=== PATIENT | male | born 1940 | race Caucasian/White ===

== ENCOUNTER 2016-11-21 15:38 | Inpatient (IN) ==
[2016-11-21 19:36] LABS: Basophils # 0.1 10*3/uL (0.0-0.2); Basophils % 0.7 % (0.0-0.8); Eosinophils # 0.1 10*3/uL (0.0-0.87); Hematocrit 42.9 VOL% (42.0-52.0); Hemoglobin 14.7 GM/DL (14.0-18.0); Immature Granulocytes % 0.1 %; Immature Granulocytes Absolute 0.01 #; Lymphocytes # 3.4 10*3/uL (1.4-4.0); Lymphocytes % 49.8 % (21.2-54.2); Mean Corpuscular HGB Conc 34.3 GM/DL (32-36); Mean Corpuscular Hemoglobin 31 PG (27-34); Mean Corpuscular Volume 89.9 FL (87-102); Monocytes % 14.2 % (1.7-12.7); Neutrophils # 2.3 10*3/uL (1.4-7.4); Neutrophils % 33.2 % (38.7-73.9); Platelet Count 409 T/CUMM (130-400); Red Blood Count 4.77 MC/CUMM (3.8-5.5); White Blood Count 6.8 T/CUMM (4-12)
[2016-11-21 19:57] LABS: Calcium 8.4 MG/DL (8.5-10.1); Osmolality,Calculated 280.3 MOS/KG (273-304); Potassium 4.1 MMOL/L (3.5-5.1)
[2016-11-21 20:57] LABS: Eosinophils 1 % (0-10); Lymphocytes 48 % (20-55); Platelet Estimate Normal; Segmented Neutrophils 37 % (50-85); Total Cells Counted 100
[2016-11-21] MEDS: DESITIN 4OZ/NYSTATIN 15 GRAM MIXTURE PASTE TOP SCH (21:36)
[2016-11-21] MEDS: CHLORHEXIDINE 4% SOLN 118 ML BOTTLE TOP SCH (21:40)
[2016-11-21] MEDS: CHLORHEXIDINE 0.12% ORAL RINSE 60 ML BOTTLE SWISH/SPIT SCH (21:40)
[2016-11-22 06:23] LABS: Basophils # 0.1 10*3/uL (0.0-0.2); Basophils % 0.7 % (0.0-0.8); Eosinophils # 0.2 10*3/uL (0.0-0.87); Eosinophils % 3.2 % (0.00-10.9); Hematocrit 42.5 VOL% (42.0-52.0); Hemoglobin 14.1 GM/DL (14.0-18.0); Immature Granulocytes % 0.1 %; Immature Granulocytes Absolute 0.01 #; Lymphocytes # 2.8 10*3/uL (1.4-4.0); Lymphocytes % 40.3 % (21.2-54.2); Mean Corpuscular HGB Conc 33.2 GM/DL (32-36); Mean Corpuscular Hemoglobin 30 PG (27-34); Mean Platelet Volume 9.1 FL (9.6-12.0); Monocytes % 14.3 % (1.7-12.7); Neutrophils # 2.9 10*3/uL (1.4-7.4); Neutrophils % 41.4 % (38.7-73.9); Platelet Count 410 T/CUMM (130-400); Red Blood Count 4.72 MC/CUMM (3.8-5.5); Red Cell Distribution Width 14.9 % (9.3-17.3)
[2016-11-22] MEDS: SODIUM CHLORIDE 0.9% 1,000 ML IV SCH ×2 (07:30→19:10)
--- NOTE | 2016-11-22 08:20 | XRay Report ---
XR chest 2V Date: 11/22/2016 4:00 AM History: Coronary artery disease Comparison: None Technique: PA and lateral chest Findings: The heart is minimally enlarged with calcification in the aortic knob. Coronary artery calcifications/stents. Calcified granulomata/nodes with diffuse parenchymal findings especially at the lung bases. Bilateral pleural thickening which is slightly more pronounced on the right. Unremarkable mediastinum with degenerative changes. Impression: Minimal cardiomegaly with coronary artery calcification/stents. Old healed granulomatous disease with probable chronic scarring with atelectasis at the lung bases. Bilateral pleural thickening which is more pronounced on the right. PROCEDURE INTERPRETED AT [facility] DEPARTMENT OF RADIOLOGY Final Report Signed by: Dr. Verito Bedolla
--- NOTE | 2016-11-22 09:02 | EKG Report ---
Stationary ECG Study [facility] Test Date: 11/22/2016 7:46:58 AM Pat Name: ADRI TORRE Department: Room: 294 Gender: M Records Analysis Manager: PACO : 1940 Requested by: Anselmo Rice Order Number: [id number] Reading MD: COLIN ROJAS Intervals [place] Rate: 66 P: 54 DE: 159 QRS: 83 QRSD: 107 T: -9 QT: 418 QTc: 431 Interpretive Statements SINUS RHYTHM MODERATE ST DEPRESSION ABNORMAL QRS-T ANGLE Electronically Signed On 11-24-16 15:42:22 CDT by COLIN ROJAS [email or web address]
--- NOTE | 2016-11-22 10:11 | Cardiothoracic History & Phys ---
Assessment and Plan - Time spent with patient Time spent with patient: Greater than 30 minutes Time spent discussing smoking cessation with patient: more than 10 minutes (1) Coronary arteriosclerosis Status: Acute Assessment and plan: Risk Model and Variables - STS Adult Cardiac Surgery Database Version 2.81 RISK SCORES About the STS Risk Calculator Procedure: AV Replacement + CAB Risk of Mortality: 4.356% Morbidity or Mortality: 26.943% Long Length of Stay: 16.517% Short Length of Stay: 17.739% Permanent Stroke: 1.488% Prolonged Ventilation: 19.08% DSW Infection: 0.968% Renal Failure: 10.115% Reoperation: 10.944% 76-year-old gentleman with severe aortic stenosis as well as single-vessel 80% stenosis of his LAD. The patient did have stent placed in 2010 and his LAD. This stenosis is proximal to it. The patient did have chest pain at rest that lasted 5 minutes prior to presentation to his elective cath. I transferred him from [place] over here for observation. The patient will need coronary artery bypass graft combined with aortic valve replacement however the patient has been on Plavix and the last Plavix was administered on November 21. Will need to hold the Plavix for at least 5 days. I tentatively scheduled him for surgery on November 26 for combined CABG/AVR. Risks benefits benefits and alternatives were discussed with the patient and he is willing and eager to proceed with the surgery. We will be observing for any chest pain development due to his unstable angina over the next few days. Current Visit: Yes History of Present Illness Chief complaint: Chest pain History of present illness: Mr. Kam is a 76 year old male who has a known aortic stenosis for the past few months. He has been having progressive shortness of breath. Upon questioning more he noted that he had 5 minutes of chest pain the night before his elective cath that was done at [place]. His cath showed 80% stenosis of his proximal LAD proximal to the stent that was placed back in 2010. Otherwise the patient has been active. He lost 12 pounds intentionally during the past few weeks. Home Medications Medication Instructions Recorded Confirmed Type Aspirin [Aspirin EC] 81 mg PO DAILY 11/21/16 11/21/16 History Azithromycin [Azithromycin] 500 mg PO DAILY 11/21/16 11/21/16 History Carvedilol [Carvedilol] 25 mg PO BID 11/21/16 11/21/16 History Cholecalciferol (Vitamin D3) 1 capsule PO DAILY 11/21/16 11/21/16 History [Vitamin D3] Cinnamon Bark [Cinnamon] 2,000 mg PO DAILY 11/21/16 11/21/16 History Clopidogrel Bisulfate [Clopidogrel] 75 mg PO DAILY 11/21/16 11/21/16 History Krill Oil 2,500 mg PO BEDTIME 11/21/16 11/21/16 History Minocycline [Minocin] 50 mg PO BID 11/21/16 11/21/16 History metFORMIN [Glucophage] 1,000 mg PO BID W/MEALS 11/21/16 11/21/16 History Allergies Allergy/AdvReac Type Severity Reaction Status Date / Time Horse/Equine Containing Allergy Intermediate RASH Verified 11/21/16 18:31 Products Khdpykc-Kqn-Eju Reductase AdvReac Intermediate Cramping Verified 11/21/16 18:31 Inhibitor of the Muscles 12 point system: reviewed and no additional remarkable complaints except as stated (HPI) Medical,Surgical,& Family Hx - Medical History Cardio: History of: Cardiac Dysrhythmia, CAD, Hypertension, Valvular Heart Disease Neurology: History of: Migraine Endocrine: History of: Diabetes Mellitus (NIDDM), Dyslipidemia Respiratory: History of: Asthma Genitourinary: History of: Kidney Stones, Prostate Problems Musculoskeletal: History of: Back/Neck Problems, Degenerative Disk Disease, Herniated Disk, Musculoskeletal Problems No history of: Amputation Hematology: No history of: Blood Transfusion Reaction - Surgical History Cardiac Surgeries: Sugical HX of: Cardiac Catheterization Thoracic Surgeries: Patient denies;: Organ Transplant, Lobectomy Neurologic Surgeries: Patient denies: Neurologic Surgery HEENT Surgeries: Patient denies: Tonsilectomy & Adenoidectomy Abdominal Surgeries: Surgical HX of: Abdominal Surgery (spleen) Reproductive Surgeries: Patient denies;: Genitourinary Surgery - Family History Family History: Reports;: Family Diabetes, Family Heart Disease, Family Hypertension - Social History Smoking Status: Former smoker Frequency of Alcohol Use: None Type of Drug Use: None Cardiology Physical Exam - Constitutional Vitals: Vital Signs Temp Pulse Resp BP Pulse Ox 97.4 F L 65 18 135/62 95 11/22/16 08:15 11/22/16 08:15 11/22/16 08:15 11/22/16 08:15 11/22/16 08:15 Intake and Output 11/21/16 11/22/16 11/22/16 22:59 06:59 14:59 Intake Total 120 / 120 120 / 120 Output Total 250 / 250 200 / 200 Balance -130 / -130 -80 / -80 Intake: Oral 120 / 120 120 / 120 Output: Urine 250 / 250 200 / 200 Other: Weight 122.47 kg 122.47 kg General appearance: morbidly obese - Head Head exam: Present: normal inspection - Eye Eye exam: Present: EOMI Pupils: Present: [place] - ENT ENT exam: Present: normal exam - Neck Neck exam: Present: normal inspection - Respiratory Respiratory exam: Present: prolonged expiratory phase, wheezes - Cardiovascular Cardiovascular exam: Present: regular rate and rhythm - GI/Abdominal GI/Abdominal exam: Present: normal bowel sounds Result/EKG - Labs CBC & BMP: 11/22/16 06:08 11/21/16 19:18 Labs: Laboratory Results - last 24 hr 11/21/16 11/21/16 11/21/16 18:42 19:18 19:18 WBC 6.8 RBC 4.77 Hgb 14.7 Hct 42.9 MCV 89.9 MCH 31 MCHC 34.3 RDW 15.0 Plt Count 409 H MPV 9.0 L Neut % (Auto) 33.2 L Lymph % (Auto) 49.8 [place] % (Auto) 14.2 H Eos % (Auto) 2.0 Baso % (Auto) 0.7 Neut # (Auto) 2.3 Lymph # (Auto) 3.4 [place] # (Auto) 1.0 H Eos # (Auto) 0.1 Baso # (Auto) 0.1 Total Counted 100 Immature Gran % 0.1 Nucleated RBC % 0.0 Immature Gran # 0.01 Segmented Neutrophils 37 L Lymphocytes 48 Monocytes 14 Eosinophils 1 Nucleated RBCs # 0.00 Platelet Estimate Normal Pappenheimer Bodies Medical Coder Sodium 141 Potassium 4.1 Chloride 106 Carbon Dioxide 27 Anion Gap 12.1 BUN 11 Creatinine 0.80 GFR Calculation 119 BUN/Creatinine Ratio 13.00 Glucose 123 H POC Glucose 145 H Calculated Osmolality 280.3 Calcium 8.4 L 11/21/16 11/22/16 23:39 06:08 WBC 7.0 RBC 4.72 Hgb 14.1 Hct 42.5 MCV 90.0 MCH 30 MCHC 33.2 RDW 14.9 Plt Count 410 H MPV 9.1 L Neut % (Auto) 41.4 Lymph % (Auto) 40.3 [place] % (Auto) 14.3 H Eos % (Auto) 3.2 Baso % (Auto) 0.7 Neut # (Auto) 2.9 Lymph # (Auto) 2.8 [place] # (Auto) 1.0 H Eos # (Auto) 0.2 Baso # (Auto) 0.1 Total Counted Immature Gran % 0.1 Nucleated RBC % 0.0 Immature Gran # 0.01 Segmented Neutrophils Lymphocytes Monocytes Eosinophils Nucleated RBCs # 0.00 Platelet Estimate Pappenheimer Bodies Sodium Potassium Chloride Carbon Dioxide Anion Gap BUN Creatinine GFR Calculation BUN/Creatinine Ratio Glucose POC Glucose 147 H Calculated Osmolality Calcium Quality Measures - Stroke Symptom Onset Unknown: No
[2016-11-22] MEDS: CHLORHEXIDINE 4% SOLN 118 ML BOTTLE TOP SCH ×2 (13:12→19:11)
[2016-11-22] MEDS: CHLORHEXIDINE 0.12% ORAL RINSE 60 ML BOTTLE SWISH/SPIT SCH ×2 (13:12→21:10)
[2016-11-22] MEDS: DESITIN 4OZ/NYSTATIN 15 GRAM MIXTURE PASTE TOP SCH ×2 (13:26→21:10)
[2016-11-22] MEDS: ENOXAPARIN 40 MG/0.4 ML SYRINGE SUBCUT SCH (13:26)
--- NOTE | 2016-11-22 14:14 | Cardiology Consult Note ---
Assessment and Plan (1) Aortic stenosis, severe Status: Acute Assessment and plan: 1. 76-year-old BMI 40 WM with controlled hypertension, untreated dyslipidemia ( statins cause cramping after several days), NIDDM, JORDAN (reports he uses CPAP religiously) known CAD status post LAD stenting in 2010, with known severe aortic stenosis with worsening dyspnea on exertion, and some modest exertional angina (worrisome prognostic sign if it is due to aortic stenosis), with recent heart catheterization showing 80% proximal LAD stenosis, admitted for planned AVR/CABG 2. Will resume Coreg and baby aspirin 3. Plavix is being held since yesterday for planned surgery next Friday. 4. We discussed starting statin every other day before his surgery as this may improve his outcome; he can be discontinued if he has side effects, but he has no allergy. 5. He describes what may be paroxysmal atrial fibrillation, but I have no documentation of this. He is in normal sinus rhythm currently. He has no history of TIA stroke, blood clot, or bleeding problems. 6. We will check back on Friday, call cardiology on the if needed. Current Visit: Yes (2) Angina effort Status: Acute Current Visit: Yes History of Present Illness - Consult Narrative History of present illness: Mr. Kam is a 76 year old male followed by Dr. Dugan at [facility] who is had severe aortic stenosis for some time. He had a episode of chest "burning" while lying in bed last week. He reports this concerned Dr. Dugan he brought him in for heart catheterization to better evaluate his aortic stenosis. He had 80% proximal LAD stenosis and his aortic stenosis was felt to be critical. He was transferred here for bypass and AVR. His last dose of Plavix was reported yesterday. He denies any history of blood clots or bleeding problems. He denies any history of TIA or stroke. Denies history of heart attack. He reports that he uses CPAP religiously. CC: Anselmo Rice - Home Medications and Allergies Home Medications: Home Medications Medication Instructions Recorded Confirmed Type Aspirin [Aspirin EC] 81 mg PO DAILY 11/21/16 11/21/16 History Azithromycin [Azithromycin] 500 mg PO DAILY 11/21/16 11/21/16 History Carvedilol [Carvedilol] 25 mg PO BID 11/21/16 11/21/16 History Cholecalciferol (Vitamin D3) 1 capsule PO DAILY 11/21/16 11/21/16 History [Vitamin D3] Cinnamon Bark [Cinnamon] 2,000 mg PO DAILY 11/21/16 11/21/16 History Clopidogrel Bisulfate [Clopidogrel] 75 mg PO DAILY 11/21/16 11/21/16 History Krill Oil 2,500 mg PO BEDTIME 11/21/16 11/21/16 History Minocycline [Minocin] 50 mg PO BID 11/21/16 11/21/16 History metFORMIN [Glucophage] 1,000 mg PO BID W/MEALS 11/21/16 11/21/16 History Allergies/Adverse Reactions: Allergies Allergy/AdvReac Type Severity Reaction Status Date / Time Horse/Equine Containing Allergy Intermediate RASH Verified 11/21/16 18:31 Products Jyzkqwy-Lpo-Zrw Reductase AdvReac Intermediate Cramping Verified 11/21/16 18:31 Inhibitor of the Muscles Medical,Surgical,& Family Hx - Medical History Cardio: History of: Cardiac Dysrhythmia, CAD, Hypertension, Valvular Heart Disease Neurology: History of: Migraine Endocrine: History of: Diabetes Mellitus (NIDDM), Dyslipidemia Respiratory: History of: Asthma Genitourinary: History of: Kidney Stones, Prostate Problems Musculoskeletal: History of: Back/Neck Problems, Degenerative Disk Disease, Herniated Disk, Musculoskeletal Problems No history of: Amputation Hematology: No history of: Blood Transfusion Reaction - Surgical History Cardiac Surgeries: Sugical HX of: Cardiac Catheterization Thoracic Surgeries: Patient denies;: Organ Transplant, Lobectomy Neurologic Surgeries: Patient denies: Neurologic Surgery HEENT Surgeries: Patient denies: Tonsilectomy & Adenoidectomy Abdominal Surgeries: Surgical HX of: Abdominal Surgery (spleen) Reproductive Surgeries: Patient denies;: Genitourinary Surgery - Family History Family History: Reports;: Family Diabetes, Family Heart Disease, Family Hypertension - Social History Smoking Status: Former smoker Frequency of Alcohol Use: None Type of Drug Use: None Physical Examination Vital Signs Temp Pulse Resp BP Pulse Ox 97.4 F L 67 18 143/66 92 L 11/21/16 18:23 11/21/16 18:23 11/21/16 18:23 11/21/16 18:23 11/21/16 18:23 General: Present: Appears Well, No Apparent Distress HEENT: Present: Normocephaly Neck: Present: Supple Neck, No JVD/HJR Cardiac: Present: Reg Rate and Rhythm, Systolic Murmur. Absent: Diastolic Murmur Lungs: Present: Decreased Breath Sounds, No Wheezes, No Rales Abdomen: Present: Soft, Non-Tender Extremities: Present: +1 Edema. Absent: Cyanosis Result/EKG - Labs CBC & BMP: 11/22/16 06:08 11/21/16 19:18 Labs: Laboratory Results - last 24 hr 11/21/16 11/21/16 11/21/16 18:42 19:18 19:18 WBC 6.8 RBC 4.77 Hgb 14.7 Hct 42.9 MCV 89.9 MCH 31 MCHC 34.3 RDW 15.0 Plt Count 409 H MPV 9.0 L Neut % (Auto) 33.2 L Lymph % (Auto) 49.8 [place] % (Auto) 14.2 H Eos % (Auto) 2.0 Baso % (Auto) 0.7 Neut # (Auto) 2.3 Lymph # (Auto) 3.4 [place] # (Auto) 1.0 H Eos # (Auto) 0.1 Baso # (Auto) 0.1 Total Counted 100 Immature Gran % 0.1 Nucleated RBC % 0.0 Immature Gran # 0.01 Segmented Neutrophils 37 L Lymphocytes 48 Monocytes 14 Eosinophils 1 Nucleated RBCs # 0.00 Platelet Estimate Normal Pappenheimer Bodies Oncology Account Specialist Sodium 141 Potassium 4.1 Chloride 106 Carbon Dioxide 27 Anion Gap 12.1 BUN 11 Creatinine 0.80 GFR Calculation 119 BUN/Creatinine Ratio 13.00 Glucose 123 H POC Glucose 145 H Calculated Osmolality 280.3 Calcium 8.4 L 11/21/16 11/22/16 23:39 06:08 WBC 7.0 RBC 4.72 Hgb 14.1 Hct 42.5 MCV 90.0 MCH 30 MCHC 33.2 RDW 14.9 Plt Count 410 H MPV 9.1 L Neut % (Auto) 41.4 Lymph % (Auto) 40.3 [place] % (Auto) 14.3 H Eos % (Auto) 3.2 Baso % (Auto) 0.7 Neut # (Auto) 2.9 Lymph # (Auto) 2.8 [place] # (Auto) 1.0 H Eos # (Auto) 0.2 Baso # (Auto) 0.1 Total Counted Immature Gran % 0.1 Nucleated RBC % 0.0 Immature Gran # 0.01 Segmented Neutrophils Lymphocytes Monocytes Eosinophils Nucleated RBCs # 0.00 Platelet Estimate Pappenheimer Bodies Sodium Potassium Chloride Carbon Dioxide Anion Gap BUN Creatinine GFR Calculation BUN/Creatinine Ratio Glucose POC Glucose 147 H Calculated Osmolality Calcium Quality Measures - Stroke Symptom Onset Unknown: No
[2016-11-22] MEDS: CARVEDILOL 12.5 MG TABLET PO SCH (21:10)
[2016-11-23 05:56] LABS: Basophils # 0.1 10*3/uL (0.0-0.2); Basophils % 0.8 % (0.0-0.8); Eosinophils # 0.3 10*3/uL (0.0-0.87); Eosinophils % 4.2 % (0.00-10.9); Hematocrit 43.7 VOL% (42.0-52.0); Hemoglobin 14.7 GM/DL (14.0-18.0); Immature Granulocytes % 0.3 %; Immature Granulocytes Absolute 0.02 #; Lymphocytes # 2.7 10*3/uL (1.4-4.0); Lymphocytes % 43.9 % (21.2-54.2); Mean Corpuscular HGB Conc 33.6 GM/DL (32-36); Mean Corpuscular Hemoglobin 30 PG (27-34); Mean Corpuscular Volume 90.5 FL (87-102); Monocytes # 0.9 10*3/uL (0.11-0.8); Neutrophils # 2.2 10*3/uL (1.4-7.4); Neutrophils % 35.8 % (38.7-73.9); Platelet Count 396 T/CUMM (130-400); Red Blood Count 4.83 MC/CUMM (3.8-5.5); Red Cell Distribution Width 14.7 % (9.3-17.3); White Blood Count 6.2 T/CUMM (4-12)
[2016-11-23 06:19] LABS: Magnesium 2.2 MG/DL (1.8-2.4); Osmolality,Calculated 281.3 MOS/KG (273-304); Potassium 4.2 MMOL/L (3.5-5.1)
[2016-11-23 06:29] LABS: Eosinophils 2 % (0-10); Hypochromasia 1+; Lymphocytes 52 % (20-55); Segmented Neutrophils 34 % (50-85); Total Cells Counted 100
[2016-11-23 06:30] LABS: Platelet Estimate Normal
[2016-11-23] MEDS: ASPIRIN CHEW 81 MG TABLET PO SCH (09:18)
[2016-11-23] MEDS: CARVEDILOL 12.5 MG TABLET PO SCH ×2 (09:18→21:55)
[2016-11-23] MEDS: DESITIN 4OZ/NYSTATIN 15 GRAM MIXTURE PASTE TOP SCH ×2 (09:19→22:01)
[2016-11-23] MEDS: CHLORHEXIDINE 0.12% ORAL RINSE 60 ML BOTTLE SWISH/SPIT SCH ×2 (09:19→21:56)
[2016-11-23] MEDS ORDERED: DEXTROSE 50% 25 GM/50 ML VIAL IV PRN (13:28)
[2016-11-23] MEDS ORDERED: GLUCAGON 1 MG VIAL IM PRN (13:28)
[2016-11-23] MEDS: ENOXAPARIN 40 MG/0.4 ML SYRINGE SUBCUT SCH (15:06)
[2016-11-23] MEDS: INSULIN REGULAR 100 UNIT/ML SUBCUT SCH ×2 (16:51→21:40)
[2016-11-23] MEDS: metFORMIN 500 MG TABLET PO SCH (17:23)
[2016-11-23] MEDS: SODIUM CHLORIDE 0.9% 1,000 ML IV SCH (17:36)
[2016-11-24 04:13] LABS: Basophils # 0.1 10*3/uL (0.0-0.2); Basophils % 0.9 % (0.0-0.8); Eosinophils # 0.4 10*3/uL (0.0-0.87); Eosinophils % 5.5 % (0.00-10.9); Hematocrit 42.4 VOL% (42.0-52.0); Hemoglobin 14.1 GM/DL (14.0-18.0); Immature Granulocytes % 0.3 %; Immature Granulocytes Absolute 0.02 #; Lymphocytes # 3.5 10*3/uL (1.4-4.0); Lymphocytes % 50.9 % (21.2-54.2); Mean Corpuscular HGB Conc 33.3 GM/DL (32-36); Mean Corpuscular Hemoglobin 30 PG (27-34); Mean Corpuscular Volume 89.5 FL (87-102); Mean Platelet Volume 9.3 FL (9.6-12.0); Monocytes % 14.4 % (1.7-12.7); Neutrophils # 1.9 10*3/uL (1.4-7.4); Platelet Count 431 T/CUMM (130-400); Red Blood Count 4.74 MC/CUMM (3.8-5.5); Red Cell Distribution Width 14.8 % (9.3-17.3); White Blood Count 6.9 T/CUMM (4-12)
[2016-11-24 04:37] LABS: Calcium 8.9 MG/DL (8.5-10.1); Magnesium 2.1 MG/DL (1.8-2.4); Osmolality,Calculated 279.4 MOS/KG (273-304); Potassium 4.4 MMOL/L (3.5-5.1)
[2016-11-24 04:59] LABS: Eosinophils 5 % (0-10); Lymphocytes 50 % (20-55); Segmented Neutrophils 34 % (50-85); Total Cells Counted 100
[2016-11-24 05:00] LABS: Platelet Estimate Normal
[2016-11-24] MEDS: DESITIN 4OZ/NYSTATIN 15 GRAM MIXTURE PASTE TOP SCH ×2 (09:00→22:15)
[2016-11-24] MEDS: CHLORHEXIDINE 0.12% ORAL RINSE 60 ML BOTTLE SWISH/SPIT SCH ×2 (09:00→22:15)
[2016-11-24] MEDS: CARVEDILOL 12.5 MG TABLET PO SCH ×2 (09:18→22:16)
[2016-11-24] MEDS: ASPIRIN CHEW 81 MG TABLET PO SCH (09:18)
[2016-11-24] MEDS: INSULIN REGULAR 100 UNIT/ML SUBCUT SCH ×4 (09:55→22:40)
[2016-11-24] MEDS: metFORMIN 500 MG TABLET PO SCH ×2 (09:57→18:31)
[2016-11-24] MEDS: CIPROFLOXACIN/DEXAMETHASONE OTIC SUSP 7.5 ML BOTTLE BOTH EARS SCH ×2 (10:43→22:13)
--- NOTE | 2016-11-24 11:14 | Cardiothoracic Progress Note ---
Assessment and Plan (1) Coronary arteriosclerosis Status: Acute Assessment and plan: 76-year-old gentleman with severe aortic stenosis and a single-vessel left anterior descending coronary disease. The patient was transferred here for combined CABG aVR. He also was noted to have some unstable angina symptoms prior to admission. He was being placed under observation for that purpose. He is scheduled for surgery on Saturday, November 26, 2016. He currently has no symptoms. Of note the patient was on Plavix until . Current Visit: Yes Exam (Progress Note) - Constitutional Vitals: Period Temp Pulse Resp BP Sys/Brock Pulse Ox Last 24 Hr 97.9 F-98.6 F 72-80 18-20 105-145/52-83 91-96 Result/EKG - Labs CBC & BMP: 11/24/16 03:24 11/24/16 03:24 Labs: Laboratory Results - last 24 hr 11/23/16 11/23/16 11/24/16 16:23 20:49 03:24 WBC 6.9 RBC 4.74 Hgb 14.1 Hct 42.4 MCV 89.5 MCH 30 MCHC 33.3 RDW 14.8 Plt Count 431 H MPV 9.3 L Neut % (Auto) 28.0 L Lymph % (Auto) 50.9 [place] % (Auto) 14.4 H Eos % (Auto) 5.5 Baso % (Auto) 0.9 H Neut # (Auto) 1.9 Lymph # (Auto) 3.5 [place] # (Auto) 1.0 H Eos # (Auto) 0.4 Baso # (Auto) 0.1 Total Counted 100 Immature Gran % 0.3 Nucleated RBC % 0.0 Immature Gran # 0.02 Segmented Neutrophils 34 L Lymphocytes 50 Monocytes 10 Eosinophils 5 Basophils 1.0 H Nucleated RBCs # 0.00 Platelet Estimate Normal Pappenheimer Bodies Accounts Receivable Supervisor Sodium Potassium Chloride Carbon Dioxide Anion Gap BUN Creatinine GFR Calculation BUN/Creatinine Ratio Glucose POC Glucose 112 H 134 H Calculated Osmolality Calcium Magnesium 11/24/16 03:24 WBC RBC Hgb Hct MCV MCH MCHC RDW Plt Count MPV Neut % (Auto) Lymph % (Auto) [place] % (Auto) Eos % (Auto) Baso % (Auto) Neut # (Auto) Lymph # (Auto) [place] # (Auto) Eos # (Auto) Baso # (Auto) Total Counted Immature Gran % Nucleated RBC % Immature Gran # Segmented Neutrophils Lymphocytes Monocytes Eosinophils Basophils Nucleated RBCs # Platelet Estimate Pappenheimer Bodies Sodium 140 Potassium 4.4 Chloride 105 Carbon Dioxide 25 Anion Gap 14.4 BUN 13 Creatinine 0.80 GFR Calculation 119 BUN/Creatinine Ratio 16.00 Glucose 124 H POC Glucose Calculated Osmolality 279.4 Calcium 8.9 Magnesium 2.1 Quality Measures - Stroke Symptom Onset Unknown: No
[2016-11-24] MEDS: ENOXAPARIN 40 MG/0.4 ML SYRINGE SUBCUT SCH (12:13)
[2016-11-25 06:02] LABS: Basophils # 0.1 10*3/uL (0.0-0.2); Eosinophils # 0.3 10*3/uL (0.0-0.87); Eosinophils % 4.8 % (0.00-10.9); Hematocrit 42.3 VOL% (42.0-52.0); Hemoglobin 14.3 GM/DL (14.0-18.0); Immature Granulocytes % 0.1 %; Immature Granulocytes Absolute 0.01 #; Lymphocytes # 3.3 10*3/uL (1.4-4.0); Lymphocytes % 48.2 % (21.2-54.2); Mean Corpuscular HGB Conc 33.8 GM/DL (32-36); Mean Corpuscular Hemoglobin 31 PG (27-34); Mean Corpuscular Volume 90.2 FL (87-102); Monocytes # 1.2 10*3/uL (0.11-0.8); Monocytes % 16.8 % (1.7-12.7); Neutrophils % 29.1 % (38.7-73.9); Platelet Count 401 T/CUMM (130-400); Red Blood Count 4.69 MC/CUMM (3.8-5.5); Red Cell Distribution Width 14.8 % (9.3-17.3); White Blood Count 6.8 T/CUMM (4-12)
[2016-11-25 06:36] LABS: Calcium 8.8 MG/DL (8.5-10.1); Magnesium 2.1 MG/DL (1.8-2.4); Osmolality,Calculated 283.3 MOS/KG (273-304); Potassium 4.5 MMOL/L (3.5-5.1)
[2016-11-25 06:41] LABS: Band Neutrophils 1 % (0-10); Eosinophils 2 % (0-10); Lymphocytes 52 % (20-55); Nucleated Red Blood Cells 1 (0-5); Segmented Neutrophils 38 % (50-85); Total Cells Counted 100
[2016-11-25 06:43] LABS: Hypochromasia 1+; Microcytosis 1+; Platelet Estimate Increased
[2016-11-25] MEDS: INSULIN REGULAR 100 UNIT/ML SUBCUT SCH ×4 (08:36→22:04)
--- NOTE | 2016-11-25 09:34 | Cardiology Progress Note ---
Assessment and Plan (1) Coronary arteriosclerosis Status: Chronic Assessment and plan: See plan of care listed below. Current Visit: Yes (2) Aortic stenosis, severe Status: Acute Assessment and plan: See plan of care listed below. Current Visit: Yes (3) Hypertension Status: Chronic Assessment and plan: See plan of care listed below. Current Visit: Yes (4) JORDAN (obstructive sleep apnea) Status: Chronic Assessment and plan: See plan of care listed below. Current Visit: Yes (5) Diabetes Status: Chronic Assessment and plan: See plan of care listed below. Current Visit: Yes Cardiology - PN: Subj Interval history: Cotton Picker Operator: Dr. Dugan SUMMARY : Mr. Kam is a 76 year old male followed by Dr. Dugan at [facility] who is had severe aortic stenosis for some time. PMH includes JORDAN (wears CPAP nightly) He had a episode of chest "burning" while lying in bed last week. He reports this concerned Dr. Dugan so he brought him in for heart catheterization to better evaluate his aortic stenosis. He had 80% proximal LAD stenosis and his aortic stenosis was felt to be critical. He was transferred here for bypass and AVR. His last dose of Plavix was 11/21/16. Dr. Rice plans for AVR and CABG tomorrow, 11/26/16. November 25, - Patient was seen and examined on the telemetry unit. He is sitting up eating breakfast this morning in no acute distress. [place]by chest pain , heaviness and tightness. Vital signs are stable. Labs review, overall are unremarkable. Currently in normal sinus rhythm with heart rates in the 60s without any overt arrhythmias or ectopy noted. ASSESSMENT/PLAN: 1. SEVERE AORTIC STENOSIS - Clinically stable at present. Plan for AVR tomorrow morning per Dr. Rice. 2. CORONARY ARTERIOSCLEROSIS - Clinically stable at present. Continue beta- blockade. Continue to hold Plavix for planned CABG with combined AVR in the morning per Dr. Rice. 3. HYPERTENSION - This is clinically stable at present. Continue current plan of care. 4. JORDAN - CPAP nightly. 5. DIABETES - Continue current plan of care with sliding scale insulin. Further plan and addendum to follow per Dr. Bee. Exam (Progress Note) - Constitutional Vitals: Period Temp Pulse Resp BP Sys/Brock Pulse Ox Last 24 Hr 97 F-99 F 66-80 18-20 113-135/57-68 92-95 Exam: General: Appears well with no apparent distress. Pleasant and cooperative. Appears comfortable. HEENT: PERRL, normocephalic, atraumatic. Mucous membranes moist. No jaundice noted. Conjunctiva moist and clear, sclerae anicteric Neck: No JVD/HJR, no thyromegaly or lymphadenopathy noted. No carotid bruit appreciated Cardiac: Regular rate and rhythm. Systolic Murmur consistent with Aortic stenosis. Lungs: Decreased breath sounds, without accessory muscle use to assist the respiratory pattern. Not requiring oxygen. Abdomen: Soft, bowel sounds normoactive. Nontender and nondistended. No abdominal bruit or thrill noted. No masses noted. Extremities: No clubbing, cyanosis noted. No edema noted. Upper extremity pulses 2+. Lower extremity pulses 2+. Capillary refill less than 3 seconds. Skin: No unusual lesions or rashes. No skin breakdown appreciated. Neuro: Awake, alert and oriented 3. Moves all extremities well without hemiparesis or paralysis. No essential tremor is appreciated. Result/EKG - Labs CBC & BMP: 11/25/16 05:44 11/25/16 05:44 Lab Results: I have reviewed the past 24 hour labs Labs: Laboratory Results - last 24 hr 11/24/16 11/24/16 11/24/16 07:15 11:38 15:29 WBC RBC Hgb Hct MCV MCH MCHC RDW Plt Count MPV Neut % (Auto) Lymph % (Auto) [place] % (Auto) Eos % (Auto) Baso % (Auto) Neut # (Auto) Lymph # (Auto) [place] # (Auto) Eos # (Auto) Baso # (Auto) Total Counted Immature Gran % Nucleated RBC % Immature Gran # Segmented Neutrophils Band Neutrophils Lymphocytes Monocytes Eosinophils Nucleated RBCs Nucleated RBCs # Platelet Estimate Hypochromasia Microcytosis Sodium Potassium Chloride Carbon Dioxide Anion Gap BUN Creatinine GFR Calculation BUN/Creatinine Ratio Glucose POC Glucose 132 H 128 H 141 H Calculated Osmolality Calcium Magnesium Blood Type Antibody Screen Crossmatch 11/24/16 11/25/16 11/25/16 21:54 05:44 05:44 WBC 6.8 RBC 4.69 Hgb 14.3 Hct 42.3 MCV 90.2 MCH 31 MCHC 33.8 RDW 14.8 Plt Count 401 H MPV 9.0 L Neut % (Auto) 29.1 L Lymph % (Auto) 48.2 [place] % (Auto) 16.8 H Eos % (Auto) 4.8 Baso % (Auto) 1.0 H Neut # (Auto) 2.0 Lymph # (Auto) 3.3 [place] # (Auto) 1.2 H Eos # (Auto) 0.3 Baso # (Auto) 0.1 Total Counted 100 Immature Gran % 0.1 Nucleated RBC % 0.0 Immature Gran # 0.01 Segmented Neutrophils 38 L Band Neutrophils 1 Lymphocytes 52 Monocytes 7 Eosinophils 2 Nucleated RBCs 1 Nucleated RBCs # 0.00 Platelet Estimate Increased Hypochromasia 1+ Microcytosis 1+ Sodium Potassium Chloride Carbon Dioxide Anion Gap BUN Creatinine GFR Calculation BUN/Creatinine Ratio Glucose POC Glucose 137 H Calculated Osmolality Calcium Magnesium Blood Type A POSITIVE Antibody Screen Negative Crossmatch See Detail 11/25/16 11/25/16 11/25/16 05:44 07:37 Unknown WBC RBC Hgb Hct MCV MCH MCHC RDW Plt Count MPV Neut % (Auto) Lymph % (Auto) [place] % (Auto) Eos % (Auto) Baso % (Auto) Neut # (Auto) Lymph # (Auto) [place] # (Auto) Eos # (Auto) Baso # (Auto) Total Counted Immature Gran % Nucleated RBC % Immature Gran # Segmented Neutrophils Band Neutrophils Lymphocytes Monocytes Eosinophils Nucleated RBCs Nucleated RBCs # Platelet Estimate Hypochromasia Microcytosis Sodium 141 Potassium 4.5 Chloride 107 Carbon Dioxide 25 Anion Gap 13.5 BUN 14 Creatinine 0.80 GFR Calculation 119 BUN/Creatinine Ratio 17.00 Glucose 132 H POC Glucose 136 H Calculated Osmolality 283.3 Calcium 8.8 Magnesium 2.1 Blood Type A POSITIVE Antibody Screen Crossmatch Quality Measures - Stroke Symptom Onset Unknown: No
[2016-11-25] MEDS: CARVEDILOL 12.5 MG TABLET PO SCH ×2 (09:52→21:04)
[2016-11-25] MEDS: ASPIRIN CHEW 81 MG TABLET PO SCH (09:52)
[2016-11-25] MEDS: metFORMIN 500 MG TABLET PO SCH ×2 (09:53→16:04)
[2016-11-25] MEDS: CIPROFLOXACIN/DEXAMETHASONE OTIC SUSP 7.5 ML BOTTLE BOTH EARS SCH ×2 (09:53→21:05)
[2016-11-25] MEDS: CHLORHEXIDINE 0.12% ORAL RINSE 60 ML BOTTLE SWISH/SPIT SCH ×2 (09:54→22:04)
[2016-11-25] MEDS: DESITIN 4OZ/NYSTATIN 15 GRAM MIXTURE PASTE TOP SCH ×2 (09:54→22:05)
[2016-11-25] MEDS: ENOXAPARIN 40 MG/0.4 ML SYRINGE SUBCUT SCH (12:36)
[2016-11-25] MEDS ORDERED: ALBUTEROL 2.5 MG/3 ML NEB RESP TX ONE (14:08)
[2016-11-25] MEDS ORDERED: IPRATROPIUM 500 MCG/2.5 ML NEB RESP TX ONE (14:08)
[2016-11-25 14:39] LABS: ABG Base Excess 1.3 MMOL/L (-2.5-2.5); ABG HCO3 25.9 MMOL/L (20-26); ABG Oxygen Saturation 94.1 % (95-100); ABG PCO2 40.8 MM HG (35-48); ABG PO2 70.3 MM HG (80-95); ABG TCO2 27.1 MMOL/L (23-27); Pt O2 Delivery Device Room Air
[2016-11-26] MEDS ORDERED: PAPAVERINE 60 MG/2 ML VIAL ONE (04:45)
[2016-11-26] MEDS ORDERED: TISSUE ADHESIVE 1 EACH APPLICATOR TOP ONE (04:46)
[2016-11-26] MEDS ORDERED: VANCOMYCIN 1,000 MG VIAL ONE ×2 (04:46→12:35)
[2016-11-26] MEDS ORDERED: FAMOTIDINE 20 MG TABLET PO ONE (05:00)
[2016-11-26] MEDS ORDERED: LORazepam 1 MG TABLET PO ONE (05:00)
[2016-11-26] MEDS ORDERED: CEFUROXIME INJ 1,500 MG in SODIUM CHLORIDE 0.9% 100 ML IV ONE (05:00)
[2016-11-26 05:32] LABS: Basophils # 0.1 10*3/uL (0.0-0.2); Basophils % 0.7 % (0.0-0.8); Eosinophils # 0.3 10*3/uL (0.0-0.87); Eosinophils % 3.3 % (0.00-10.9); Hematocrit 46.2 VOL% (42.0-52.0); Hemoglobin 15.9 GM/DL (14.0-18.0); Immature Granulocytes % 0.4 %; Immature Granulocytes Absolute 0.03 #; Lymphocytes # 3.8 10*3/uL (1.4-4.0); Lymphocytes % 47.3 % (21.2-54.2); Mean Corpuscular HGB Conc 34.4 GM/DL (32-36); Mean Corpuscular Hemoglobin 31 PG (27-34); Mean Corpuscular Volume 89.2 FL (87-102); Monocytes # 1.2 10*3/uL (0.11-0.8); Monocytes % 14.4 % (1.7-12.7); Neutrophils # 2.7 10*3/uL (1.4-7.4); Neutrophils % 33.9 % (38.7-73.9); Platelet Count 459 T/CUMM (130-400); Red Blood Count 5.18 MC/CUMM (3.8-5.5); Red Cell Distribution Width 14.7 % (9.3-17.3); White Blood Count 8.1 T/CUMM (4-12)
[2016-11-26 05:57] LABS: Calcium 9.2 MG/DL (8.5-10.1); Magnesium 2.2 MG/DL (1.8-2.4); Osmolality,Calculated 279.5 MOS/KG (273-304); Potassium 4.6 MMOL/L (3.5-5.1)
[2016-11-26 06:11] LABS: Eosinophils 1 % (0-10); Hypochromasia 2+; Lymphocytes 62 % (20-55); Microcytosis 1+; Platelet Estimate Adequate; Segmented Neutrophils 25 % (50-85); Total Cells Counted 100
--- NOTE | 2016-11-26 06:43 | Cardiology Progress Note ---
Assessment and Plan - Time spent with patient Time spent with patient: Less than 30 minutes (1) Obesity Status: Chronic Current Visit: Yes (2) Coronary arteriosclerosis Status: Chronic Current Visit: Yes (3) Aortic stenosis, severe Status: Chronic Current Visit: Yes (4) Hypertension Status: Chronic Current Visit: Yes (5) JORDAN (obstructive sleep apnea) Status: Chronic Current Visit: Yes (6) Diabetes Status: Chronic Current Visit: Yes Qualifiers: Diabetes mellitus type: type 2 Diabetes mellitus complication status: with unspecified complications (7) Dyslipidemia Status: Chronic Current Visit: Yes Cardiology - PN: Subj Interval history: Mr. Kam has no complaints this morning. He states he is ready for surgery. I answered his questions. I told him about the importance of using his incentive spirometry post surgery and talk to him about his postsurgical follow- up what we anticipated. He has no new complaints. Exam (Progress Note) - Constitutional Vitals: Period Temp Pulse Resp BP Sys/Brock Pulse Ox Last 24 Hr 97.7 F-99.6 F 66-87 18-22 115-144/56-76 93-97 General appearance: morbidly obese - Head Head exam: Present: normal inspection - Eye Eye exam: Present: EOMI - Respiratory Respiratory exam: Present: clear to auscultation bilaterally (Fairly good effort I told him about the importance of deep breathing post surgery) - Cardiovascular Cardiovascular exam: Present: regular rate and rhythm (3/6 murmur severe aortic stenosis), other - GI/Abdominal GI/Abdominal exam: Present: normal bowel sounds - Extremities Exam Extremities exam: Present: normal inspection. Absent: edema - Neurological Exam Neurological exam: Present: alert, oriented X3 - Psychiatric Psychiatric exam: Present: normal affect, normal mood - Skin Skin exam: Present: normal color Result/EKG - Labs CBC & BMP: 11/26/16 05:18 11/26/16 05:18 Labs: Laboratory Results - last 24 hr 11/25/16 11/25/16 11/25/16 05:44 05:44 05:44 WBC RBC Hgb Hct MCV MCH MCHC RDW Plt Count MPV Neut % (Auto) Lymph % (Auto) Roberts % (Auto) Eos % (Auto) Baso % (Auto) Neut # (Auto) Lymph # (Auto) Roberts # (Auto) Eos # (Auto) Baso # (Auto) Total Counted 100 Immature Gran % Nucleated RBC % Immature Gran # Segmented Neutrophils 38 L Band Neutrophils 1 Lymphocytes 52 Monocytes 7 Eosinophils 2 Nucleated RBCs 1 Nucleated RBCs # Platelet Estimate Increased Hypochromasia 1+ Microcytosis 1+ ABG pH ABG pCO2 ABG pO2 ABG HCO3 ABG Total CO2 ABG O2 Saturation ABG Base Excess FiO2 Sodium 141 Potassium 4.5 Chloride 107 Carbon Dioxide 25 Anion Gap 13.5 BUN 14 Creatinine 0.80 GFR Calculation 119 BUN/Creatinine Ratio 17.00 Glucose 132 H POC Glucose Calculated Osmolality 283.3 Calcium 8.8 Magnesium 2.1 Blood Type A POSITIVE Antibody Screen Negative Crossmatch See Detail 11/25/16 11/25/16 11/25/16 07:37 11:35 14:25 WBC RBC Hgb Hct MCV MCH MCHC RDW Plt Count MPV Neut % (Auto) Lymph % (Auto) Roberts % (Auto) Eos % (Auto) Baso % (Auto) Neut # (Auto) Lymph # (Auto) Roberts # (Auto) Eos # (Auto) Baso # (Auto) Total Counted Immature Gran % Nucleated RBC % Immature Gran # Segmented Neutrophils Band Neutrophils Lymphocytes Monocytes Eosinophils Nucleated RBCs Nucleated RBCs # Platelet Estimate Hypochromasia Microcytosis ABG pH 7.420 ABG pCO2 40.8 ABG pO2 70.3 L ABG HCO3 25.9 ABG Total CO2 27.1 H ABG O2 Saturation 94.1 L ABG Base Excess 1.3 FiO2 21.00 Sodium Potassium Chloride Carbon Dioxide Anion Gap BUN Creatinine GFR Calculation BUN/Creatinine Ratio Glucose POC Glucose 136 H 137 H Calculated Osmolality Calcium Magnesium Blood Type Antibody Screen Crossmatch 11/25/16 11/25/16 11/25/16 15:50 19:29 Unknown WBC RBC Hgb Hct MCV MCH MCHC RDW Plt Count MPV Neut % (Auto) Lymph % (Auto) Roberts % (Auto) Eos % (Auto) Baso % (Auto) Neut # (Auto) Lymph # (Auto) Roberts # (Auto) Eos # (Auto) Baso # (Auto) Total Counted Immature Gran % Nucleated RBC % Immature Gran # Segmented Neutrophils Band Neutrophils Lymphocytes Monocytes Eosinophils Nucleated RBCs Nucleated RBCs # Platelet Estimate Hypochromasia Microcytosis ABG pH ABG pCO2 ABG pO2 ABG HCO3 ABG Total CO2 ABG O2 Saturation ABG Base Excess FiO2 Sodium Potassium Chloride Carbon Dioxide Anion Gap BUN Creatinine GFR Calculation BUN/Creatinine Ratio Glucose POC Glucose 111 H 157 H Calculated Osmolality Calcium Magnesium Blood Type A POSITIVE Antibody Screen Crossmatch 11/26/16 11/26/16 11/26/16 04:17 05:18 05:18 WBC 8.1 RBC 5.18 Hgb 15.9 Hct 46.2 MCV 89.2 MCH 31 MCHC 34.4 RDW 14.7 Plt Count 459 H MPV 9.0 L Neut % (Auto) 33.9 L Lymph % (Auto) 47.3 Roberts % (Auto) 14.4 H Eos % (Auto) 3.3 Baso % (Auto) 0.7 Neut # (Auto) 2.7 Lymph # (Auto) 3.8 Roberts # (Auto) 1.2 H Eos # (Auto) 0.3 Baso # (Auto) 0.1 Total Counted 100 Immature Gran % 0.4 Nucleated RBC % 0.0 Immature Gran # 0.03 Segmented Neutrophils 25 L Band Neutrophils Lymphocytes 62 H Monocytes 12 Eosinophils 1 Nucleated RBCs Nucleated RBCs # 0.00 Platelet Estimate Adequate Hypochromasia 2+ Microcytosis 1+ ABG pH ABG pCO2 ABG pO2 ABG HCO3 ABG Total CO2 ABG O2 Saturation ABG Base Excess FiO2 Sodium 139 Potassium 4.6 Chloride 105 Carbon Dioxide 24 Anion Gap 14.6 BUN 16 Creatinine 1.00 GFR Calculation 100 BUN/Creatinine Ratio 16.00 Glucose 141 H POC Glucose 129 H Calculated Osmolality 279.5 Calcium 9.2 Magnesium 2.2 Blood Type Antibody Screen Crossmatch Quality Measures - Stroke Symptom Onset Unknown: No
[2016-11-26] MEDS ORDERED: CALCIUM CHLORIDE 1,000 MG/10 ML SYRINGE IV ONE (06:48)
[2016-11-26] MEDS ORDERED: VECURONIUM 10 MG VIAL IV ONE (06:48)
[2016-11-26] MEDS ORDERED: EPINEPHrine 1 MG/ML VIAL ONE ×2 (06:48→12:59)
[2016-11-26] MEDS ORDERED: AMINOCAPROIC ACID 5,000 MG/20 ML VIAL IV ONE (06:48)
[2016-11-26] MEDS ORDERED: CEFUROXIME 1,500 MG VIAL ONE (06:56)
[2016-11-26 08:14] LABS: ABG Base Excess -1.3 MMOL/L (-2.5-2.5); ABG HCO3 23.2 MMOL/L (20-26); ABG Oxygen Saturation 99.2 % (95-100); ABG PCO2 38.5 MM HG (35-48); ABG PH 7.398 (7.35-7.45); ABG PO2 275.8 MM HG (80-95); ABG TCO2 24.4 MMOL/L (23-27); Glucose Heart Surgery 133 MG/DL (74-106); Hemoglobin Heart Surgery 13.9 G/DL (14.0-18.0); Ionized Calcium Arterial 1.12 MMOL/L (1.21-1.46); PCO2 Patient Temp Arterial 38.5 MMHG; PH Patient Temp Arterial 7.398; PO2 Patient Temp Arterial 275.8 MM HG; Patient Temperature 37 CELCIUS; Sodium Heart/CVR 136 MMOL/L (135-145)
[2016-11-26 08:15] LABS: Apearance,Urine Slightly Hazy (Clear); Bilirubin,Urine Negative (Negative); Blood, Urine Small mg/dL (Negative); Glucose,Urine (UA) Negative (Negative); Ketones,Urine 5 mg/dL (Negative); Mucus,Urine Occasional /LPF (Occasional); Nitrite,Urine Negative (Negative); Protein,Urine Negative; RBC,Urine <1 /HPF (0-4); Squamous Epithelial Cell,Urine Occasional /HPF (0-10); Urine Color Yellow (Yellow); Urine Specific Gravity 1.014 (1.001-1.035); Urine Urobilinogen < 2.0 EU/DL (0.2-1.0); WBC,Urine <1 /HPF (0-6)
[2016-11-26 09:44] LABS: Hemoglobin Heart Surgery 10.9 G/DL (14.0-18.0); PCO2 Patient Temp Venous 32.7 MM HG; PH Patient Temp Venous 7.465; PO2 Patient Temp Venous 36.5 MM HG; Potassium Heart/CVR 4.3 MMOL/L (3.5-5.1); VBG Base Excess -0.5 MEQ/L (0-4); VBG HCO3 23.4 MEQ/L (24-28); VBG Oxygen Saturation 79.1 %; VBG PCO2 35.7 MMHG (41-51); VBG PH 7.435
[2016-11-26 10:10] LABS: Hemoglobin Heart Surgery 9.4 G/DL (14.0-18.0); PCO2 Patient Temp Venous 33.1 MM HG; PH Patient Temp Venous 7.479; PO2 Patient Temp Venous 34.1 MM HG; Potassium Heart/CVR 4.9 MMOL/L (3.5-5.1); VBG Base Excess 0.5 MEQ/L (0-4); VBG HCO3 24.7 MEQ/L (24-28); VBG Oxygen Saturation 78.6 %; VBG PCO2 37.7 MMHG (41-51); VBG PH 7.434; VBG PO2 42.1 MMHG (17-40)
[2016-11-26] MEDS ORDERED: ALBUMIN 5% 12.5 GM/250 ML VIAL IV ONE ×2 (10:35→14:20)
[2016-11-26] MEDS ORDERED: POTASSIUM CHLORIDE RIDER 100 ML IV ONE (10:35)
[2016-11-26 10:44] LABS: PCO2 Patient Temp Venous 29.6 MM HG; PH Patient Temp Venous 7.513; PO2 Patient Temp Venous 31.8 MM HG; Potassium Heart/CVR 4.6 MMOL/L (3.5-5.1); VBG Base Excess 0.3 MEQ/L (0-4); VBG HCO3 24.3 MEQ/L (24-28); VBG Oxygen Saturation 82.2 %; VBG PCO2 36.8 MMHG (41-51); VBG PH 7.438; VBG PO2 45.2 MMHG (17-40)
[2016-11-26 11:10] LABS: PCO2 Patient Temp Venous 24.7 MM HG; PH Patient Temp Venous 7.563; Potassium Heart/CVR 4.6 MMOL/L (3.5-5.1); VBG Base Excess -0.2 MEQ/L (0-4); VBG HCO3 22.9 MEQ/L (24-28); VBG PCO2 32.1 MMHG (41-51); VBG PH 7.472; VBG PO2 45.3 MMHG (17-40)
[2016-11-26 11:11] LABS: PO2 Patient Temp Venous 29.7 MM HG
[2016-11-26 12:12] LABS: ABG Base Excess -3.3 MMOL/L (-2.5-2.5); ABG HCO3 21.7 MMOL/L (20-26); ABG Oxygen Saturation 85.9 % (95-100); ABG PCO2 38.7 MM HG (35-48); ABG PH 7.367 (7.35-7.45); ABG PO2 52.9 MM HG (80-95); ABG TCO2 22.9 MMOL/L (23-27); Glucose Heart Surgery 280 MG/DL (74-106); Hemoglobin Heart Surgery 9.1 G/DL (14.0-18.0); Ionized Calcium Arterial 0.93 MMOL/L (1.21-1.46); PCO2 Patient Temp Arterial 38.7 MMHG; PH Patient Temp Arterial 7.367; PO2 Patient Temp Arterial 52.9 MM HG; Patient Temperature 37 CELCIUS; Potassium Heart/CVR 3.9 MMOL/L (3.5-5.1); Sodium Heart/CVR 134 MMOL/L (135-145)
[2016-11-26] MEDS ORDERED: DEXTROSE 5% KCL 20 MEQ 60 MEQ/3,000 ML BAG IV ONE (12:26)
[2016-11-26] MEDS ORDERED: HEPARIN 10,000 UNIT/10 ML VIAL ONE (12:26)
[2016-11-26] MEDS ORDERED: ALBUMIN 25% 25 GM/100 ML VIAL IV ONE (12:26)
[2016-11-26] MEDS ORDERED: PROTAMINE SULFATE 250 MG/25 ML VIAL IV ONE (12:26)
[2016-11-26] MEDS ORDERED: SODIUM BICARBONATE 50 MEQ/50 ML VIAL IV ONE (12:26)
[2016-11-26] MEDS ORDERED: MAGNESIUM SULFATE 1 GM/2 ML VIAL ONE (12:26)
[2016-11-26] MEDS ORDERED: PHENYLEPHRINE DRIP 20 MG/250 ML PREMIX IV ONE (12:26)
[2016-11-26 12:27] LABS: ABG Base Excess -2.9 MMOL/L (-2.5-2.5); ABG HCO3 22.6 MMOL/L (20-26); ABG Oxygen Saturation 98.1 % (95-100); ABG PCO2 42.4 MM HG (35-48); ABG PH 7.345 (7.35-7.45); ABG PO2 142.8 MM HG (80-95); ABG TCO2 23.9 MMOL/L (23-27); Glucose Heart Surgery 302 MG/DL (74-106); Hemoglobin Heart Surgery 10.5 G/DL (14.0-18.0); Ionized Calcium Arterial 1.05 MMOL/L (1.21-1.46); PCO2 Patient Temp Arterial 42.4 MMHG; PH Patient Temp Arterial 7.345; PO2 Patient Temp Arterial 142.8 MM HG; Patient Temperature 37 CELCIUS; Sodium Heart/CVR 132 MMOL/L (135-145)
[2016-11-26] MEDS ORDERED: MANNITOL 12.5 GM/50 ML VIAL IV ONE (12:27)
[2016-11-26] MEDS ORDERED: PROTAMINE SULFATE 50 MG/5 ML VIAL IV ONE (12:27)
[2016-11-26] MEDS ORDERED: methylPREDNISolone SOD SUC 1,000 MG/8 ML VIAL ONE (12:27)
[2016-11-26] MEDS ORDERED: FUROSEMIDE 20 MG/2 ML VIAL ONE (12:27)
[2016-11-26] MEDS ORDERED: PHENYLEPHRINE DRIP 40 MG/250 ML PREMIX IV ONE (13:01)
[2016-11-26] MEDS: SODIUM CHLORIDE 0.9% 1,000 ML IV SCH (13:12)
[2016-11-26] MEDS ORDERED: ACETAMINOPHEN 650 MG SUPP RECTAL PRN (13:31)
[2016-11-26] MEDS ORDERED: ALBUMIN 5% 12.5 GM in PREMIX 1 EACH IV PRN (13:31)
[2016-11-26] MEDS ORDERED: MAGNESIUM SULF RIDER 2 GM in PREMIX 1 EACH IV PRN (13:31)
[2016-11-26] MEDS ORDERED: DEXTROSE 50% 25 GM/50 ML VIAL IV PRN ×2 (13:31)
[2016-11-26] MEDS ORDERED: CHLORHEXIDINE 4% SOLN 118 ML BOTTLE TOP PRN (13:31)
[2016-11-26] MEDS ORDERED: CALCIUM CHLORIDE 1,000 MG/10 ML SYRINGE IV PRN (13:31)
[2016-11-26] MEDS ORDERED: MAGNESIUM SULF RIDER 4 GM in PREMIX 1 EACH IV PRN (13:31)
[2016-11-26] MEDS ORDERED: SODIUM CHLORIDE 0.9% 250 ML IV PRN (13:31)
[2016-11-26] MEDS ORDERED: ONDANSETRON 4 MG/2 ML VIAL IV PRN (13:31)
[2016-11-26] MEDS: SODIUM CHLORIDE 0.45% 1,000 ML IV SCH (13:50)
[2016-11-26] MEDS ORDERED: SODIUM CHLORIDE 0.45% 1,000 ML IV SCH (14:00)
[2016-11-26] MEDS: PHENYLEPHRINE DRIP 40 MG/250 ML PREMIX IV SCH (14:00)
--- NOTE | 2016-11-26 14:03 | ECHO Report ---
Garett Kam Exam Date: 11/26/2016 11:56 Referring Physician: Technologist: Solange Boudreaux LRBOYD Age: 76 Ht (in): 69 Wt (lb): 270 Gender: M Exam Location: Pre-op Dx: Post-op Dx: BP: 119 / 80 HR: 80 Rhythm: Sinus Technical Quality: Specimens Taken Devices Implanted Medications Complications Estimated Blood Loss Proc. Components IMPRESSIONS This is an intraoperative DICK to assess prosthetic aortic valve performance after AVR. Left ventricular ejection fraction is preserved and is estimated at 55- 60%. There is a newly placed bioprosthetic aortic valve which is well seated and appears to be functioning normally. There is trace mitral regurgitation. MEASUREMENTS (Male / Female) Normal Values FINDINGS Left Ventricle Normal left ventricular size, systolic function and wall thickness, with no regional wall motion abnormalities. Normal left ventricular wall thickness. Right Ventricle The right ventricle is normal in size and function. Right Atrium The right atrium is normal in size. Left Atrium The left atrium is normal in size. LA Appendage IA Septum The interatrial septum is normal. Mitral Valve Structurally normal mitral valve without significant stenosis or prolapse. There is trace mitral regurgitation. Aortic Valve Bioprosthetic aortic valve is well seated and appears to be functioning normally. Tricuspid Valve Grossly normal tricuspid valve without significant stenosis or regurgitation. Pulmonic Valve Pericardium Normal pericardium without effusion. Aorta Sam Gardner (Electronically Signed) Final Date: 26 Nov 2016 14:01
[2016-11-26 14:08] LABS: Basophils % 0.1 % (0.0-0.8); Eosinophils # 0.1 10*3/uL (0.0-0.87); Eosinophils % 0.6 % (0.00-10.9); Hematocrit 22.9 VOL% (42.0-52.0); Immature Granulocytes % 0.8 %; Immature Granulocytes Absolute 0.11 #; Lymphocytes # 1.9 10*3/uL (1.4-4.0); Mean Corpuscular HGB Conc 34.5 GM/DL (32-36); Mean Corpuscular Hemoglobin 31 PG (27-34); Mean Corpuscular Volume 90.5 FL (87-102); Mean Platelet Volume 9.4 FL (9.6-12.0); Monocytes # 1.2 10*3/uL (0.11-0.8); Neutrophils # 11.2 10*3/uL (1.4-7.4); Neutrophils % 77.5 % (38.7-73.9); Platelet Count 186 T/CUMM (130-400); Red Blood Count 2.53 MC/CUMM (3.8-5.5); Red Cell Distribution Width 14.7 % (9.3-17.3); White Blood Count 14.4 T/CUMM (4-12)
[2016-11-26 14:09] LABS: ABG Base Excess -4.1 MMOL/L (-2.5-2.5); ABG HCO3 19.9 MMOL/L (20-26); ABG PCO2 32.1 MM HG (35-48); ABG PH 7.411 (7.35-7.45); ABG PO2 99.8 MM HG (80-95); ABG TCO2 20.9 MMOL/L (23-27); Glucose Heart Surgery 316 MG/DL (74-106); Potassium Heart/CVR 3.7 MMOL/L (3.5-5.1)
[2016-11-26 14:12] LABS: Hemoglobin 7.9 GM/DL (14.0-18.0)
--- NOTE | 2016-11-26 14:15 | XRay Report ---
XR chest 1V portable Indication: Endotracheal tube/line placement Comparison: Chest x-ray dated November 22, 2016 Technique: Single frontal view of the chest. Findings: Endotracheal tube tip projects approximately 1 cm above the devon. [place] catheter noted with tip projecting over the right hilum. Mediastinal drains and left-sided chest tube noted. Status post sternotomy. Small bilateral pleural fluid suspected. Linear left suprahilar atelectasis. Mild left basilar atelectasis. Osseous structures appear grossly unchanged. IMPRESSION: Post surgical change with lines and tubes as above. PROCEDURE INTERPRETED AT [facility] DEPARTMENT OF RADIOLOGY Final Report Signed by: Dr Tahir Quinteros
--- NOTE | 2016-11-26 14:17 | Operative Note ---
Date of procedure: 11/26/16 Pre-op diagnosis: Severe aortic stenosis and severe coronary artery disease Post-op diagnosis: same Procedure: 1. [place] of left internal mammary artery 2. Institution of cardiopulmonary bypass 3. Aortic valve replacement with size 23 bioprosthetic valve 4. Coronary artery bypass graft HUERTAS LAD 5. Transesophageal echocardiogram Please add modifier for complexity for severe morbid obesity Details of the procedure: The patient was brought into the OR placed supine on the OR table and general endotracheal anesthesia was induced without any problems. Antibiotics were given. Timeout was performed. The chest and the body were prepped and draped in the usual sterile fashion. An incision in the chest was made and a sternotomy was performed. The sternum was friable. Hemostasis was achieved. I then started dissecting out the left internal mammary artery from the first rib all the way down to the xiphisternum. It was functional. Hemostasis achieved. Heparin was given. I then turned my attention and open the pericardium. Pericardial well was created. Again his cardiac muscle as well as his aortic wall more friable. I then cannulated the proximal arch of the aorta without any problems. I then proceeded with cannulating the right atrium and the IVC with a dual stage cannula. The patient was started on pump. I then proceeded with prepping the mammary. I then created pericardial rent. I inserted the cardioplegia needle. The patient was noted to have some AI. I inserted an LV vent through the right superior pulmonary vein. Cross-clamp was applied on the aorta and cardioplegia was given. The patient required extra amount of cardioplegia due to his AI. Upon cardiac arrest I did my aortotomy. And upon opening it the valve was noted to be severely diseased and calcified. Extensive debridement was done and I dissected all the leaflets with the calcified part of the annulus. This was all cleaned all the way down to a clean annular tissue. At this point I stopped and I gave cardioplegia down the coronary ostia left and right 200 cc each. I then sized the valve and 23 size was noted. I then inserted 2-0 Ethibond horizontal mattress sutures with pledgets circumferentially around the annulus. The sutures then were passed through the valvular cuff. The valve was seated down appropriately without any problems. All the sutures were tightened down using Kor-not. The arthrotomy was then closed with a running 3-0 Prolene stitch pledgeted in 2 layers. I then turned my attention to the LAD. I found the LAD to be on the lateral surface of the ventricle as the heart was completely rotated towards the left. Arteriotomy was performed and the anastomosis was created between the HUERTAS to the LAD with 7-0 Prolene.. It was tested and there was no blood problems. I then de-aired the patient and after the earring I removed the cross clamp. The heart regained sinus rhythm. Then wean the patient off bypass and during the weaning Dr. Gardner performed transesophageal echocardiogram which confirmed the valve will seated with no leak. The patient will wean well from pump. There was no air in the ventricle on echo. Again the valve was in good position with no leak. Protamine was started and hemostasis was achieved. The patient decannulated well without any problems. Ventricular pacing wires were inserted. Chest tubes were inserted. The sternum was then approximated using wires. The subcutaneous tissues closed with PDS and the skin was closed with Monocryl. All counts were correct at the end of the procedure. Patient was transferred to the ICU. Anesthesia: JONE Surgeon / Physician: Anselmo Rice Estimated blood loss: other (cpb) Tourniquet Time (Minutes): 96 Condition: critical Disposition: ICU Results - Labs CBC & BMP: 11/26/16 12:20 11/26/16 05:18 Discharge Plan - Discharge Medications No Action Krill Oil 2,500 mg PO BEDTIME Aspirin [Aspirin EC] 81 mg PO DAILY Cinnamon Bark [Cinnamon] 2,000 mg PO DAILY Minocycline [Minocin] 50 mg PO BID Clopidogrel Bisulfate [Clopidogrel] 75 mg PO DAILY Azithromycin [Azithromycin] 500 mg PO DAILY metFORMIN [Glucophage] 1,000 mg PO BID W/MEALS Cholecalciferol (Vitamin D3) [Vitamin D3] 1 capsule PO DAILY Carvedilol [Carvedilol] 25 mg PO BID - Follow Up or Referral - Forms/Instructions
[2016-11-26] MEDS ORDERED: SEVOFLURANE 1 UNIT/15 MINUTE INH ONE (14:19)
[2016-11-26] MEDS ORDERED: fentaNYL 100 MCG/2 ML VIAL ONE (14:19)
[2016-11-26] MEDS ORDERED: MIDAZOLAM 10 MG/2 ML VIAL ONE (14:20)
[2016-11-26 14:22] LABS: INR 1.4; PT Patient Result 14.8 SECS; Partial Thromboplastin Time 33.1 SECS (0-40)
[2016-11-26 14:22] LABS: Calcium 7.5 MG/DL (8.5-10.1); Magnesium 2.1 MG/DL (1.8-2.4); Osmolality,Calculated 295.1 MOS/KG (273-304); Potassium 3.8 MMOL/L (3.5-5.1)
[2016-11-26 14:27] LABS: Lactic Acid 3.5 MMOL/L (0.4-2.0)
[2016-11-26] MEDS: POTASSIUM CHLORIDE RIDER 20 MEQ in PREMIX 1 EACH IV PRN ×2 (15:00→19:07)
--- NOTE | 2016-11-26 15:02 | EKG Report ---
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
--- NOTE | 2016-11-26 15:19 | Anesthesia Post-Op ---
Anesthesia Post OP - Post Ansesthetic Evaluation Patient seen in post op: Yes Resp: within normal limits (vent) CV: within normal limits Mental: within normal limits Temp: within normal limits [id number]: within normal limits Nausea and Vomiting: within normal limits Pain: within normal limits
[2016-11-26] MEDS: INSULIN REGULAR DRIP 100 ML IV SCH ×2 (15:43→23:17)
--- NOTE | 2016-11-26 15:49 | XRay Report ---
XR chest 1V portable Indication: ET tube adjustment. Chest one view: Since 1350 hours, endotracheal tube has been withdrawn slightly now terminating 2 cm cephalad of the devon. The remainder of the exam is unchanged. Impression: Slightly withdrawn endotracheal tube. PROCEDURE INTERPRETED AT [facility] DEPARTMENT OF RADIOLOGY Final Report Signed by: Adi Cannon M.D.
--- NOTE | 2016-11-26 15:51 | XRay Report ---
XR chest 1V portable Indication: NG tube placement. Chest/abdomen one view: 2 mediastinal drains are in the [id number], but no nasogastric tube is identified along the anticipated course of the esophagus or stomach. Impression: No NG tube identified. PROCEDURE INTERPRETED AT [facility] DEPARTMENT OF RADIOLOGY Final Report Signed by: Adi Cannon M.D.
[2016-11-26] MEDS: POTASSIUM CHLORIDE RIDER 10 MEQ in PREMIX 1 EACH IV PRN ×2 (16:21→21:41)
[2016-11-26 17:50] LABS: ABG Base Excess -2.6 MMOL/L (-2.5-2.5); ABG Oxygen Saturation 97.7 % (95-100); ABG PCO2 37.2 MM HG (35-48); ABG PO2 102.2 MM HG (80-95); ABG TCO2 23.2 MMOL/L (23-27); Glucose Heart Surgery 250 MG/DL (74-106); Potassium Heart/CVR 3.8 MMOL/L (3.5-5.1)
[2016-11-26] MEDS: MORPHINE 2 MG/1 ML SYRINGE IV PRN (19:38)
[2016-11-26] MEDS: INSULIN REGULAR 100 UNIT/ML IV PRN ×2 (20:02→22:01)
[2016-11-26] MEDS: MORPHINE 10 MG/1 ML VIAL IV PRN ×2 (20:04→22:24)
[2016-11-26] MEDS: CHLORHEXIDINE 0.12% ORAL RINSE 60 ML BOTTLE SWISH/SPIT SCH (20:20)
[2016-11-26] MEDS: CEFUROXIME INJ 1,500 MG in SODIUM CHLORIDE 0.9% 100 ML IV SCH (20:40)
[2016-11-26 20:54] LABS: ABG Base Excess -2.7 MMOL/L (-2.5-2.5); ABG HCO3 21.4 MMOL/L (20-26); ABG Oxygen Saturation 96.4 % (95-100); ABG PCO2 34.6 MM HG (35-48); ABG PO2 87.2 MM HG (80-95); ABG TCO2 22.5 MMOL/L (23-27); Glucose Heart Surgery 191 MG/DL (74-106); Hemoglobin Heart Surgery 10.2 G/DL (14.0-18.0)
[2016-11-27] MEDS: MORPHINE 2 MG/1 ML SYRINGE IV PRN ×4 (03:25→20:34)
[2016-11-27 03:50] LABS: ABG Base Excess -1.7 MMOL/L (-2.5-2.5); ABG HCO3 22.2 MMOL/L (20-26); ABG Oxygen Saturation 94.1 % (95-100); ABG PCO2 34.6 MM HG (35-48); ABG PH 7.426 (7.35-7.45); ABG PO2 69.5 MM HG (80-95); ABG TCO2 23.3 MMOL/L (23-27); Glucose Heart Surgery 79 MG/DL (74-106); Potassium Heart/CVR 3.4 MMOL/L (3.5-5.1)
[2016-11-27 03:56] LABS: Basophils % 0.1 % (0.0-0.8); Hematocrit 28.5 VOL% (42.0-52.0); Hemoglobin 9.8 GM/DL (14.0-18.0); Immature Granulocytes % 0.4 %; Immature Granulocytes Absolute 0.05 #; Lymphocytes # 1.1 10*3/uL (1.4-4.0); Lymphocytes % 8.1 % (21.2-54.2); Mean Corpuscular HGB Conc 34.4 GM/DL (32-36); Mean Corpuscular Hemoglobin 30 PG (27-34); Mean Corpuscular Volume 87.7 FL (87-102); Mean Platelet Volume 9.9 FL (9.6-12.0); Monocytes # 0.9 10*3/uL (0.11-0.8); Monocytes % 6.8 % (1.7-12.7); Neutrophils # 11.5 10*3/uL (1.4-7.4); Neutrophils % 84.6 % (38.7-73.9); Platelet Count 256 T/CUMM (130-400); Red Blood Count 3.25 MC/CUMM (3.8-5.5); Red Cell Distribution Width 15.8 % (9.3-17.3); White Blood Count 13.6 T/CUMM (4-12)
[2016-11-27] MEDS: POTASSIUM CHLORIDE RIDER 20 MEQ in PREMIX 1 EACH IV PRN ×3 (04:05→07:43)
[2016-11-27 04:19] LABS: Calcium 7.2 MG/DL (8.5-10.1); Magnesium 1.8 MG/DL (1.8-2.4); Osmolality,Calculated 278.3 MOS/KG (273-304); Potassium 3.8 MMOL/L (3.5-5.1)
[2016-11-27] MEDS: MIDAZOLAM 2 MG/2 ML VIAL IV PRN ×3 (04:25→05:43)
[2016-11-27] MEDS: SODIUM CHLORIDE 0.45% 1,000 ML IV SCH (04:31)
--- NOTE | 2016-11-27 06:05 | XRay Report ---
XR chest 1V portable Indication: Evaluate for pneumothorax. Comparison: Chest x-ray 11/26/2016. Technique: Portable AP chest was performed. Findings: Opacification left cardiophrenic angle and left lung base has worsened suggesting worsening atelectasis. Multiple tubes and medical support devices appear stable. Little change in the chest is otherwise demonstrated. Impression: 1. Worsening atelectasis left lung base is suggested. 11/27/2016 6:01 AM PROCEDURE INTERPRETED AT [facility] DEPARTMENT OF RADIOLOGY Final Report Signed by: Dr. Roberto Carlos Baker
[2016-11-27] MEDS: MORPHINE 10 MG/1 ML VIAL IV PRN (06:30)
[2016-11-27 06:44] LABS: ABG Base Excess -2.2 MMOL/L (-2.5-2.5); ABG Oxygen Saturation 96.5 % (95-100); ABG PCO2 35.3 MM HG (35-48); ABG PH 7.413 (7.35-7.45); ABG PO2 90.2 MM HG (80-95); ABG TCO2 23.1 MMOL/L (23-27); Glucose Heart Surgery 86 MG/DL (74-106); Hemoglobin Heart Surgery 9.6 G/DL (14.0-18.0); Potassium Heart/CVR 3.9 MMOL/L (3.5-5.1)
[2016-11-27] MEDS: DEXMEDETOMIDINE 200 MCG in SODIUM CHLORIDE 0.9% 48 ML IV SCH (07:36)
[2016-11-27] MEDS ORDERED: FUROSEMIDE 40 MG/4 ML VIAL IV ONE (08:17)
[2016-11-27 08:18] LABS: ABG Base Excess -0.5 MMOL/L (-2.5-2.5); ABG HCO3 23.8 MMOL/L (20-26); ABG Oxygen Saturation 90.8 % (95-100); ABG PCO2 37.7 MM HG (35-48); ABG PH 7.418 (7.35-7.45); Glucose Heart Surgery 101 MG/DL (74-106); Hemoglobin Heart Surgery 9.5 G/DL (14.0-18.0)
[2016-11-27] MEDS: POTASSIUM CHLORIDE RIDER 10 MEQ in PREMIX 1 EACH IV PRN (08:32)
[2016-11-27] MEDS ORDERED: HEPARIN/NACL 0.9% 2 UNITS/ML 500 ML IV ONE (09:19)
[2016-11-27] MEDS: ALBUTEROL/IPRATROPIUM 3 ML NEB RESP TX SCH ×4 (09:25→23:51)
[2016-11-27] MEDS ORDERED: ALBUMIN 5% 25 GM in PREMIX 1 EACH IV ONE (09:41)
[2016-11-27] MEDS: CHLORHEXIDINE 0.12% ORAL RINSE 60 ML BOTTLE SWISH/SPIT SCH ×2 (09:56→21:34)
--- NOTE | 2016-11-27 10:07 | Cardiology Progress Note ---
Assessment and Plan (1) Obesity Status: Chronic Current Visit: Yes (2) Coronary arteriosclerosis Status: Chronic Assessment and plan: POD #1 S/P ANT-LAD Current Visit: Yes (3) Aortic stenosis, severe Status: Chronic Assessment and plan: POD #1 s/p 23 mm bioprosthetic AVR Current Visit: Yes (4) Hypertension Status: Chronic Current Visit: Yes (5) JORDAN (obstructive sleep apnea) Status: Chronic Current Visit: Yes (6) Diabetes Status: Chronic Current Visit: Yes Qualifiers: Diabetes mellitus type: type 2 Diabetes mellitus complication status: with unspecified complications (7) Dyslipidemia Status: Chronic Current Visit: Yes Cardiology - PN: Subj Interval history: I saw Mr. Kam with Dr. Rice at the bedside. He just received Precedex. He has had some hypertension but is doing well. The patient is sedated. No cardiac dysrhythmias. He is postop day 1 status post coronary bypass grafting and AVR. Patient had a HUERTAS to the LAD in 23 mm bioprosthesis. Exam (Progress Note) - Constitutional Vitals: Period Temp Pulse Resp BP Sys/Brock Pulse Ox Last 24 Hr 95.0 F-99.9 F 77-99 10-24 93-165/33-84 91-100 General appearance: morbidly obese - Head Head exam: Present: normal inspection - Eye Eye exam: Present: EOMI Pupils: Present: [place] - ENT ENT exam: Present: normal exam - Neck Neck exam: Present: normal inspection - Respiratory Respiratory exam: Present: clear to auscultation bilaterally - Cardiovascular Cardiovascular exam: Present: regular rate and rhythm - GI/Abdominal GI/Abdominal exam: Present: normal bowel sounds - Extremities Exam Extremities exam: Present: normal inspection - Back Exam Back exam: Present: normal inspection - Neurological Exam Neurological exam: Present: alert, oriented X3 - Psychiatric Psychiatric exam: Present: other (sedated) - Skin Skin exam: Present: normal color, warm, dry Result/EKG - Labs CBC & BMP: 11/27/16 03:45 11/27/16 03:45 Labs: Laboratory Results - last 24 hr 11/25/16 11/26/16 11/26/16 05:44 10:09 10:35 WBC RBC Hgb Hct MCV MCH MCHC RDW Plt Count MPV Neut % (Auto) Lymph % (Auto) [place] % (Auto) Eos % (Auto) Baso % (Auto) Neut # (Auto) Lymph # (Auto) [place] # (Auto) Eos # (Auto) Baso # (Auto) Immature Gran % Nucleated RBC % Immature Gran # Nucleated RBCs # INR PT Patient/Control Mix Circ Anticoag PTT Patient Temperature 34 32 ABG pH ABG pH at Pt Temp 7.479 7.513 ABG pCO2 ABG pCO2 at Pt Temp 33.1 29.6 ABG pO2 ABG pO2 at Pt Temp 34.1 31.8 ABG HCO3 ABG Total CO2 ABG O2 Saturation ABG Base Excess ABG Sodium 127 L 129 L VBG pH 7.434 7.438 VBG pCO2 37.7 L 36.8 L VBG pO2 42.1 H 45.2 H VBG HCO3 24.7 24.3 VBG Total CO2 25.8 25.5 VBG O2 Saturation 78.6 82.2 VBG Base Excess 0.5 0.3 Hemoglobin 9.4 L 11.0 L Hematocrit 28.0 L 32.0 L Potassium 4.9 4.6 Glucose 421 H 383 H Ionized Calcium FiO2 80.00 80.00 Sodium Chloride Carbon Dioxide Anion Gap BUN Creatinine GFR Calculation BUN/Creatinine Ratio POC Glucose Calculated Osmolality Lactic Acid Calcium Venous Ioniz Calcium 0.92 0.96 Magnesium Blood Type A POSITIVE Antibody Screen Negative Crossmatch See Detail 11/26/16 11/26/16 11/26/16 11:10 11:53 12:03 WBC RBC Hgb Hct MCV MCH MCHC RDW Plt Count 91 L D MPV Neut % (Auto) Lymph % (Auto) [place] % (Auto) Eos % (Auto) Baso % (Auto) Neut # (Auto) Lymph # (Auto) [place] # (Auto) Eos # (Auto) Baso # (Auto) Immature Gran % Nucleated RBC % Immature Gran # Nucleated RBCs # INR PT Patient/Control Mix Circ Anticoag PTT Patient Temperature 31 37 ABG pH 7.367 ABG pH at Pt Temp 7.563 7.367 ABG pCO2 38.7 ABG pCO2 at Pt Temp 24.7 38.7 ABG pO2 52.9 L ABG pO2 at Pt Temp 29.7 52.9 ABG HCO3 21.7 ABG Total CO2 22.9 L ABG O2 Saturation 85.9 L ABG Base Excess -3.3 L ABG Sodium 130 L 134 L VBG pH 7.472 VBG pCO2 32.1 L VBG pO2 45.3 H VBG HCO3 22.9 L VBG Total CO2 23.9 VBG O2 Saturation 84.0 VBG Base Excess -0.2 L Hemoglobin 10.0 L 9.1 L Hematocrit 29.0 L 27.0 L Potassium 4.6 3.9 Glucose 324 H 280 H Ionized Calcium 0.93 L FiO2 80.00 Sodium Chloride Carbon Dioxide Anion Gap BUN Creatinine GFR Calculation BUN/Creatinine Ratio POC Glucose Calculated Osmolality Lactic Acid Calcium Venous Ioniz Calcium 0.83 Magnesium Blood Type Antibody Screen Crossmatch 11/26/16 11/26/16 11/26/16 12:20 12:20 13:31 WBC RBC Hgb Hct MCV MCH MCHC RDW Plt Count 139 D MPV Neut % (Auto) Lymph % (Auto) [place] % (Auto) Eos % (Auto) Baso % (Auto) Neut # (Auto) Lymph # (Auto) [place] # (Auto) Eos # (Auto) Baso # (Auto) Immature Gran % Nucleated RBC % Immature Gran # Nucleated RBCs # INR PT Patient/Control Mix Circ Anticoag PTT Patient Temperature 37 ABG pH 7.345 L 7.411 ABG pH at Pt Temp 7.345 ABG pCO2 42.4 32.1 L ABG pCO2 at Pt Temp 42.4 ABG pO2 142.8 H 99.8 H ABG pO2 at Pt Temp 142.8 ABG HCO3 22.6 19.9 L ABG Total CO2 23.9 20.9 L ABG O2 Saturation 98.1 97.0 ABG Base Excess -2.9 L -4.1 L ABG Sodium 132 L VBG pH VBG pCO2 VBG pO2 VBG HCO3 VBG Total CO2 VBG O2 Saturation VBG Base Excess Hemoglobin 10.5 L 9.0 L Hematocrit 31.0 L 26.0 L Potassium 4.0 3.7 Glucose 302 H 316 H Ionized Calcium 1.05 L FiO2 Sodium Chloride Carbon Dioxide Anion Gap BUN Creatinine GFR Calculation BUN/Creatinine Ratio POC Glucose Calculated Osmolality Lactic Acid Calcium Venous Ioniz Calcium Magnesium Blood Type Antibody Screen Crossmatch 11/26/16 11/26/16 11/26/16 14:00 14:06 14:06 WBC 14.4 H D RBC 2.53 L D Hgb 7.9 L D Hct 22.9 L MCV 90.5 MCH 31 MCHC 34.5 RDW 14.7 Plt Count 186 D MPV 9.4 L Neut % (Auto) 77.5 H Lymph % (Auto) 13.0 L [place] % (Auto) 8.0 Eos % (Auto) 0.6 Baso % (Auto) 0.1 Neut # (Auto) 11.2 H Lymph # (Auto) 1.9 [place] # (Auto) 1.2 H Eos # (Auto) 0.1 Baso # (Auto) 0.0 Immature Gran % 0.8 Nucleated RBC % 0.0 Immature Gran # 0.11 Nucleated RBCs # 0.00 INR 1.4 PT Patient/Control Mix 14.8 Circ Anticoag PTT 33.1 Patient Temperature ABG pH ABG pH at Pt Temp ABG pCO2 ABG pCO2 at Pt Temp ABG pO2 ABG pO2 at Pt Temp ABG HCO3 ABG Total CO2 ABG O2 Saturation ABG Base Excess ABG Sodium VBG pH VBG pCO2 VBG pO2 VBG HCO3 VBG Total CO2 VBG O2 Saturation VBG Base Excess Hemoglobin Hematocrit Potassium 3.8 Glucose 328 H Ionized Calcium FiO2 Sodium 142 Chloride 106 Carbon Dioxide 21 Anion Gap 18.8 H BUN 12 Creatinine 0.90 GFR Calculation 113 BUN/Creatinine Ratio 13.00 POC Glucose Calculated Osmolality 295.1 Lactic Acid 3.5 H Calcium 7.5 L Venous Ioniz Calcium Magnesium 2.1 Blood Type Antibody Screen Crossmatch 11/26/16 11/26/16 11/26/16 16:19 17:43 17:45 WBC RBC Hgb Hct MCV MCH MCHC RDW Plt Count MPV Neut % (Auto) Lymph % (Auto) [place] % (Auto) Eos % (Auto) Baso % (Auto) Neut # (Auto) Lymph # (Auto) [place] # (Auto) Eos # (Auto) Baso # (Auto) Immature Gran % Nucleated RBC % Immature Gran # Nucleated RBCs # INR PT Patient/Control Mix Circ Anticoag PTT Patient Temperature ABG pH 7.390 ABG pH at Pt Temp ABG pCO2 37.2 ABG pCO2 at Pt Temp ABG pO2 102.2 H ABG pO2 at Pt Temp ABG HCO3 22.0 ABG Total CO2 23.2 ABG O2 Saturation 97.7 ABG Base Excess -2.6 L ABG Sodium VBG pH VBG pCO2 VBG pO2 VBG HCO3 VBG Total CO2 VBG O2 Saturation VBG Base Excess Hemoglobin 8.0 L Hematocrit 24.0 L Potassium 3.8 Glucose 250 H Ionized Calcium FiO2 Sodium Chloride Carbon Dioxide Anion Gap BUN Creatinine GFR Calculation BUN/Creatinine Ratio POC Glucose 329 H 225 H Calculated Osmolality Lactic Acid Calcium Venous Ioniz Calcium Magnesium Blood Type Antibody Screen Crossmatch 11/26/16 11/26/16 11/26/16 18:38 19:14 19:58 WBC RBC Hgb Hct MCV MCH MCHC RDW Plt Count MPV Neut % (Auto) Lymph % (Auto) [place] % (Auto) Eos % (Auto) Baso % (Auto) Neut # (Auto) Lymph # (Auto) [place] # (Auto) Eos # (Auto) Baso # (Auto) Immature Gran % Nucleated RBC % Immature Gran # Nucleated RBCs # INR PT Patient/Control Mix Circ Anticoag PTT Patient Temperature ABG pH ABG pH at Pt Temp ABG pCO2 ABG pCO2 at Pt Temp ABG pO2 ABG pO2 at Pt Temp ABG HCO3 ABG Total CO2 ABG O2 Saturation ABG Base Excess ABG Sodium VBG pH VBG pCO2 VBG pO2 VBG HCO3 VBG Total CO2 VBG O2 Saturation VBG Base Excess Hemoglobin Hematocrit Potassium Glucose Ionized Calcium FiO2 Sodium Chloride Carbon Dioxide Anion Gap BUN Creatinine GFR Calculation BUN/Creatinine Ratio POC Glucose 252 H 276 H 252 H Calculated Osmolality Lactic Acid Calcium Venous Ioniz Calcium Magnesium Blood Type Antibody Screen Crossmatch 11/26/16 11/26/16 11/26/16 20:47 20:58 21:57 WBC RBC Hgb Hct MCV MCH MCHC RDW Plt Count MPV Neut % (Auto) Lymph % (Auto) [place] % (Auto) Eos % (Auto) Baso % (Auto) Neut # (Auto) Lymph # (Auto) [place] # (Auto) Eos # (Auto) Baso # (Auto) Immature Gran % Nucleated RBC % Immature Gran # Nucleated RBCs # INR PT Patient/Control Mix Circ Anticoag PTT Patient Temperature ABG pH 7.410 ABG pH at Pt Temp ABG pCO2 34.6 L ABG pCO2 at Pt Temp ABG pO2 87.2 ABG pO2 at Pt Temp ABG HCO3 21.4 ABG Total CO2 22.5 L ABG O2 Saturation 96.4 ABG Base Excess -2.7 L ABG Sodium VBG pH VBG pCO2 VBG pO2 VBG HCO3 VBG Total CO2 VBG O2 Saturation VBG Base Excess Hemoglobin 10.2 L D Hematocrit 30.0 L Potassium 4.0 Glucose 191 H Ionized Calcium FiO2 Sodium Chloride Carbon Dioxide Anion Gap BUN Creatinine GFR Calculation BUN/Creatinine Ratio POC Glucose 213 H 217 H Calculated Osmolality Lactic Acid Calcium Venous Ioniz Calcium Magnesium Blood Type Antibody Screen Crossmatch 11/26/16 11/26/16 11/27/16 23:05 23:51 00:55 WBC RBC Hgb Hct MCV MCH MCHC RDW Plt Count MPV Neut % (Auto) Lymph % (Auto) [place] % (Auto) Eos % (Auto) Baso % (Auto) Neut # (Auto) Lymph # (Auto) [place] # (Auto) Eos # (Auto) Baso # (Auto) Immature Gran % Nucleated RBC % Immature Gran # Nucleated RBCs # INR PT Patient/Control Mix Circ Anticoag PTT Patient Temperature ABG pH ABG pH at Pt Temp ABG pCO2 ABG pCO2 at Pt Temp ABG pO2 ABG pO2 at Pt Temp ABG HCO3 ABG Total CO2 ABG O2 Saturation ABG Base Excess ABG Sodium VBG pH VBG pCO2 VBG pO2 VBG HCO3 VBG Total CO2 VBG O2 Saturation VBG Base Excess Hemoglobin Hematocrit Potassium Glucose Ionized Calcium FiO2 Sodium Chloride Carbon Dioxide Anion Gap BUN Creatinine GFR Calculation BUN/Creatinine Ratio POC Glucose 184 H 160 H 136 H Calculated Osmolality Lactic Acid Calcium Venous Ioniz Calcium Magnesium Blood Type Antibody Screen Crossmatch 11/27/16 11/27/16 11/27/16 01:49 02:59 03:45 WBC 13.6 H RBC 3.25 L D Hgb 9.8 L D Hct 28.5 L MCV 87.7 MCH 30 MCHC 34.4 RDW 15.8 Plt Count 256 D MPV 9.9 Neut % (Auto) 84.6 H Lymph % (Auto) 8.1 L [place] % (Auto) 6.8 Eos % (Auto) 0.0 Baso % (Auto) 0.1 Neut # (Auto) 11.5 H Lymph # (Auto) 1.1 L [place] # (Auto) 0.9 H Eos # (Auto) 0.0 Baso # (Auto) 0.0 Immature Gran % 0.4 Nucleated RBC % 0.0 Immature Gran # 0.05 Nucleated RBCs # 0.00 INR PT Patient/Control Mix Circ Anticoag PTT Patient Temperature ABG pH ABG pH at Pt Temp ABG pCO2 ABG pCO2 at Pt Temp ABG pO2 ABG pO2 at Pt Temp ABG HCO3 ABG Total CO2 ABG O2 Saturation ABG Base Excess ABG Sodium VBG pH VBG pCO2 VBG pO2 VBG HCO3 VBG Total CO2 VBG O2 Saturation VBG Base Excess Hemoglobin Hematocrit Potassium Glucose Ionized Calcium FiO2 Sodium Chloride Carbon Dioxide Anion Gap BUN Creatinine GFR Calculation BUN/Creatinine Ratio POC Glucose 118 H 96 Calculated Osmolality Lactic Acid Calcium Venous Ioniz Calcium Magnesium Blood Type Antibody Screen Crossmatch 11/27/16 11/27/16 11/27/16 03:45 03:45 03:55 WBC RBC Hgb Hct MCV MCH MCHC RDW Plt Count MPV Neut % (Auto) Lymph % (Auto) [place] % (Auto) Eos % (Auto) Baso % (Auto) Neut # (Auto) Lymph # (Auto) [place] # (Auto) Eos # (Auto) Baso # (Auto) Immature Gran % Nucleated RBC % Immature Gran # Nucleated RBCs # INR PT Patient/Control Mix Circ Anticoag PTT Patient Temperature ABG pH 7.426 ABG pH at Pt Temp ABG pCO2 34.6 L ABG pCO2 at Pt Temp ABG pO2 69.5 L ABG pO2 at Pt Temp ABG HCO3 22.2 ABG Total CO2 23.3 ABG O2 Saturation 94.1 L ABG Base Excess -1.7 ABG Sodium VBG pH VBG pCO2 VBG pO2 VBG HCO3 VBG Total CO2 VBG O2 Saturation VBG Base Excess Hemoglobin 10.0 L Hematocrit 29.0 L Potassium 3.8 3.4 L Glucose 80 79 Ionized Calcium FiO2 Sodium 141 Chloride 110 H Carbon Dioxide 23 Anion Gap 11.8 BUN 11 Creatinine 0.80 GFR Calculation 119 BUN/Creatinine Ratio 13.00 POC Glucose 88 Calculated Osmolality 278.3 Lactic Acid Calcium 7.2 L Venous Ioniz Calcium Magnesium 1.8 Blood Type Antibody Screen Crossmatch 11/27/16 11/27/16 06:40 08:00 WBC RBC Hgb Hct MCV MCH MCHC RDW Plt Count MPV Neut % (Auto) Lymph % (Auto) [place] % (Auto) Eos % (Auto) Baso % (Auto) Neut # (Auto) Lymph # (Auto) [place] # (Auto) Eos # (Auto) Baso # (Auto) Immature Gran % Nucleated RBC % Immature Gran # Nucleated RBCs # INR PT Patient/Control Mix Circ Anticoag PTT Patient Temperature ABG pH 7.413 7.418 ABG pH at Pt Temp ABG pCO2 35.3 37.7 ABG pCO2 at Pt Temp ABG pO2 90.2 61.0 L ABG pO2 at Pt Temp ABG HCO3 22.0 23.8 ABG Total CO2 23.1 25.0 ABG O2 Saturation 96.5 90.8 L ABG Base Excess -2.2 -0.5 ABG Sodium VBG pH VBG pCO2 VBG pO2 VBG HCO3 VBG Total CO2 VBG O2 Saturation VBG Base Excess Hemoglobin 9.6 L 9.5 L Hematocrit 28.0 L 28.0 L Potassium 3.9 4.0 Glucose 86 101 Ionized Calcium FiO2 Sodium Chloride Carbon Dioxide Anion Gap BUN Creatinine GFR Calculation BUN/Creatinine Ratio POC Glucose Calculated Osmolality Lactic Acid Calcium Venous Ioniz Calcium Magnesium Blood Type Antibody Screen Crossmatch Quality Measures - VTE Contraindication to Pharmacological VTE Prophylaxis: Active Bleeding - Stroke Symptom Onset Unknown: No
[2016-11-27] MEDS: CEFUROXIME INJ 1,500 MG in SODIUM CHLORIDE 0.9% 100 ML IV SCH ×2 (10:57→21:34)
[2016-11-27] MEDS ORDERED: METOPROLOL TARTRATE 5 MG/5 ML VIAL IV ONE (12:04)
[2016-11-27] MEDS ORDERED: LABETALOL 20 MG/4 ML SYRINGE IV ONE ×3 (12:07→13:16)
[2016-11-27 12:54] LABS: ABG Base Excess -4.3 MMOL/L (-2.5-2.5); ABG Oxygen Saturation 95.5 % (95-100); ABG PCO2 33.4 MM HG (35-48); ABG PH 7.396 (7.35-7.45); ABG PO2 82.8 MM HG (80-95); ABG TCO2 21.1 MMOL/L (23-27); Glucose Heart Surgery 156 MG/DL (74-106); Hemoglobin Heart Surgery 8.7 G/DL (14.0-18.0); Potassium Heart/CVR 3.8 MMOL/L (3.5-5.1)
[2016-11-27] MEDS ORDERED: HALOPERIDOL 5 MG/ML AMP ONE (13:15)
[2016-11-27] MEDS ORDERED: HALOPERIDOL 5 MG/ML AMP IV ONE (13:15)
[2016-11-27] MEDS: FUROSEMIDE 40 MG TABLET PO SCH (13:34)
[2016-11-27] MEDS: ASPIRIN EC 325 MG TABLET PO SCH (13:34)
[2016-11-27] MEDS: ATORVASTATIN 40 MG TABLET PO SCH ×2 (13:34→21:32)
[2016-11-27 15:47] LABS: ABG Base Excess -2.3 MMOL/L (-2.5-2.5); ABG HCO3 21.9 MMOL/L (20-26); ABG Oxygen Saturation 97.4 % (95-100); ABG PCO2 35.4 MM HG (35-48); ABG PO2 106.6 MM HG (80-95); Glucose Heart Surgery 164 MG/DL (74-106); Hemoglobin Heart Surgery 8.9 G/DL (14.0-18.0); Potassium Heart/CVR 3.6 MMOL/L (3.5-5.1)
--- NOTE | 2016-11-27 16:18 | Cardiothoracic Progress Note ---
Assessment and Plan (1) Coronary arteriosclerosis Status: Chronic Assessment and plan: Postoperative day 1 status post CABG AVR. The patient was extubated and doing well. He is slightly confused likely related to sedation. Chest tube output is minimal. It was taken off suction. He was started on aspirin, Plavix, statin. We will keep him in the ICU for observation today due to his confusion. Current Visit: Yes Exam (Progress Note) - Constitutional Vitals: Period Temp Pulse Resp BP Sys/Brock Pulse Ox Last 24 Hr 97.1 F-99.9 F 66-99 10-24 68-175/43-89 90-100 Result/EKG - Labs CBC & BMP: 11/27/16 03:45 11/27/16 03:45 Labs: Laboratory Results - last 24 hr 11/25/16 11/26/16 11/26/16 05:44 16:19 17:43 WBC RBC Hgb Hct MCV MCH MCHC RDW Plt Count MPV Neut % (Auto) Lymph % (Auto) [place] % (Auto) Eos % (Auto) Baso % (Auto) Neut # (Auto) Lymph # (Auto) [place] # (Auto) Eos # (Auto) Baso # (Auto) Immature Gran % Nucleated RBC % Immature Gran # Nucleated RBCs # ABG pH ABG pCO2 ABG pO2 ABG HCO3 ABG Total CO2 ABG O2 Saturation ABG Base Excess Hemoglobin Hematocrit Potassium Glucose Sodium Chloride Carbon Dioxide Anion Gap BUN Creatinine GFR Calculation BUN/Creatinine Ratio POC Glucose 329 H 225 H Calculated Osmolality Calcium Magnesium Blood Type A POSITIVE Antibody Screen Negative Crossmatch See Detail 11/26/16 11/26/16 11/26/16 17:45 18:38 19:14 WBC RBC Hgb Hct MCV MCH MCHC RDW Plt Count MPV Neut % (Auto) Lymph % (Auto) [place] % (Auto) Eos % (Auto) Baso % (Auto) Neut # (Auto) Lymph # (Auto) [place] # (Auto) Eos # (Auto) Baso # (Auto) Immature Gran % Nucleated RBC % Immature Gran # Nucleated RBCs # ABG pH 7.390 ABG pCO2 37.2 ABG pO2 102.2 H ABG HCO3 22.0 ABG Total CO2 23.2 ABG O2 Saturation 97.7 ABG Base Excess -2.6 L Hemoglobin 8.0 L Hematocrit 24.0 L Potassium 3.8 Glucose 250 H Sodium Chloride Carbon Dioxide Anion Gap BUN Creatinine GFR Calculation BUN/Creatinine Ratio POC Glucose 252 H 276 H Calculated Osmolality Calcium Magnesium Blood Type Antibody Screen Crossmatch 11/26/16 11/26/16 11/26/16 19:58 20:47 20:58 WBC RBC Hgb Hct MCV MCH MCHC RDW Plt Count MPV Neut % (Auto) Lymph % (Auto) [place] % (Auto) Eos % (Auto) Baso % (Auto) Neut # (Auto) Lymph # (Auto) [place] # (Auto) Eos # (Auto) Baso # (Auto) Immature Gran % Nucleated RBC % Immature Gran # Nucleated RBCs # ABG pH 7.410 ABG pCO2 34.6 L ABG pO2 87.2 ABG HCO3 21.4 ABG Total CO2 22.5 L ABG O2 Saturation 96.4 ABG Base Excess -2.7 L Hemoglobin 10.2 L D Hematocrit 30.0 L Potassium 4.0 Glucose 191 H Sodium Chloride Carbon Dioxide Anion Gap BUN Creatinine GFR Calculation BUN/Creatinine Ratio POC Glucose 252 H 213 H Calculated Osmolality Calcium Magnesium Blood Type Antibody Screen Crossmatch 11/26/16 11/26/16 11/26/16 21:57 23:05 23:51 WBC RBC Hgb Hct MCV MCH MCHC RDW Plt Count MPV Neut % (Auto) Lymph % (Auto) [place] % (Auto) Eos % (Auto) Baso % (Auto) Neut # (Auto) Lymph # (Auto) [place] # (Auto) Eos # (Auto) Baso # (Auto) Immature Gran % Nucleated RBC % Immature Gran # Nucleated RBCs # ABG pH ABG pCO2 ABG pO2 ABG HCO3 ABG Total CO2 ABG O2 Saturation ABG Base Excess Hemoglobin Hematocrit Potassium Glucose Sodium Chloride Carbon Dioxide Anion Gap BUN Creatinine GFR Calculation BUN/Creatinine Ratio POC Glucose 217 H 184 H 160 H Calculated Osmolality Calcium Magnesium Blood Type Antibody Screen Crossmatch 11/27/16 11/27/16 11/27/16 00:55 01:49 02:59 WBC RBC Hgb Hct MCV MCH MCHC RDW Plt Count MPV Neut % (Auto) Lymph % (Auto) [place] % (Auto) Eos % (Auto) Baso % (Auto) Neut # (Auto) Lymph # (Auto) [place] # (Auto) Eos # (Auto) Baso # (Auto) Immature Gran % Nucleated RBC % Immature Gran # Nucleated RBCs # ABG pH ABG pCO2 ABG pO2 ABG HCO3 ABG Total CO2 ABG O2 Saturation ABG Base Excess Hemoglobin Hematocrit Potassium Glucose Sodium Chloride Carbon Dioxide Anion Gap BUN Creatinine GFR Calculation BUN/Creatinine Ratio POC Glucose 136 H 118 H 96 Calculated Osmolality Calcium Magnesium Blood Type Antibody Screen Crossmatch 11/27/16 11/27/16 11/27/16 03:45 03:45 03:45 WBC 13.6 H RBC 3.25 L D Hgb 9.8 L D Hct 28.5 L MCV 87.7 MCH 30 MCHC 34.4 RDW 15.8 Plt Count 256 D MPV 9.9 Neut % (Auto) 84.6 H Lymph % (Auto) 8.1 L [place] % (Auto) 6.8 Eos % (Auto) 0.0 Baso % (Auto) 0.1 Neut # (Auto) 11.5 H Lymph # (Auto) 1.1 L [place] # (Auto) 0.9 H Eos # (Auto) 0.0 Baso # (Auto) 0.0 Immature Gran % 0.4 Nucleated RBC % 0.0 Immature Gran # 0.05 Nucleated RBCs # 0.00 ABG pH 7.426 ABG pCO2 34.6 L ABG pO2 69.5 L ABG HCO3 22.2 ABG Total CO2 23.3 ABG O2 Saturation 94.1 L ABG Base Excess -1.7 Hemoglobin 10.0 L Hematocrit 29.0 L Potassium 3.8 3.4 L Glucose 80 79 Sodium 141 Chloride 110 H Carbon Dioxide 23 Anion Gap 11.8 BUN 11 Creatinine 0.80 GFR Calculation 119 BUN/Creatinine Ratio 13.00 POC Glucose Calculated Osmolality 278.3 Calcium 7.2 L Magnesium 1.8 Blood Type Antibody Screen Crossmatch 11/27/16 11/27/16 11/27/16 03:55 06:40 08:00 WBC RBC Hgb Hct MCV MCH MCHC RDW Plt Count MPV Neut % (Auto) Lymph % (Auto) [place] % (Auto) Eos % (Auto) Baso % (Auto) Neut # (Auto) Lymph # (Auto) [place] # (Auto) Eos # (Auto) Baso # (Auto) Immature Gran % Nucleated RBC % Immature Gran # Nucleated RBCs # ABG pH 7.413 7.418 ABG pCO2 35.3 37.7 ABG pO2 90.2 61.0 L ABG HCO3 22.0 23.8 ABG Total CO2 23.1 25.0 ABG O2 Saturation 96.5 90.8 L ABG Base Excess -2.2 -0.5 Hemoglobin 9.6 L 9.5 L Hematocrit 28.0 L 28.0 L Potassium 3.9 4.0 Glucose 86 101 Sodium Chloride Carbon Dioxide Anion Gap BUN Creatinine GFR Calculation BUN/Creatinine Ratio POC Glucose 88 Calculated Osmolality Calcium Magnesium Blood Type Antibody Screen Crossmatch 11/27/16 11/27/16 12:50 13:48 WBC RBC Hgb Hct MCV MCH MCHC RDW Plt Count MPV Neut % (Auto) Lymph % (Auto) [place] % (Auto) Eos % (Auto) Baso % (Auto) Neut # (Auto) Lymph # (Auto) [place] # (Auto) Eos # (Auto) Baso # (Auto) Immature Gran % Nucleated RBC % Immature Gran # Nucleated RBCs # ABG pH 7.396 7.410 ABG pCO2 33.4 L 35.4 ABG pO2 82.8 106.6 H ABG HCO3 20.0 21.9 ABG Total CO2 21.1 L 23.0 ABG O2 Saturation 95.5 97.4 ABG Base Excess -4.3 L -2.3 Hemoglobin 8.7 L 8.9 L Hematocrit 26.0 L 26.0 L Potassium 3.8 3.6 Glucose 156 H 164 H Sodium Chloride Carbon Dioxide Anion Gap BUN Creatinine GFR Calculation BUN/Creatinine Ratio POC Glucose Calculated Osmolality Calcium Magnesium Blood Type Antibody Screen Crossmatch Quality Measures - VTE Contraindication to Pharmacological VTE Prophylaxis: Active Bleeding - Stroke Symptom Onset Unknown: No
[2016-11-27] MEDS: PHENYLEPHRINE DRIP 40 MG/250 ML PREMIX IV SCH (16:22)
[2016-11-27] MEDS: INSULIN REGULAR 100 UNIT/ML SUBCUT SCH ×2 (16:27→20:36)
--- NOTE | 2016-11-27 16:33 | Sleep Medicine Consult ---
Assessment and Plan (1) JORDAN (obstructive sleep apnea) Status: Chronic Assessment and plan: A friend has been contacted regarding bringing his CPAP machine EN. If made available, it can be utilized but will need in-line O2 with it. This was conveyed to the nurses. If his machine is not made available, we will have a auto titration CPAP available for him to utilize. Again, he will need in-line O2. We will follow-up results. Current Visit: Yes (2) Hypertension Status: Chronic Assessment and plan: The prevalence rate for obstructive sleep apnea patients with hypertension is 35 %. That rate can be as high as 80% in patients who require 4 or more medications for blood pressure control. Current Visit: Yes (3) Diabetes Status: Chronic Assessment and plan: The prevalence rate for obstructive sleep apnea in patients with type 2 diabetes can be as high as 86%. Those patients with moderate to severe obstructive sleep apnea are at a greater risk for diabetic nephropathy and neuropathy. Compliance with CPAP therapy for these patients can lead to improvement in glycemic control and improvement in insulin sensitivity. Current Visit: Yes Qualifiers: Diabetes mellitus type: type 2 Diabetes mellitus complication status: with unspecified complications History of Present Illness Chief complaint: Obstructive sleep apnea History of present illness: Mr. Kam is a 76 year old male known to the sleep clinic with a history of obstructive sleep apnea. He had originally been diagnosed at the [facility] sleep center many years ago and had an AHI of over 111. He last underwent titration in July 2012 and was placed on 15 cm of CPAP. He was seen in sleep clinic follow-up by Gita Wren NP, CONVERTING TECHNICIAN and had 100% compliance for over 4 hours with an average AHI of 6.9. He was doing well symptomatically at that time. He recently had issues with burning chest discomfort and underwent heart cath and was found to have an 80% proximal LAD stenosis as well as severe aortic stenosis. He was transferred from [place] to [facility] for aortic valve replacement and bypass of his LAD. This was done yesterday with a HUERTAS graft and a bio prosthetic aortic valve replacement. He has been extubated and is on nonrebreather facemask O2 with good O2 sats. He is confused but does state that he has been using his CPAP up until the time of his admission here. His CPAP machine is not here with him in the hospital. Home Medications Medication Instructions Recorded Confirmed Type Aspirin [Aspirin EC] 81 mg PO DAILY 11/21/16 11/21/16 History Azithromycin [Azithromycin] 500 mg PO DAILY 11/21/16 11/21/16 History Carvedilol [Carvedilol] 25 mg PO BID 11/21/16 11/21/16 History Cholecalciferol (Vitamin D3) 1 capsule PO DAILY 11/21/16 11/21/16 History [Vitamin D3] Cinnamon Bark [Cinnamon] 2,000 mg PO DAILY 11/21/16 11/21/16 History Clopidogrel Bisulfate [Clopidogrel] 75 mg PO DAILY 11/21/16 11/21/16 History Krill Oil 2,500 mg PO BEDTIME 11/21/16 11/21/16 History Minocycline [Minocin] 50 mg PO BID 11/21/16 11/21/16 History metFORMIN [Glucophage] 1,000 mg PO BID W/MEALS 11/21/16 11/21/16 History Allergies Allergy/AdvReac Type Severity Reaction Status Date / Time Horse/Equine Containing Allergy Intermediate RASH Verified 11/21/16 18:31 Products Akkvrue-Lrf-Gvv Reductase AdvReac Intermediate Cramping Verified 11/21/16 18:31 Inhibitor of the Muscles Review of systems: Unable to obtain reliably due to his current condition. Exam (Pulmonay) H&P - Constitutional Vitals: Period Temp Pulse Resp BP Sys/Brock Pulse Ox Last 24 Hr 97.1 F-99.9 F 66-99 10-24 68-175/43-89 90-100 Exam: He is awake but seems confused. He does answer some simple questions reliably. Pupils equal round reactive to light and accommodation. Extraocular movements intact. Oropharynx with a class IV Mallampati exam. Neck supple without adenopathy. Chest with symmetrical breath sounds. No significant wheeze or rhonchi. Cardiac exam reveals a regular rhythm. Abdomen soft nontender extremities without increased edema. Neurologically, he follows simple commands. He is awake and is communicative. Medical,Surgical,& Family Hx - Medical History Cardio: History of: Cardiac Dysrhythmia, CAD, Hypertension, Valvular Heart Disease Neurology: History of: Migraine No history of: Seizures Endocrine: History of: Diabetes Mellitus (NIDDM), Dyslipidemia Respiratory: History of: Asthma Genitourinary: History of: Kidney Stones, Prostate Problems Musculoskeletal: History of: Back/Neck Problems, Degenerative Disk Disease, Herniated Disk, Musculoskeletal Problems No history of: Amputation Hematology: No history of: Blood Transfusion Reaction - Surgical History Cardiac Surgeries: Sugical HX of: Cardiac Catheterization Thoracic Surgeries: Patient denies;: Organ Transplant, Lobectomy Neurologic Surgeries: Patient denies: Neurologic Surgery HEENT Surgeries: Patient denies: Tonsilectomy & Adenoidectomy Abdominal Surgeries: Surgical HX of: Abdominal Surgery (spleen) Reproductive Surgeries: Patient denies;: Genitourinary Surgery - Family History Family History: Reports;: Family Diabetes, Family Heart Disease, Family Hypertension - Social History Smoking Status: Former smoker Frequency of Alcohol Use: None Type of Drug Use: None Results - Labs CBC & BMP: 11/27/16 03:45 11/27/16 03:45 Lab Results: I have reviewed the past 24 hour labs Quality Measures - VTE Contraindication to Pharmacological VTE Prophylaxis: Active Bleeding - Stroke Symptom Onset Unknown: No
[2016-11-27] MEDS: METOPROLOL TARTRATE 5 MG/5 ML VIAL IV SCH (18:00)
[2016-11-27] MEDS: INSULIN REGULAR DRIP 100 ML IV SCH (20:06)
[2016-11-28] MEDS: METOPROLOL TARTRATE 5 MG/5 ML VIAL IV SCH ×4 (01:41→17:45)
[2016-11-28] MEDS: INSULIN REGULAR 100 UNIT/ML SUBCUT SCH ×7 (01:42→23:38)
[2016-11-28] MEDS: MORPHINE 10 MG/1 ML VIAL IV PRN (02:48)
[2016-11-28] MEDS: ALBUTEROL/IPRATROPIUM 3 ML NEB RESP TX SCH ×5 (03:58→20:21)
[2016-11-28 04:38] LABS: Basophils % 0.1 % (0.0-0.8); Hematocrit 24.9 VOL% (42.0-52.0); Hemoglobin 8.3 GM/DL (14.0-18.0); Immature Granulocytes Absolute 0.21 #; Lymphocytes # 1.5 10*3/uL (1.4-4.0); Lymphocytes % 7.2 % (21.2-54.2); Mean Corpuscular HGB Conc 33.3 GM/DL (32-36); Mean Corpuscular Hemoglobin 30 PG (27-34); Mean Corpuscular Volume 89.9 FL (87-102); Mean Platelet Volume 10.2 FL (9.6-12.0); Monocytes # 2.5 10*3/uL (0.11-0.8); Monocytes % 12.1 % (1.7-12.7); NRBC # 0.02 10*3/uL; Neutrophils # 16.7 10*3/uL (1.4-7.4); Neutrophils % 79.6 % (38.7-73.9); Platelet Count 218 T/CUMM (130-400); Red Blood Count 2.77 MC/CUMM (3.8-5.5); Red Cell Distribution Width 16.7 % (9.3-17.3); White Blood Count 20.9 T/CUMM (4-12)
[2016-11-28 05:15] LABS: Calcium 7.7 MG/DL (8.5-10.1); Magnesium 2.6 MG/DL (1.8-2.4); Osmolality,Calculated 284.3 MOS/KG (273-304); Potassium 4.2 MMOL/L (3.5-5.1)
[2016-11-28 05:27] LABS: Band Neutrophils 1 % (0-10); Lymphocytes 12 % (20-55); Segmented Neutrophils 79 % (50-85); Total Cells Counted 100
[2016-11-28 05:28] LABS: Hypochromasia 1+; Ovalocytes Slight; Platelet Estimate Normal
[2016-11-28 05:29] LABS: Microcytosis Slight
--- NOTE | 2016-11-28 06:44 | XRay Report ---
XR chest 1V portable Indication: Evaluation for pneumothorax. Comparison: Chest x-ray 11/27/2016 Technique: Portable AP chest was performed. Findings: Multiple tubes and medical support devices appear stable with exception of interval removal of Tebbetts-Patty catheter. No discrete displacement of pleural surfaces to suggest pneumothorax is demonstrated. Heart size is stable. Proximal opacity left lung base suggesting atelectasis is stable. Impression: 1. Interval removal of Tebbetts-Patty catheter. 2. Atelectatic changes are suggested within the left lung base. 11/28/2016 6:38 AM PROCEDURE INTERPRETED AT [facility] DEPARTMENT OF RADIOLOGY Final Report Signed by: Dr. Roberto Carlos Baker
[2016-11-28] MEDS: DEXMEDETOMIDINE 200 MCG in SODIUM CHLORIDE 0.9% 48 ML IV SCH (07:04)
--- NOTE | 2016-11-28 08:05 | Sleep Medicine Progress Note ---
Assessment and Plan (1) JORDAN (obstructive sleep apnea) Status: Chronic Assessment and plan: We will continue his regular CPAP at night for now with in-line O2 as required. I anticipate that his usage of CPAP will improve as he recovers from his surgery. He had been a very avid user of his CPAP previously. I did encourage him to continue with his postop pulmonary toilet utilizing incentive spirometry. Current Visit: Yes (2) Hypertension Status: Chronic Current Visit: Yes (3) Diabetes Status: Chronic Current Visit: Yes Qualifiers: Diabetes mellitus type: type 2 Diabetes mellitus complication status: with unspecified complications Sleep Medicine Subjective Interval history: Patient appears much better this morning. He appears more comfortable and alert. He recognized me. He is comfortable on nasal cannula O2 with good sats. He did not tolerate CPAP last night. He does have his own machine here now and we will have it downloaded. Exam (Progress Note) - Constitutional Vitals: Period Temp Pulse Resp BP Sys/Brock Pulse Ox Last 24 Hr 97.4 F-99.6 F 66-99 10-23 68-175/43-89 90-100 Exam: He is alert and responsive in no acute distress. Chest with good breath sounds bilaterally without significant wheeze or rhonchi. Cardiac exam reveals a regular rhythm. No murmur or rub is heard. Abdomen soft nontender without palpable hepatosplenomegaly or mass. Extremities are without clubbing or cyanosis. Neurologically, he is more alert and oriented. Results - Labs CBC & BMP: 11/28/16 04:21 11/28/16 04:21 Lab Results: I have reviewed the past 24 hour labs
[2016-11-28] MEDS: POTASSIUM CHLORIDE RIDER 20 MEQ in PREMIX 1 EACH IV PRN (08:15)
[2016-11-28] MEDS: ASPIRIN EC 325 MG TABLET PO SCH (08:25)
[2016-11-28] MEDS: FUROSEMIDE 40 MG TABLET PO SCH (08:25)
[2016-11-28] MEDS: CHLORHEXIDINE 0.12% ORAL RINSE 60 ML BOTTLE SWISH/SPIT SCH ×2 (08:30→21:14)
--- NOTE | 2016-11-28 11:17 | Pathology Report from [facility] ---
[facility] ACCESSION # : [id number] PATIENT NAME : Lyndsay Kam ORDERING DR : Anselmo Rice MD CLINICAL HX: Aortic stenosis - Coronary artery disease POST-OP DX: Same SPECIMEN INFO: Aortic valve tissue GROSS DESCRIPTION: The specimen is received in formalin labeled with the patients name and consists of an aggregate of partially calcified valve tissue measuring 3.0 x 2.2 cm. Nursing Informatics Clinical Analyst sections submitted in one cassette following decalcification. DIAGNOSIS FOR LYNDSAY KAM: AORTIC VALVE TISSUE: Dystrophic calcification. COLLECTED DATE: 11/26/2016 [facility] REPORT DATE: 11/28/2016 ELECTRONICALLY SIGNED BY: Diego Boston III, M.D. 11/28/2016 - 10:13:04 [facility]
--- NOTE | 2016-11-28 14:25 | Cardiology Progress Note ---
<Elif Douglas - Last Filed: 11/28/16 14:29> Assessment and Plan (1) Coronary arteriosclerosis Status: Chronic Assessment and plan: See plan of care listed below. Current Visit: Yes (2) Aortic stenosis, severe Status: Chronic Assessment and plan: See plan of care listed below. Current Visit: Yes (3) Hypertension Status: Chronic Assessment and plan: See plan of care listed below. Current Visit: Yes (4) JORDAN (obstructive sleep apnea) Status: Chronic Assessment and plan: See plan of care listed below. Current Visit: Yes (5) Diabetes Status: Chronic Assessment and plan: See plan of care listed below. Current Visit: Yes Qualifiers: Diabetes mellitus type: type 2 Diabetes mellitus complication status: with unspecified complications Cardiology - PN: Subj Interval history: Glazier Artist: Dr. Dugan SUMMARY : Mr. Kam is a 76 year old male followed by Dr. Dugan at [place] who is had severe aortic stenosis for some time. PMH includes JORDAN (wears CPAP nightly). He had a episode of chest "burning" while lying in bed last week. He reports this concerned Dr. Dugan so he brought him in for heart catheterization to better evaluate his aortic stenosis. He had 80% proximal LAD stenosis and his aortic stenosis was felt to be critical. He was transferred here for bypass and AVR. Patient is now status post AVR and CABG November 26, 2016 with HUERTAS to LAD and aortic valve replacement with size 23 mm bioprosthetic valve. DICK was performed post surgery and revealed left ventricular ejection fraction of 55-60%. Newly placed aortic valve was well seated and functioning appropriately. Trace MR. November 28 - Patient was seen and examined on the telemetry unit. He is doing well postoperatively and has been without complications. Today is postop day #2. Corby chest pain, heaviness and tightness as well as shortness of breath. Chest tubes 2 intact. Midsternal chest incision dressing is dry and intact. Vital signs are stable. Telemetry has been reviewed, he has been without dysrhythmia. Labs were reviewed. Currently in normal sinus rhythm with heart rates in the 90s without any overt arrhythmias or ectopy noted. ASSESSMENT/PLAN: 1. SEVERE AORTIC STENOSIS - Patient is now status post aVR. Doing well postoperatively without complications. Continue current plan of care. 2. CORONARY ARTERIOSCLEROSIS - Clinically stable at present. Continue current plan of care. 3. HYPERTENSION - Patient's blood pressure is suboptimally controlled. Will add low-dose AMARA inhibitor at this time as patient is a diabetic. 4. JORDAN - CPAP nightly. 5. DIABETES - Continue current plan of care with sliding scale insulin. Further plan and addendum to follow per Dr. Bee. Exam (Progress Note) - Constitutional Vitals: Period Temp Pulse Resp BP Sys/Brock Pulse Ox Last 24 Hr 98.8 F-99.6 F 79-102 12-23 118-165/53-83 91-99 Exam: General appearance: morbidly obese - Head Head exam: Present: normal inspection - Eye Eye exam: Present: EOMI Pupils: Present: [place] - ENT ENT exam: Present: normal exam - Neck Neck exam: Present: normal inspection - Respiratory Respiratory exam: Present: clear to auscultation bilaterally without wheeze or rhonchi. - Cardiovascular Cardiovascular exam: Present: regular rate and rhythm - GI/Abdominal GI/Abdominal exam: Present: normal bowel sounds - Extremities Exam Extremities exam: Present: normal inspection - Back Exam Back exam: Present: normal inspection - Neurological Exam Neurological exam: Present: alert, oriented X3 - Psychiatric Psychiatric exam: Present: other (sedated) - Skin Skin exam: Present: normal color, warm, dry Result/EKG - Labs CBC & BMP: 11/28/16 04:21 11/28/16 04:21 Lab Results: I have reviewed the past 24 hour labs Labs: Laboratory Results - last 24 hr 11/27/16 11/27/16 11/27/16 13:48 16:18 20:15 WBC RBC Hgb Hct MCV MCH MCHC RDW Plt Count MPV Neut % (Auto) Lymph % (Auto) [place] % (Auto) Eos % (Auto) Baso % (Auto) Neut # (Auto) Lymph # (Auto) [place] # (Auto) Eos # (Auto) Baso # (Auto) Total Counted Immature Gran % Nucleated RBC % Immature Gran # Segmented Neutrophils Band Neutrophils Lymphocytes Monocytes Nucleated RBCs # Platelet Estimate Hypochromasia Microcytosis Ovalocytes Morphology Comment ABG pH 7.410 ABG pCO2 35.4 ABG pO2 106.6 H ABG HCO3 21.9 ABG Total CO2 23.0 ABG O2 Saturation 97.4 ABG Base Excess -2.3 Hemoglobin 8.9 L Hematocrit 26.0 L Potassium 3.6 Glucose 164 H Sodium Chloride Carbon Dioxide Anion Gap BUN Creatinine GFR Calculation BUN/Creatinine Ratio POC Glucose 183 H 185 H Calculated Osmolality Calcium Magnesium 11/28/16 11/28/16 11/28/16 00:10 04:21 04:21 WBC 20.9 H D RBC 2.77 L Hgb 8.3 L Hct 24.9 L MCV 89.9 MCH 30 MCHC 33.3 RDW 16.7 Plt Count 218 MPV 10.2 Neut % (Auto) 79.6 H Lymph % (Auto) 7.2 L [place] % (Auto) 12.1 Eos % (Auto) 0.0 Baso % (Auto) 0.1 Neut # (Auto) 16.7 H Lymph # (Auto) 1.5 [place] # (Auto) 2.5 H Eos # (Auto) 0.0 Baso # (Auto) 0.0 Total Counted 100 Immature Gran % 1.0 Nucleated RBC % 0.1 Immature Gran # 0.21 Segmented Neutrophils 79 Band Neutrophils 1 Lymphocytes 12 L Monocytes 8 Nucleated RBCs # 0.02 Platelet Estimate Normal Hypochromasia 1+ Microcytosis Slight Ovalocytes Slight Morphology Comment ABG pH ABG pCO2 ABG pO2 ABG HCO3 ABG Total CO2 ABG O2 Saturation ABG Base Excess Hemoglobin Hematocrit Potassium 4.2 Glucose 176 H Sodium 141 Chloride 106 Carbon Dioxide 25 Anion Gap 14.2 BUN 12 Creatinine 0.80 GFR Calculation 119 BUN/Creatinine Ratio 15.00 POC Glucose 207 H Calculated Osmolality 284.3 Calcium 7.7 L Magnesium 2.6 H 11/28/16 11/28/16 11/28/16 07:59 10:45 11:45 WBC RBC Hgb Hct MCV MCH MCHC RDW Plt Count MPV Neut % (Auto) Lymph % (Auto) [place] % (Auto) Eos % (Auto) Baso % (Auto) Neut # (Auto) Lymph # (Auto) [place] # (Auto) Eos # (Auto) Baso # (Auto) Total Counted Immature Gran % Nucleated RBC % Immature Gran # Segmented Neutrophils Band Neutrophils Lymphocytes Monocytes Nucleated RBCs # Platelet Estimate Hypochromasia Microcytosis Ovalocytes Morphology Comment ABG pH ABG pCO2 ABG pO2 ABG HCO3 ABG Total CO2 ABG O2 Saturation ABG Base Excess Hemoglobin Hematocrit Potassium Glucose Sodium Chloride Carbon Dioxide Anion Gap BUN Creatinine GFR Calculation BUN/Creatinine Ratio POC Glucose 199 H 166 H 167 H Calculated Osmolality Calcium Magnesium Quality Measures - VTE Contraindication to Pharmacological VTE Prophylaxis: Active Bleeding - Stroke Symptom Onset Unknown: No <Azalea Bee - Last Filed: 11/28/16 17:19> Assessment and Plan (1) Obesity Status: Chronic Current Visit: Yes (2) Coronary arteriosclerosis Status: Chronic Current Visit: Yes (3) Aortic stenosis, severe Status: Chronic Current Visit: Yes (4) Hypertension Status: Chronic Current Visit: Yes (5) JORDAN (obstructive sleep apnea) Status: Chronic Current Visit: Yes (6) Diabetes Status: Chronic Current Visit: Yes Qualifiers: Diabetes mellitus type: type 2 Diabetes mellitus complication status: with unspecified complications (7) Dyslipidemia Status: Chronic Current Visit: Yes Cardiology - PN: Subj Interval history: I saw and examined this patient in the plastering contractor hours worse in the ICU and put a note in that time. Apparently this note was lost and is not available in the chart. I am redoing this note with the assistance of Ms. Douglas who also saw and examined the patient with me. Patient is postop day #2 status post aortic valve replacement and HUERTAS to the LAD. He had 20 mm aortic prosthesis and is doing well. He has had no dysrhythmias and no chest pain when I initially saw on this morning his chest tubes were still in place there out and he is now on the floor. He has no complaints. Exam (Progress Note) - Constitutional Vitals: Period Temp Pulse Resp BP Sys/Brock Pulse Ox Last 24 Hr 97.9 F-99.6 F 79-102 12-23 118-165/53-81 92-99 Exam: He has a pericardial rub. DAREN hose in place. The abdomen is soft. - Head Head exam: Present: normal inspection - Eye Eye exam: Present: EOMI Pupils: Present: MADISON - Respiratory Respiratory exam: Present: rhonchi - Cardiovascular Cardiovascular exam: Present: regular rate and rhythm (with rub) - GI/Abdominal GI/Abdominal exam: Present: normal bowel sounds - Extremities Exam Extremities exam: Present: normal inspection - Back Exam Back exam: Present: normal inspection - Neurological Exam Neurological exam: Present: alert, oriented X3 - Psychiatric Psychiatric exam: Present: normal affect - Skin Skin exam: Present: normal color, warm, dry Result/EKG - Labs CBC & BMP: 11/28/16 04:21 11/28/16 04:21 Labs: Laboratory Results - last 24 hr 11/27/16 11/27/16 11/28/16 16:18 20:15 00:10 WBC RBC Hgb Hct MCV MCH MCHC RDW Plt Count MPV Neut % (Auto) Lymph % (Auto) [place] % (Auto) Eos % (Auto) Baso % (Auto) Neut # (Auto) Lymph # (Auto) [place] # (Auto) Eos # (Auto) Baso # (Auto) Total Counted Immature Gran % Nucleated RBC % Immature Gran # Segmented Neutrophils Band Neutrophils Lymphocytes Monocytes Nucleated RBCs # Platelet Estimate Hypochromasia Microcytosis Ovalocytes Morphology Comment Sodium Potassium Chloride Carbon Dioxide Anion Gap BUN Creatinine GFR Calculation BUN/Creatinine Ratio Glucose POC Glucose 183 H 185 H 207 H Calculated Osmolality Calcium Magnesium 11/28/16 11/28/16 11/28/16 04:21 04:21 07:59 WBC 20.9 H D RBC 2.77 L Hgb 8.3 L Hct 24.9 L MCV 89.9 MCH 30 MCHC 33.3 RDW 16.7 Plt Count 218 MPV 10.2 Neut % (Auto) 79.6 H Lymph % (Auto) 7.2 L [place] % (Auto) 12.1 Eos % (Auto) 0.0 Baso % (Auto) 0.1 Neut # (Auto) 16.7 H Lymph # (Auto) 1.5 [place] # (Auto) 2.5 H Eos # (Auto) 0.0 Baso # (Auto) 0.0 Total Counted 100 Immature Gran % 1.0 Nucleated RBC % 0.1 Immature Gran # 0.21 Segmented Neutrophils 79 Band Neutrophils 1 Lymphocytes 12 L Monocytes 8 Nucleated RBCs # 0.02 Platelet Estimate Normal Hypochromasia 1+ Microcytosis Slight Ovalocytes Slight Morphology Comment Sodium 141 Potassium 4.2 Chloride 106 Carbon Dioxide 25 Anion Gap 14.2 BUN 12 Creatinine 0.80 GFR Calculation 119 BUN/Creatinine Ratio 15.00 Glucose 176 H POC Glucose 199 H Calculated Osmolality 284.3 Calcium 7.7 L Magnesium 2.6 H 11/28/16 11/28/16 11/28/16 10:45 11:45 16:08 WBC RBC Hgb Hct MCV MCH MCHC RDW Plt Count MPV Neut % (Auto) Lymph % (Auto) [place] % (Auto) Eos % (Auto) Baso % (Auto) Neut # (Auto) Lymph # (Auto) [place] # (Auto) Eos # (Auto) Baso # (Auto) Total Counted Immature Gran % Nucleated RBC % Immature Gran # Segmented Neutrophils Band Neutrophils Lymphocytes Monocytes Nucleated RBCs # Platelet Estimate Hypochromasia Microcytosis Ovalocytes Morphology Comment Sodium Potassium Chloride Carbon Dioxide Anion Gap BUN Creatinine GFR Calculation BUN/Creatinine Ratio Glucose POC Glucose 166 H 167 H 204 H Calculated Osmolality Calcium Magnesium
--- NOTE | 2016-11-28 15:19 | Cardiothoracic Progress Note ---
Assessment and Plan (1) Coronary arteriosclerosis Status: Chronic Assessment and plan: Postoperative day 2 status post CABG AVR. Patient is progressing well without any problems. He is alert oriented 3. We will transfer to telemetry. I removed 1 of the mediastinal chest tubes. We will work with physical therapy and Occupational Therapy.. Current Visit: Yes Exam (Progress Note) - Constitutional Vitals: Period Temp Pulse Resp BP Sys/Brock Pulse Ox Last 24 Hr 98.8 F-99.6 F 79-102 12-23 118-165/53-71 91-99 Result/EKG - Labs CBC & BMP: 11/28/16 04:21 11/28/16 04:21 Labs: Laboratory Results - last 24 hr 11/27/16 11/27/16 11/27/16 13:48 16:18 20:15 WBC RBC Hgb Hct MCV MCH MCHC RDW Plt Count MPV Neut % (Auto) Lymph % (Auto) [place] % (Auto) Eos % (Auto) Baso % (Auto) Neut # (Auto) Lymph # (Auto) [place] # (Auto) Eos # (Auto) Baso # (Auto) Total Counted Immature Gran % Nucleated RBC % Immature Gran # Segmented Neutrophils Band Neutrophils Lymphocytes Monocytes Nucleated RBCs # Platelet Estimate Hypochromasia Microcytosis Ovalocytes Morphology Comment ABG pH 7.410 ABG pCO2 35.4 ABG pO2 106.6 H ABG HCO3 21.9 ABG Total CO2 23.0 ABG O2 Saturation 97.4 ABG Base Excess -2.3 Hemoglobin 8.9 L Hematocrit 26.0 L Potassium 3.6 Glucose 164 H Sodium Chloride Carbon Dioxide Anion Gap BUN Creatinine GFR Calculation BUN/Creatinine Ratio POC Glucose 183 H 185 H Calculated Osmolality Calcium Magnesium 11/28/16 11/28/16 11/28/16 00:10 04:21 04:21 WBC 20.9 H D RBC 2.77 L Hgb 8.3 L Hct 24.9 L MCV 89.9 MCH 30 MCHC 33.3 RDW 16.7 Plt Count 218 MPV 10.2 Neut % (Auto) 79.6 H Lymph % (Auto) 7.2 L [place] % (Auto) 12.1 Eos % (Auto) 0.0 Baso % (Auto) 0.1 Neut # (Auto) 16.7 H Lymph # (Auto) 1.5 [place] # (Auto) 2.5 H Eos # (Auto) 0.0 Baso # (Auto) 0.0 Total Counted 100 Immature Gran % 1.0 Nucleated RBC % 0.1 Immature Gran # 0.21 Segmented Neutrophils 79 Band Neutrophils 1 Lymphocytes 12 L Monocytes 8 Nucleated RBCs # 0.02 Platelet Estimate Normal Hypochromasia 1+ Microcytosis Slight Ovalocytes Slight Morphology Comment ABG pH ABG pCO2 ABG pO2 ABG HCO3 ABG Total CO2 ABG O2 Saturation ABG Base Excess Hemoglobin Hematocrit Potassium 4.2 Glucose 176 H Sodium 141 Chloride 106 Carbon Dioxide 25 Anion Gap 14.2 BUN 12 Creatinine 0.80 GFR Calculation 119 BUN/Creatinine Ratio 15.00 POC Glucose 207 H Calculated Osmolality 284.3 Calcium 7.7 L Magnesium 2.6 H 11/28/16 11/28/16 11/28/16 07:59 10:45 11:45 WBC RBC Hgb Hct MCV MCH MCHC RDW Plt Count MPV Neut % (Auto) Lymph % (Auto) [place] % (Auto) Eos % (Auto) Baso % (Auto) Neut # (Auto) Lymph # (Auto) [place] # (Auto) Eos # (Auto) Baso # (Auto) Total Counted Immature Gran % Nucleated RBC % Immature Gran # Segmented Neutrophils Band Neutrophils Lymphocytes Monocytes Nucleated RBCs # Platelet Estimate Hypochromasia Microcytosis Ovalocytes Morphology Comment ABG pH ABG pCO2 ABG pO2 ABG HCO3 ABG Total CO2 ABG O2 Saturation ABG Base Excess Hemoglobin Hematocrit Potassium Glucose Sodium Chloride Carbon Dioxide Anion Gap BUN Creatinine GFR Calculation BUN/Creatinine Ratio POC Glucose 199 H 166 H 167 H Calculated Osmolality Calcium Magnesium Quality Measures - VTE Contraindication to Pharmacological VTE Prophylaxis: Active Bleeding - Stroke Symptom Onset Unknown: No Specialty Discharge - Follow Up or Referrals
[2016-11-28] MEDS: LISINOPRIL 5 MG TABLET PO SCH (17:45)
[2016-11-28] MEDS ORDERED: KRILL OIL PO SCH (21:00)
[2016-11-28] MEDS: CARVEDILOL 25 MG TABLET PO SCH (21:14)
[2016-11-28] MEDS: ATORVASTATIN 40 MG TABLET PO SCH (21:14)
[2016-11-29] MEDS: METOPROLOL TARTRATE 5 MG/5 ML VIAL IV SCH ×2 (00:25→05:05)
[2016-11-29] MEDS: ALBUTEROL/IPRATROPIUM 3 ML NEB RESP TX SCH ×6 (00:29→19:24)
[2016-11-29] MEDS: INSULIN REGULAR 100 UNIT/ML SUBCUT SCH ×5 (03:57→20:35)
[2016-11-29 04:53] LABS: Basophils % 0.1 % (0.0-0.8); Hematocrit 23.4 VOL% (42.0-52.0); Hemoglobin 7.8 GM/DL (14.0-18.0); Immature Granulocytes % 0.7 %; Immature Granulocytes Absolute 0.13 #; Lymphocytes # 2.3 10*3/uL (1.4-4.0); Mean Corpuscular HGB Conc 33.3 GM/DL (32-36); Mean Corpuscular Hemoglobin 30 PG (27-34); Mean Corpuscular Volume 90.7 FL (87-102); Mean Platelet Volume 10.3 FL (9.6-12.0); Monocytes # 2.7 10*3/uL (0.11-0.8); Monocytes % 14.1 % (1.7-12.7); Neutrophils % 73.1 % (38.7-73.9); Platelet Count 218 T/CUMM (130-400); Red Blood Count 2.58 MC/CUMM (3.8-5.5); Red Cell Distribution Width 16.4 % (9.3-17.3); White Blood Count 19.1 T/CUMM (4-12)
[2016-11-29 05:30] LABS: Calcium 7.4 MG/DL (8.5-10.1); Magnesium 2.6 MG/DL (1.8-2.4); Potassium 4.1 MMOL/L (3.5-5.1)
[2016-11-29] MEDS ORDERED: AMIODARONE INJ 150 MG in DEXTROSE 5% 100 ML IV ONE ×5 (05:37→21:25)
[2016-11-29] MEDS ORDERED: AMIODARONE 150 MG/3 ML VIAL ONE ×2 (05:40→21:29)
[2016-11-29] MEDS ORDERED: AMIODARONE INJ 450 MG in DEXTROSE 5% 241 ML IV SCH (06:00)
--- NOTE | 2016-11-29 06:35 | XRay Report ---
XR chest 1V portable Indication: Evaluation for pneumothorax. Comparison: Chest x-ray 11/28/2016 Technique: Portable AP chest was performed. Findings: Mediastinal drains and left-sided chest tube remain present. Atelectatic changes of the left lung base are suggested. No pneumothorax is definitively demonstrated. Cardiomediastinal silhouette is stable in appearance. Mild prominence of the superior mediastinum is noted which may reflect vascular congestion. Bones and soft tissues appear stable. Impression: 1. No adverse interval change in the chest. 11/29/2016 6:32 AM PROCEDURE INTERPRETED AT [facility] DEPARTMENT OF RADIOLOGY Final Report Signed by: Dr. Roberto Carlos Baker
[2016-11-29] MEDS ORDERED: CINNAMON BARK PO SCH (09:00)
--- NOTE | 2016-11-29 09:36 | Cardiothoracic Progress Note ---
Assessment and Plan (1) Coronary arteriosclerosis Status: Chronic Assessment and plan: Postoperative day 3 status post CABG AVR. Patient is progressing well without any problems. He is alert oriented 3. He started having A. fib this morning requiring amiodarone bolus and drip. He is otherwise hemodynamically stable. We will get him out of bed and ambulate. Physical therapy and Occupational Therapy. We will transfuse 1 unit of packed RBCs and will give him an extra dose of Lasix with it. I removed the mediastinal as well as the pleural chest tubes. Current Visit: Yes Exam (Progress Note) - Constitutional Vitals: Period Temp Pulse Resp BP Sys/Brock Pulse Ox Last 24 Hr 97.1 F-99.0 F 85-134 12-23 91-152/50-81 90-99 Result/EKG - Labs CBC & BMP: 11/29/16 03:22 11/29/16 03:22 Labs: Laboratory Results - last 24 hr 11/27/16 11/27/16 11/27/16 05:01 05:47 06:50 WBC RBC Hgb Hct MCV MCH MCHC RDW Plt Count MPV Neut % (Auto) Lymph % (Auto) [place] % (Auto) Eos % (Auto) Baso % (Auto) Neut # (Auto) Lymph # (Auto) [place] # (Auto) Eos # (Auto) Baso # (Auto) Immature Gran % Nucleated RBC % Immature Gran # Nucleated RBCs # Sodium Potassium Chloride Carbon Dioxide Anion Gap BUN Creatinine GFR Calculation BUN/Creatinine Ratio Glucose POC Glucose 88 89 100 Calculated Osmolality Calcium Magnesium 11/27/16 11/27/16 11/28/16 07:55 12:48 10:45 WBC RBC Hgb Hct MCV MCH MCHC RDW Plt Count MPV Neut % (Auto) Lymph % (Auto) [place] % (Auto) Eos % (Auto) Baso % (Auto) Neut # (Auto) Lymph # (Auto) [place] # (Auto) Eos # (Auto) Baso # (Auto) Immature Gran % Nucleated RBC % Immature Gran # Nucleated RBCs # Sodium Potassium Chloride Carbon Dioxide Anion Gap BUN Creatinine GFR Calculation BUN/Creatinine Ratio Glucose POC Glucose 112 H 114 H 166 H Calculated Osmolality Calcium Magnesium 11/28/16 11/28/16 11/28/16 11:45 16:08 19:24 WBC RBC Hgb Hct MCV MCH MCHC RDW Plt Count MPV Neut % (Auto) Lymph % (Auto) [place] % (Auto) Eos % (Auto) Baso % (Auto) Neut # (Auto) Lymph # (Auto) [place] # (Auto) Eos # (Auto) Baso # (Auto) Immature Gran % Nucleated RBC % Immature Gran # Nucleated RBCs # Sodium Potassium Chloride Carbon Dioxide Anion Gap BUN Creatinine GFR Calculation BUN/Creatinine Ratio Glucose POC Glucose 167 H 204 H 175 H Calculated Osmolality Calcium Magnesium 11/28/16 11/29/16 11/29/16 23:27 03:22 03:22 WBC 19.1 H RBC 2.58 L Hgb 7.8 L Hct 23.4 L MCV 90.7 MCH 30 MCHC 33.3 RDW 16.4 Plt Count 218 MPV 10.3 Neut % (Auto) 73.1 Lymph % (Auto) 12.0 L [place] % (Auto) 14.1 H Eos % (Auto) 0.0 Baso % (Auto) 0.1 Neut # (Auto) 14.0 H Lymph # (Auto) 2.3 [place] # (Auto) 2.7 H Eos # (Auto) 0.0 Baso # (Auto) 0.0 Immature Gran % 0.7 Nucleated RBC % 0.5 Immature Gran # 0.13 Nucleated RBCs # 0.10 Sodium 143 Potassium 4.1 Chloride 107 Carbon Dioxide 28 Anion Gap 12.1 BUN 17 Creatinine 0.80 GFR Calculation 119 BUN/Creatinine Ratio 21.00 H Glucose 146 H POC Glucose 191 H Calculated Osmolality 289.0 Calcium 7.4 L Magnesium 2.6 H 11/29/16 11/29/16 03:50 07:20 WBC RBC Hgb Hct MCV MCH MCHC RDW Plt Count MPV Neut % (Auto) Lymph % (Auto) [place] % (Auto) Eos % (Auto) Baso % (Auto) Neut # (Auto) Lymph # (Auto) [place] # (Auto) Eos # (Auto) Baso # (Auto) Immature Gran % Nucleated RBC % Immature Gran # Nucleated RBCs # Sodium Potassium Chloride Carbon Dioxide Anion Gap BUN Creatinine GFR Calculation BUN/Creatinine Ratio Glucose POC Glucose 170 H 226 H Calculated Osmolality Calcium Magnesium Quality Measures - VTE Contraindication to Pharmacological VTE Prophylaxis: Active Bleeding - Stroke Symptom Onset Unknown: No Specialty Discharge - Follow Up or Referrals
[2016-11-29] MEDS ORDERED: FUROSEMIDE 40 MG/4 ML VIAL IV ONE (09:52)
[2016-11-29] MEDS: FUROSEMIDE 40 MG TABLET PO SCH (10:06)
[2016-11-29] MEDS: CARVEDILOL 25 MG TABLET PO SCH ×2 (10:06→20:07)
[2016-11-29] MEDS: LISINOPRIL 5 MG TABLET PO SCH (10:06)
[2016-11-29] MEDS: CHOLECALCIFEROL 1,000 UNIT TABLET PO SCH (10:06)
[2016-11-29] MEDS: CLOPIDOGREL 75 MG TABLET PO SCH (10:06)
[2016-11-29] MEDS: ASPIRIN EC 325 MG TABLET PO SCH (10:07)
[2016-11-29] MEDS: CHLORHEXIDINE 0.12% ORAL RINSE 60 ML BOTTLE SWISH/SPIT SCH ×2 (10:11→20:08)
--- NOTE | 2016-11-29 10:12 | Cardiology Progress Note ---
Addendum entered and electronically signed by Elif Douglas NP 11/29/16 10:28 : Updated physical exam. General appearance: morbidly obese - Head Head exam: Present: normal inspection - Eye Eye exam: Present: EOMI Pupils: Present: [place] - ENT ENT exam: Present: normal exam - Neck Neck exam: Present: normal inspection - Respiratory Respiratory exam: Present: clear to auscultation bilaterally without wheeze or rhonchi. - Cardiovascular Cardiovascular exam: Present: Irregular rhythm. Tachycardia. - GI/Abdominal GI/Abdominal exam: Present: normal bowel sounds - Extremities Exam Extremities exam: Present: normal inspection - Back Exam Back exam: Present: normal inspection - Neurological Exam Neurological exam: Present: alert, oriented X3 - Psychiatric Psychiatric exam: Present: Normal affect and mood - Skin Skin exam: Present: normal color, warm, dry. Midsternal chest incision healing well without dehiscence or drainage. Original Note: <Elif Douglas - Last Filed: 11/29/16 10:01> Assessment and Plan (1) Coronary arteriosclerosis Status: Chronic Assessment and plan: See plan of care listed below. Current Visit: Yes (2) Aortic stenosis, severe Status: Chronic Assessment and plan: See plan of care listed below. Current Visit: Yes (3) Hypertension Status: Chronic Assessment and plan: See plan of care listed below. Current Visit: Yes (4) JORDAN (obstructive sleep apnea) Status: Chronic Assessment and plan: See plan of care listed below. Current Visit: Yes (5) Diabetes Status: Chronic Assessment and plan: See plan of care listed below. Current Visit: Yes Qualifiers: Diabetes mellitus type: type 2 Diabetes mellitus complication status: with unspecified complications (6) Postoperative atrial fibrillation Status: Acute Assessment and plan: See plan of care listed below. Current Visit: Yes Cardiology - PN: Subj Interval history: Outside Operator: Dr. Dugan SUMMARY : Mr. Kam is a 76 year old male followed by Dr. Dugan at [place] who is had severe aortic stenosis for some time. PMH includes JORDAN (wears CPAP nightly). He had a episode of chest "burning" while lying in bed last week. He reports this concerned Dr. Dugan so he brought him in for heart catheterization to better evaluate his aortic stenosis. He had 80% proximal LAD stenosis and his aortic stenosis was felt to be critical. He was transferred here for bypass and AVR. Patient is now status post AVR and CABG November 26, 2016 with HUERTAS to LAD and aortic valve replacement with size 23 mm bioprosthetic valve. DICK was performed post surgery and revealed left ventricular ejection fraction of 55-60%. Newly placed aortic valve was well seated and functioning appropriately. Trace MR. November 29 - Patient was seen and examined on the telemetry unit. He is doing well postoperatively and has been without complications for the most part. Today is postop day #3. This morning, he developed atrial fibrillation with rapid ventricular response and amiodarone drip was initiated per Dr. Marcus Terry. Amiodarone drip is currently infusing at 1 mg an hour. Heart rates remain elevated, currently 120. Patient Corby chest pain, heaviness and tightness as well as shortness of breath. Chest tubes have now been removed. Midsternal chest incision healing well without dehiscence or drainage. Vital signs are stable. Labs were reviewed. Electrolytes are stable. Currently in atrial fibrillation with rapid ventricular response, heart rates in the 120s. ASSESSMENT/PLAN: 1. SEVERE AORTIC STENOSIS - Patient is now status post aVR. Doing well postoperatively without complications. Continue current plan of care. 2. CORONARY ARTERIOSCLEROSIS - Clinically stable at present. Continue current plan of care. 3. HYPERTENSION - This is well controlled. Continue current plan of care. 4. JORDAN - CPAP nightly. 5. DIABETES - Continue current plan of care with sliding scale insulin. 6. ATRIAL FIBRILLATION WITH RAPID VENTRICULAR RESPONSE - New onset. At this point, will continue amiodarone drip and attempt to transition patient to p.o. tomorrow. Continue beta-demian. At this point, we will continue Plavix and aspirin. Will consider switching patient from Plavix to a NOAC as this will provide patient better stroke prevention. Will discuss this with Dr. Bee. Further recommendations to follow. Further plan and addendum to follow per Dr. Bee. Exam (Progress Note) - Constitutional Vitals: Period Temp Pulse Resp BP Sys/Brock Pulse Ox Last 24 Hr 97.1 F-99.0 F 85-134 12-23 91-152/50-81 90-99 Exam: General appearance: morbidly obese - Head Head exam: Present: normal inspection - Eye Eye exam: Present: EOMI Pupils: Present: [place] - ENT ENT exam: Present: normal exam - Neck Neck exam: Present: normal inspection - Respiratory Respiratory exam: Present: clear to auscultation bilaterally without wheeze or rhonchi. - Cardiovascular Cardiovascular exam: Present: Irregular rhythm. Tachycardia. - GI/Abdominal GI/Abdominal exam: Present: normal bowel sounds - Extremities Exam Extremities exam: Present: normal inspection - Back Exam Back exam: Present: normal inspection - Neurological Exam Neurological exam: Present: alert, oriented X3 - Psychiatric Psychiatric exam: Present: other (sedated) - Skin Skin exam: Present: normal color, warm, dry Result/EKG - Labs CBC & BMP: 11/29/16 03:22 11/29/16 03:22 Lab Results: I have reviewed the past 24 hour labs Labs: Laboratory Results - last 24 hr 11/27/16 11/27/16 11/27/16 05:01 05:47 06:50 WBC RBC Hgb Hct MCV MCH MCHC RDW Plt Count MPV Neut % (Auto) Lymph % (Auto) [place] % (Auto) Eos % (Auto) Baso % (Auto) Neut # (Auto) Lymph # (Auto) [place] # (Auto) Eos # (Auto) Baso # (Auto) Immature Gran % Nucleated RBC % Immature Gran # Nucleated RBCs # Sodium Potassium Chloride Carbon Dioxide Anion Gap BUN Creatinine GFR Calculation BUN/Creatinine Ratio Glucose POC Glucose 88 89 100 Calculated Osmolality Calcium Magnesium 11/27/16 11/27/16 11/28/16 07:55 12:48 10:45 WBC RBC Hgb Hct MCV MCH MCHC RDW Plt Count MPV Neut % (Auto) Lymph % (Auto) [place] % (Auto) Eos % (Auto) Baso % (Auto) Neut # (Auto) Lymph # (Auto) [place] # (Auto) Eos # (Auto) Baso # (Auto) Immature Gran % Nucleated RBC % Immature Gran # Nucleated RBCs # Sodium Potassium Chloride Carbon Dioxide Anion Gap BUN Creatinine GFR Calculation BUN/Creatinine Ratio Glucose POC Glucose 112 H 114 H 166 H Calculated Osmolality Calcium Magnesium 11/28/16 11/28/16 11/28/16 11:45 16:08 19:24 WBC RBC Hgb Hct MCV MCH MCHC RDW Plt Count MPV Neut % (Auto) Lymph % (Auto) [place] % (Auto) Eos % (Auto) Baso % (Auto) Neut # (Auto) Lymph # (Auto) [place] # (Auto) Eos # (Auto) Baso # (Auto) Immature Gran % Nucleated RBC % Immature Gran # Nucleated RBCs # Sodium Potassium Chloride Carbon Dioxide Anion Gap BUN Creatinine GFR Calculation BUN/Creatinine Ratio Glucose POC Glucose 167 H 204 H 175 H Calculated Osmolality Calcium Magnesium 11/28/16 11/29/16 11/29/16 23:27 03:22 03:22 WBC 19.1 H RBC 2.58 L Hgb 7.8 L Hct 23.4 L MCV 90.7 MCH 30 MCHC 33.3 RDW 16.4 Plt Count 218 MPV 10.3 Neut % (Auto) 73.1 Lymph % (Auto) 12.0 L [place] % (Auto) 14.1 H Eos % (Auto) 0.0 Baso % (Auto) 0.1 Neut # (Auto) 14.0 H Lymph # (Auto) 2.3 [place] # (Auto) 2.7 H Eos # (Auto) 0.0 Baso # (Auto) 0.0 Immature Gran % 0.7 Nucleated RBC % 0.5 Immature Gran # 0.13 Nucleated RBCs # 0.10 Sodium 143 Potassium 4.1 Chloride 107 Carbon Dioxide 28 Anion Gap 12.1 BUN 17 Creatinine 0.80 GFR Calculation 119 BUN/Creatinine Ratio 21.00 H Glucose 146 H POC Glucose 191 H Calculated Osmolality 289.0 Calcium 7.4 L Magnesium 2.6 H 11/29/16 11/29/16 03:50 07:20 WBC RBC Hgb Hct MCV MCH MCHC RDW Plt Count MPV Neut % (Auto) Lymph % (Auto) [place] % (Auto) Eos % (Auto) Baso % (Auto) Neut # (Auto) Lymph # (Auto) [place] # (Auto) Eos # (Auto) Baso # (Auto) Immature Gran % Nucleated RBC % Immature Gran # Nucleated RBCs # Sodium Potassium Chloride Carbon Dioxide Anion Gap BUN Creatinine GFR Calculation BUN/Creatinine Ratio Glucose POC Glucose 170 H 226 H Calculated Osmolality Calcium Magnesium Quality Measures - VTE Contraindication to Pharmacological VTE Prophylaxis: Active Bleeding - Stroke Symptom Onset Unknown: No Specialty Discharge - Follow Up or Referrals <Azalea Bee - Last Filed: 11/29/16 10:45> Assessment and Plan (1) Obesity Status: Chronic Current Visit: Yes (2) Coronary arteriosclerosis Status: Chronic Current Visit: Yes (3) Aortic stenosis, severe Status: Chronic Current Visit: Yes (4) Hypertension Status: Chronic Current Visit: Yes (5) JORDAN (obstructive sleep apnea) Status: Chronic Current Visit: Yes (6) Diabetes Status: Chronic Current Visit: Yes Qualifiers: Diabetes mellitus type: type 2 Diabetes mellitus complication status: with unspecified complications (7) Dyslipidemia Status: Chronic Current Visit: Yes (8) Postoperative atrial fibrillation Status: Acute Assessment and plan: As above. Will address full dose anticoagulation if persist. Continue short- term anticoagulation and amiodarone at this time. Current Visit: Yes Cardiology - PN: Subj Interval history: Mr. Kam has no complaints today. He developed A. fib with RVR last night. He is postop day 3 status post aVR and HUERTAS to the LAD as described above. He is currently on amiodarone infusion and his heart rate remains elevated. We will transition to oral amiodarone. Hopefully this will resolve shortly. We will add other AV harvinder blocking agents as needed once he loaded. He states he had some heartburn but it appears to have resolved. I encouraged him to sit up more today and be active. Also discussed with Andrew Misael Exam (Progress Note) - Constitutional Vitals: Period Temp Pulse Resp BP Sys/Brock Pulse Ox Last 24 Hr 97.1 F-99.0 F 85-134 12-23 91-152/50-81 90-99 Exam: He is nontachypneic he has a fairly good respiratory effort. He continues to have a small slight pericardial rub is irregular rhythm at about 120 bpm. PMI is within normal limits. Sternotomy looks good. Abdominal exam is soft. No cords in his lower extremity. Result/EKG - Labs CBC & BMP: 11/29/16 03:22 11/29/16 03:22 Labs: Laboratory Results - last 24 hr 11/27/16 11/27/16 11/27/16 05:01 05:47 06:50 WBC RBC Hgb Hct MCV MCH MCHC RDW Plt Count MPV Neut % (Auto) Lymph % (Auto) [place] % (Auto) Eos % (Auto) Baso % (Auto) Neut # (Auto) Lymph # (Auto) [place] # (Auto) Eos # (Auto) Baso # (Auto) Immature Gran % Nucleated RBC % Immature Gran # Nucleated RBCs # Sodium Potassium Chloride Carbon Dioxide Anion Gap BUN Creatinine GFR Calculation BUN/Creatinine Ratio Glucose POC Glucose 88 89 100 Calculated Osmolality Calcium Magnesium 11/27/16 11/27/16 11/28/16 07:55 12:48 10:45 WBC RBC Hgb Hct MCV MCH MCHC RDW Plt Count MPV Neut % (Auto) Lymph % (Auto) [place] % (Auto) Eos % (Auto) Baso % (Auto) Neut # (Auto) Lymph # (Auto) [place] # (Auto) Eos # (Auto) Baso # (Auto) Immature Gran % Nucleated RBC % Immature Gran # Nucleated RBCs # Sodium Potassium Chloride Carbon Dioxide Anion Gap BUN Creatinine GFR Calculation BUN/Creatinine Ratio Glucose POC Glucose 112 H 114 H 166 H Calculated Osmolality Calcium Magnesium 11/28/16 11/28/16 11/28/16 11:45 16:08 19:24 WBC RBC Hgb Hct MCV MCH MCHC RDW Plt Count MPV Neut % (Auto) Lymph % (Auto) [place] % (Auto) Eos % (Auto) Baso % (Auto) Neut # (Auto) Lymph # (Auto) [place] # (Auto) Eos # (Auto) Baso # (Auto) Immature Gran % Nucleated RBC % Immature Gran # Nucleated RBCs # Sodium Potassium Chloride Carbon Dioxide Anion Gap BUN Creatinine GFR Calculation BUN/Creatinine Ratio Glucose POC Glucose 167 H 204 H 175 H Calculated Osmolality Calcium Magnesium 11/28/16 11/29/16 11/29/16 23:27 03:22 03:22 WBC 19.1 H RBC 2.58 L Hgb 7.8 L Hct 23.4 L MCV 90.7 MCH 30 MCHC 33.3 RDW 16.4 Plt Count 218 MPV 10.3 Neut % (Auto) 73.1 Lymph % (Auto) 12.0 L [place] % (Auto) 14.1 H Eos % (Auto) 0.0 Baso % (Auto) 0.1 Neut # (Auto) 14.0 H Lymph # (Auto) 2.3 [place] # (Auto) 2.7 H Eos # (Auto) 0.0 Baso # (Auto) 0.0 Immature Gran % 0.7 Nucleated RBC % 0.5 Immature Gran # 0.13 Nucleated RBCs # 0.10 Sodium 143 Potassium 4.1 Chloride 107 Carbon Dioxide 28 Anion Gap 12.1 BUN 17 Creatinine 0.80 GFR Calculation 119 BUN/Creatinine Ratio 21.00 H Glucose 146 H POC Glucose 191 H Calculated Osmolality 289.0 Calcium 7.4 L Magnesium 2.6 H 11/29/16 11/29/16 03:50 07:20 WBC RBC Hgb Hct MCV MCH MCHC RDW Plt Count MPV Neut % (Auto) Lymph % (Auto) [place] % (Auto) Eos % (Auto) Baso % (Auto) Neut # (Auto) Lymph # (Auto) [place] # (Auto) Eos # (Auto) Baso # (Auto) Immature Gran % Nucleated RBC % Immature Gran # Nucleated RBCs # Sodium Potassium Chloride Carbon Dioxide Anion Gap BUN Creatinine GFR Calculation BUN/Creatinine Ratio Glucose POC Glucose 170 H 226 H Calculated Osmolality Calcium Magnesium
--- NOTE | 2016-11-29 10:33 | XRay Report ---
XR chest 1V portable Indication: Status post chest tube removal. Comparison: Chest x-ray 11/29/2016; 0612 hours Technique: Portable AP chest was performed. Findings: Mediastinal drain and chest tubes have been removed. No pneumothorax is demonstrated. Chest is stable in appearance. Impression: 1. Stable appearance of the chest status post removal of mediastinal drains and chest tubes. 11/29/2016 10:30 AM PROCEDURE INTERPRETED AT [facility] DEPARTMENT OF RADIOLOGY Final Report Signed by: Dr. Roberto Carlos Baker
[2016-11-29] MEDS: AMIODARONE 200 MG TABLET PO SCH ×2 (11:33→20:07)
--- NOTE | 2016-11-29 13:48 | Anesthesia Procedures ---
Anesthesia Procedures - Arterial Line Time out performed arterial line: Yes Size (Gauge): 20 Technique used arterial line: guide wire technique Post-Procedure: line sutured into place, dry sterile dressing placed Patient tolerated procedure arterial line: well Complications art line: none Site: right
--- NOTE | 2016-11-29 13:51 | Anesthesia Procedures ---
Anesthesia Procedures - Central Venous Insert Monitors Applied: pulse oximetry, EKG, BP cuff, oxygen via MSBT: pulse oximetry, EKG, BP cuff, oxygen via Procedure: after sterile technique was performed as outlined above, , ultrasound guidance was used to identify vessel, 18G introducer needle was passed into vessel under direct visualizatio, 16G introducer needle was passed into vessel under direct visualizatio ([place] catether advanced ra.rv,pa to wedge position<cath advanced to 50cm)
[2016-11-29] MEDS: DILTIAZEM 30 MG TABLET PO SCH ×2 (14:15→20:07)
--- NOTE | 2016-11-29 14:49 | Anesthesia Procedures ---
Anesthesia Procedures - Central Venous Insert Monitors Applied: pulse oximetry, EKG, BP cuff, oxygen via MSBT: pulse oximetry, EKG, BP cuff, oxygen via Procedure: after sterile technique was performed as outlined above, , ultrasound guidance was used to identify vessel, 18G introducer needle was passed into vessel under direct visualizatio (SELDINGER TEGNIQUE was used to place introducer and advance swan ranjit catheter through ra. rv, pa to wedge position to a distance of 50cm at the skin,), catheter sutured into place and the ports flushed with NS/hepflush, sterlie dressing applied including the antibiotic disc, vital signs were stable throughout procedure, no apparent complications were noted, CXR to be obtained and read Ultrasound used: identify patency vessel, visualize needle entry to vessel Vein Cannulated: right internal juglar
[2016-11-29 18:37] LABS: Hematocrit 27.8 VOL% (42.0-52.0); Hemoglobin 9.3 GM/DL (14.0-18.0)
[2016-11-29] MEDS: AMIODARONE INJ 450 MG in DEXTROSE 5% 241 ML IV SCH (19:01)
[2016-11-29] MEDS: ATORVASTATIN 40 MG TABLET PO SCH (20:07)
[2016-11-29] MEDS ORDERED: DIGOXIN 0.5 MG/2 ML AMP IV ONE (22:01)
[2016-11-29] MEDS: DILTIAZEM INJ 100 MG in SODIUM CHLORIDE 0.9% 100 ML IV SCH (23:14)
[2016-11-30] MEDS: ALBUTEROL/IPRATROPIUM 3 ML NEB RESP TX SCH ×6 (02:24→19:36)
[2016-11-30] MEDS: INSULIN REGULAR 100 UNIT/ML SUBCUT SCH ×6 (02:42→20:46)
[2016-11-30 06:37] LABS: Basophils % 0.1 % (0.0-0.8); Eosinophils % 0.2 % (0.00-10.9); Hematocrit 26.1 VOL% (42.0-52.0); Hemoglobin 8.8 GM/DL (14.0-18.0); Immature Granulocytes % 0.7 %; Immature Granulocytes Absolute 0.11 #; Lymphocytes # 4.8 10*3/uL (1.4-4.0); Lymphocytes % 29.5 % (21.2-54.2); Mean Corpuscular HGB Conc 33.7 GM/DL (32-36); Mean Corpuscular Hemoglobin 31 PG (27-34); Mean Corpuscular Volume 91.3 FL (87-102); Mean Platelet Volume 10.2 FL (9.6-12.0); Neutrophils # 9.4 10*3/uL (1.4-7.4); Neutrophils % 57.5 % (38.7-73.9); Platelet Count 255 T/CUMM (130-400); Red Blood Count 2.86 MC/CUMM (3.8-5.5); Red Cell Distribution Width 15.6 % (9.3-17.3); White Blood Count 16.3 T/CUMM (4-12)
[2016-11-30 07:11] LABS: Calcium 7.2 MG/DL (8.5-10.1); Magnesium 2.2 MG/DL (1.8-2.4); Osmolality,Calculated 283.4 MOS/KG (273-304)
[2016-11-30] MEDS: AMIODARONE INJ 450 MG in DEXTROSE 5% 241 ML IV SCH (08:30)
[2016-11-30] MEDS ORDERED: FUROSEMIDE 40 MG/4 ML VIAL IV ONE (09:08)
--- NOTE | 2016-11-30 09:33 | Cardiothoracic Progress Note ---
Assessment and Plan (1) Coronary arteriosclerosis Status: Chronic Assessment and plan: Postoperative day 4 status post CABG AVR. Patient is progressing well without any problems. He is alert oriented 3. He continues to have A. fib this morning requiring Cardizem drip with amiodarone p.o. pills and beta-blockers, his rate is controlled. He is otherwise hemodynamically stable. We will get him out of bed and ambulate. I ordered an extra dose of Lasix today. Physical therapy and Occupational Therapy. We will plan to transfer to rehab/swing bed within the next 2-3 days after repeat the patient's A. fib is controlled and his physical activity is improved. Current Visit: Yes Exam (Progress Note) - Constitutional Vitals: Period Temp Pulse Resp BP Sys/Brock Pulse Ox Last 24 Hr 96.6 F-99.2 F 61-137 18-20 103-131/57-81 90-99 Result/EKG - Labs CBC & BMP: 11/30/16 05:48 11/30/16 05:48 Labs: Laboratory Results - last 24 hr 11/25/16 11/29/16 11/29/16 05:44 03:20 11:27 WBC RBC Hgb Hct MCV MCH MCHC RDW Plt Count MPV Neut % (Auto) Lymph % (Auto) [place] % (Auto) Eos % (Auto) Baso % (Auto) Neut # (Auto) Lymph # (Auto) [place] # (Auto) Eos # (Auto) Baso # (Auto) Immature Gran % Nucleated RBC % Immature Gran # Nucleated RBCs # Sodium Potassium Chloride Carbon Dioxide Anion Gap BUN Creatinine GFR Calculation BUN/Creatinine Ratio Glucose POC Glucose 279 H Calculated Osmolality Calcium Magnesium Blood Type A POSITIVE Antibody Screen Negative Crossmatch See Detail See Detail 11/29/16 11/29/16 11/29/16 16:35 18:33 20:06 WBC RBC Hgb 9.3 L Hct 27.8 L MCV MCH MCHC RDW Plt Count MPV Neut % (Auto) Lymph % (Auto) [place] % (Auto) Eos % (Auto) Baso % (Auto) Neut # (Auto) Lymph # (Auto) [place] # (Auto) Eos # (Auto) Baso # (Auto) Immature Gran % Nucleated RBC % Immature Gran # Nucleated RBCs # Sodium Potassium Chloride Carbon Dioxide Anion Gap BUN Creatinine GFR Calculation BUN/Creatinine Ratio Glucose POC Glucose 181 H 163 H Calculated Osmolality Calcium Magnesium Blood Type Antibody Screen Crossmatch 11/30/16 11/30/16 11/30/16 02:42 05:46 05:48 WBC 16.3 H RBC 2.86 L Hgb 8.8 L Hct 26.1 L MCV 91.3 MCH 31 MCHC 33.7 RDW 15.6 Plt Count 255 MPV 10.2 Neut % (Auto) 57.5 Lymph % (Auto) 29.5 [place] % (Auto) 12.0 Eos % (Auto) 0.2 Baso % (Auto) 0.1 Neut # (Auto) 9.4 H Lymph # (Auto) 4.8 H [place] # (Auto) 2.0 H Eos # (Auto) 0.0 Baso # (Auto) 0.0 Immature Gran % 0.7 Nucleated RBC % 2.4 Immature Gran # 0.11 Nucleated RBCs # 0.40 Sodium Potassium Chloride Carbon Dioxide Anion Gap BUN Creatinine GFR Calculation BUN/Creatinine Ratio Glucose POC Glucose 145 H 134 H Calculated Osmolality Calcium Magnesium Blood Type Antibody Screen Crossmatch 11/30/16 11/30/16 05:48 07:31 WBC RBC Hgb Hct MCV MCH MCHC RDW Plt Count MPV Neut % (Auto) Lymph % (Auto) [place] % (Auto) Eos % (Auto) Baso % (Auto) Neut # (Auto) Lymph # (Auto) [place] # (Auto) Eos # (Auto) Baso # (Auto) Immature Gran % Nucleated RBC % Immature Gran # Nucleated RBCs # Sodium 140 Potassium 4.0 Chloride 105 Carbon Dioxide 26 Anion Gap 13.0 BUN 22 H Creatinine 0.80 GFR Calculation 120 BUN/Creatinine Ratio 27.00 H Glucose 126 H POC Glucose 146 H Calculated Osmolality 283.4 Calcium 7.2 L Magnesium 2.2 Blood Type Antibody Screen Crossmatch Quality Measures - VTE Contraindication to Pharmacological VTE Prophylaxis: Active Bleeding - Stroke Symptom Onset Unknown: No Specialty Discharge - Follow Up or Referrals
[2016-11-30] MEDS: CHOLECALCIFEROL 1,000 UNIT TABLET PO SCH (09:56)
[2016-11-30] MEDS: CLOPIDOGREL 75 MG TABLET PO SCH (09:57)
[2016-11-30] MEDS: DILTIAZEM 30 MG TABLET PO SCH ×3 (09:57→20:49)
[2016-11-30] MEDS: ASPIRIN EC 325 MG TABLET PO SCH (09:57)
[2016-11-30] MEDS: FUROSEMIDE 40 MG TABLET PO SCH (09:57)
[2016-11-30] MEDS: AMIODARONE 200 MG TABLET PO SCH ×2 (09:57→20:49)
[2016-11-30] MEDS: LISINOPRIL 5 MG TABLET PO SCH (09:57)
[2016-11-30] MEDS: CARVEDILOL 25 MG TABLET PO SCH ×2 (09:58→20:47)
[2016-11-30] MEDS: CHLORHEXIDINE 0.12% ORAL RINSE 60 ML BOTTLE SWISH/SPIT SCH ×2 (09:59→20:54)
--- NOTE | 2016-11-30 11:17 | Cardiology Progress Note ---
Assessment and Plan (1) Obesity Status: Chronic Current Visit: Yes (2) Coronary arteriosclerosis Status: Chronic Assessment and plan: POD #4 S/P ANT-LAD Current Visit: Yes (3) Aortic stenosis, severe Status: Chronic Assessment and plan: POD #4 s/p 23 mm bioprosthetic AVR Current Visit: Yes (4) Hypertension Status: Chronic Current Visit: Yes (5) JORDAN (obstructive sleep apnea) Status: Chronic Current Visit: Yes (6) Diabetes Status: Chronic Current Visit: Yes Qualifiers: Diabetes mellitus type: type 2 Diabetes mellitus complication status: with unspecified complications (7) Dyslipidemia Status: Chronic Current Visit: Yes (8) Postoperative atrial fibrillation Status: Acute Assessment and plan: As above in HPI Current Visit: Yes Cardiology - PN: Subj Interval history: The patient's heart rate now has come under control with IV Cardizem and amiodarone. He is converting to oral agents today. Hopefully can get up and get around better. He seems a little bit more spontaneous today and seems to be feeling pretty good except for age fibrillation all is well Exam (Progress Note) - Constitutional Vitals: Period Temp Pulse Resp BP Sys/Brock Pulse Ox Last 24 Hr 96.6 F-99.2 F 61-137 18-20 103-131/57-81 90-99 General appearance: morbidly obese - Eye Eye exam: Present: EOMI Pupils: Present: [place] - Neck Neck exam: Present: normal inspection - Respiratory Respiratory exam: Present: clear to auscultation bilaterally (Fairly good effort ) - Cardiovascular Cardiovascular exam: Present: irregular rhythm - GI/Abdominal GI/Abdominal exam: Present: normal bowel sounds, ascites - Extremities Exam Extremities exam: Present: normal inspection - Back Exam Back exam: Present: normal inspection - Neurological Exam Neurological exam: Present: alert, oriented X3 Result/EKG - Labs CBC & BMP: 11/30/16 05:48 11/30/16 05:48 Labs: Laboratory Results - last 24 hr 11/25/16 11/29/16 11/29/16 05:44 03:20 11:27 WBC RBC Hgb Hct MCV MCH MCHC RDW Plt Count MPV Neut % (Auto) Lymph % (Auto) [place] % (Auto) Eos % (Auto) Baso % (Auto) Neut # (Auto) Lymph # (Auto) [place] # (Auto) Eos # (Auto) Baso # (Auto) Immature Gran % Nucleated RBC % Immature Gran # Nucleated RBCs # Sodium Potassium Chloride Carbon Dioxide Anion Gap BUN Creatinine GFR Calculation BUN/Creatinine Ratio Glucose POC Glucose 279 H Calculated Osmolality Calcium Magnesium Blood Type A POSITIVE Antibody Screen Negative Crossmatch See Detail See Detail 11/29/16 11/29/16 11/29/16 16:35 18:33 20:06 WBC RBC Hgb 9.3 L Hct 27.8 L MCV MCH MCHC RDW Plt Count MPV Neut % (Auto) Lymph % (Auto) [place] % (Auto) Eos % (Auto) Baso % (Auto) Neut # (Auto) Lymph # (Auto) [place] # (Auto) Eos # (Auto) Baso # (Auto) Immature Gran % Nucleated RBC % Immature Gran # Nucleated RBCs # Sodium Potassium Chloride Carbon Dioxide Anion Gap BUN Creatinine GFR Calculation BUN/Creatinine Ratio Glucose POC Glucose 181 H 163 H Calculated Osmolality Calcium Magnesium Blood Type Antibody Screen Crossmatch 11/30/16 11/30/16 11/30/16 02:42 05:46 05:48 WBC 16.3 H RBC 2.86 L Hgb 8.8 L Hct 26.1 L MCV 91.3 MCH 31 MCHC 33.7 RDW 15.6 Plt Count 255 MPV 10.2 Neut % (Auto) 57.5 Lymph % (Auto) 29.5 [place] % (Auto) 12.0 Eos % (Auto) 0.2 Baso % (Auto) 0.1 Neut # (Auto) 9.4 H Lymph # (Auto) 4.8 H [place] # (Auto) 2.0 H Eos # (Auto) 0.0 Baso # (Auto) 0.0 Immature Gran % 0.7 Nucleated RBC % 2.4 Immature Gran # 0.11 Nucleated RBCs # 0.40 Sodium Potassium Chloride Carbon Dioxide Anion Gap BUN Creatinine GFR Calculation BUN/Creatinine Ratio Glucose POC Glucose 145 H 134 H Calculated Osmolality Calcium Magnesium Blood Type Antibody Screen Crossmatch 11/30/16 11/30/16 05:48 07:31 WBC RBC Hgb Hct MCV MCH MCHC RDW Plt Count MPV Neut % (Auto) Lymph % (Auto) [place] % (Auto) Eos % (Auto) Baso % (Auto) Neut # (Auto) Lymph # (Auto) [place] # (Auto) Eos # (Auto) Baso # (Auto) Immature Gran % Nucleated RBC % Immature Gran # Nucleated RBCs # Sodium 140 Potassium 4.0 Chloride 105 Carbon Dioxide 26 Anion Gap 13.0 BUN 22 H Creatinine 0.80 GFR Calculation 120 BUN/Creatinine Ratio 27.00 H Glucose 126 H POC Glucose 146 H Calculated Osmolality 283.4 Calcium 7.2 L Magnesium 2.2 Blood Type Antibody Screen Crossmatch Quality Measures - VTE Contraindication to Pharmacological VTE Prophylaxis: Active Bleeding - Stroke Symptom Onset Unknown: No Specialty Discharge - Follow Up or Referrals
[2016-11-30] MEDS: ATORVASTATIN 40 MG TABLET PO SCH (20:47)
[2016-12-01] MEDS: ALBUTEROL/IPRATROPIUM 3 ML NEB RESP TX SCH ×6 (00:14→20:07)
[2016-12-01] MEDS: INSULIN REGULAR 100 UNIT/ML SUBCUT SCH ×6 (02:24→21:19)
[2016-12-01 04:45] LABS: Basophils % 0.1 % (0.0-0.8); Eosinophils # 0.3 10*3/uL (0.0-0.87); Eosinophils % 2.1 % (0.00-10.9); Hematocrit 26.7 VOL% (42.0-52.0); Hemoglobin 8.9 GM/DL (14.0-18.0); Immature Granulocytes % 0.7 %; Lymphocytes % 26.6 % (21.2-54.2); Mean Corpuscular HGB Conc 33.3 GM/DL (32-36); Mean Corpuscular Hemoglobin 30 PG (27-34); Mean Corpuscular Volume 90.8 FL (87-102); Mean Platelet Volume 9.8 FL (9.6-12.0); Monocytes % 13.2 % (1.7-12.7); NRBC # 0.34 10*3/uL; Neutrophils # 8.6 10*3/uL (1.4-7.4); Neutrophils % 57.3 % (38.7-73.9); Platelet Count 286 T/CUMM (130-400); Red Blood Count 2.94 MC/CUMM (3.8-5.5); Red Cell Distribution Width 15.4 % (9.3-17.3)
[2016-12-01 05:15] LABS: Calcium 7.8 MG/DL (8.5-10.1); Osmolality,Calculated 282.4 MOS/KG (273-304); Potassium 3.9 MMOL/L (3.5-5.1)
[2016-12-01] MEDS: CLOPIDOGREL 75 MG TABLET PO SCH (09:53)
[2016-12-01] MEDS: CHOLECALCIFEROL 1,000 UNIT TABLET PO SCH (09:54)
[2016-12-01] MEDS: LISINOPRIL 5 MG TABLET PO SCH (09:54)
[2016-12-01] MEDS: DILTIAZEM 30 MG TABLET PO SCH (09:55)
[2016-12-01] MEDS: AMIODARONE 200 MG TABLET PO SCH ×2 (09:55→21:17)
[2016-12-01] MEDS: CARVEDILOL 25 MG TABLET PO SCH ×2 (09:56→21:18)
[2016-12-01] MEDS: FUROSEMIDE 40 MG TABLET PO SCH (09:56)
[2016-12-01] MEDS: ASPIRIN EC 325 MG TABLET PO SCH (09:56)
[2016-12-01] MEDS: DILTIAZEM INJ 100 MG in SODIUM CHLORIDE 0.9% 100 ML IV SCH (10:36)
[2016-12-01] MEDS: AMIODARONE INJ 450 MG in DEXTROSE 5% 241 ML IV SCH ×2 (10:39→14:28)
[2016-12-01] MEDS: CHLORHEXIDINE 0.12% ORAL RINSE 60 ML BOTTLE SWISH/SPIT SCH ×2 (10:39→21:25)
[2016-12-01] MEDS ORDERED: DILTIAZEM CD 120 MG CAPSULE PO ONE (10:59)
--- NOTE | 2016-12-01 11:01 | Cardiology Progress Note ---
Assessment and Plan (1) Obesity Status: Chronic Current Visit: Yes Qualifiers: Obesity severity: morbid (2) Coronary arteriosclerosis Status: Chronic Assessment and plan: POD #6 S/P ANT-LAD Current Visit: Yes (3) Aortic stenosis, severe Status: Chronic Assessment and plan: POD #6 s/p 23 mm bioprosthetic AVR Current Visit: Yes (4) Hypertension Status: Chronic Current Visit: Yes (5) JORDAN (obstructive sleep apnea) Status: Chronic Current Visit: Yes (6) Diabetes Status: Chronic Current Visit: Yes Qualifiers: Diabetes mellitus type: type 2 Diabetes mellitus complication status: with unspecified complications (7) Dyslipidemia Status: Chronic Current Visit: Yes (8) Postoperative atrial fibrillation Status: Acute Assessment and plan: As above in HPI Current Visit: Yes Cardiology - PN: Subj Interval history: Mr. Kam is not to bright today. He states he feels poorly. He has been having some chest discomfort with A. fib and RVR. The patient has had rapid ventricular response with age fibrillation just less than 48 hours. He has not been anticoagulated due to his risk of bleeding perioperatively. I discussed with Dr. TEVIN Crain. We will initiate anticoagulation and try to slow his heart rate down. He has been on amiodarone due to difficulty controlling rate. Hopefully he will spontaneously convert on his own. I will hold him n.p.o. after midnight. If he does not spontaneously convert and continues to have RVR consider urgent DC cardioversion in the interim however now he is having symptoms that have been improved with better rate control. If we can control his right and/or he can remain asymptomatic it would be best to have transesophageal echo. Although he has had atrial fibrillation a relatively short period time he is perioperative and at high risk for increase clotting. I discussed with the patient he voiced understanding. We have increased his Cardizem to the highest rate that can be run on the floor by hospital policy at 15 mg/h. I will increase his oral dosing regimen. Hopefully we can wean his Cardizem rather rapidly Exam (Progress Note) - Constitutional Vitals: Period Temp Pulse Resp BP Sys/Brock Pulse Ox Last 24 Hr 97.5 F-98.3 F 63-129 16-21 110-132/50-83 91-99 General appearance: morbidly obese - Head Head exam: Present: normal inspection - Respiratory Respiratory exam: Present: clear to auscultation bilaterally (Poor effort) - Cardiovascular Cardiovascular exam: Present: irregular rhythm (Rates about 120 when I examined him) - GI/Abdominal GI/Abdominal exam: Present: normal bowel sounds - Neurological Exam Neurological exam: Present: alert, oriented X3 - Psychiatric Psychiatric exam: Present: depressed, flat affect - Skin Skin exam: Present: normal color, warm, dry Result/EKG - Labs CBC & BMP: 12/01/16 04:15 12/01/16 04:15 Labs: Laboratory Results - last 24 hr 11/30/16 11/30/16 11/30/16 11:50 16:35 20:07 WBC RBC Hgb Hct MCV MCH MCHC RDW Plt Count MPV Neut % (Auto) Lymph % (Auto) [place] % (Auto) Eos % (Auto) Baso % (Auto) Neut # (Auto) Lymph # (Auto) [place] # (Auto) Eos # (Auto) Baso # (Auto) Immature Gran % Nucleated RBC % Immature Gran # Nucleated RBCs # Sodium Potassium Chloride Carbon Dioxide Anion Gap BUN Creatinine GFR Calculation BUN/Creatinine Ratio Glucose POC Glucose 145 H 136 H 179 H Calculated Osmolality Calcium Magnesium 12/01/16 12/01/16 12/01/16 00:00 03:50 04:15 WBC 15.0 H RBC 2.94 L Hgb 8.9 L Hct 26.7 L MCV 90.8 MCH 30 MCHC 33.3 RDW 15.4 Plt Count 286 MPV 9.8 Neut % (Auto) 57.3 Lymph % (Auto) 26.6 [place] % (Auto) 13.2 H Eos % (Auto) 2.1 Baso % (Auto) 0.1 Neut # (Auto) 8.6 H Lymph # (Auto) 4.0 [place] # (Auto) 2.0 H Eos # (Auto) 0.3 Baso # (Auto) 0.0 Immature Gran % 0.7 Nucleated RBC % 2.3 Immature Gran # 0.10 Nucleated RBCs # 0.34 Sodium Potassium Chloride Carbon Dioxide Anion Gap BUN Creatinine GFR Calculation BUN/Creatinine Ratio Glucose POC Glucose 134 H 142 H Calculated Osmolality Calcium Magnesium 12/01/16 12/01/16 04:15 07:32 WBC RBC Hgb Hct MCV MCH MCHC RDW Plt Count MPV Neut % (Auto) Lymph % (Auto) [place] % (Auto) Eos % (Auto) Baso % (Auto) Neut # (Auto) Lymph # (Auto) [place] # (Auto) Eos # (Auto) Baso # (Auto) Immature Gran % Nucleated RBC % Immature Gran # Nucleated RBCs # Sodium 140 Potassium 3.9 Chloride 105 Carbon Dioxide 26 Anion Gap 12.9 BUN 22 H Creatinine 0.90 GFR Calculation 114 BUN/Creatinine Ratio 24.00 H Glucose 121 H POC Glucose 118 H Calculated Osmolality 282.4 Calcium 7.8 L Magnesium 2.0 Quality Measures - VTE Contraindication to Pharmacological VTE Prophylaxis: Active Bleeding - Stroke Symptom Onset Unknown: No Specialty Discharge - Follow Up or Referrals
--- NOTE | 2016-12-01 11:10 | XRay Report ---
Exam: XR chest 1V portable Indication: Pleural effusion Comparison study: 11/29/2016 Findings: Cardiac silhouette is mildly enlarged, similar to prior. Median sternotomy wiring is similar to prior. There is minimal perihilar interstitial and airspace opacities noted bilaterally and minimal blunting of the left costophrenic angle which appears similar to prior. There is no pneumothorax. Impression: Cardiomegaly with similar right hilar and left basilar opacities may represent residual atelectasis/infiltrate and small left pleural effusion. PROCEDURE INTERPRETED AT [facility] DEPARTMENT OF RADIOLOGY Final Report Signed by: Braxton Jacob
[2016-12-01] MEDS: APIXABAN 5 MG TABLET PO SCH ×2 (11:23→21:18)
[2016-12-01] MEDS: DILTIAZEM CD 240 MG CAPSULE PO SCH (21:17)
[2016-12-01] MEDS: ATORVASTATIN 40 MG TABLET PO SCH (21:18)
[2016-12-02] MEDS: ALBUTEROL/IPRATROPIUM 3 ML NEB RESP TX SCH ×7 (01:04→23:31)
[2016-12-02] MEDS: INSULIN REGULAR 100 UNIT/ML SUBCUT SCH ×5 (04:49→20:58)
[2016-12-02 05:08] LABS: Basophils % 0.2 % (0.0-0.8); Eosinophils # 0.4 10*3/uL (0.0-0.87); Eosinophils % 3.3 % (0.00-10.9); Hematocrit 26.2 VOL% (42.0-52.0); Hemoglobin 8.7 GM/DL (14.0-18.0); Immature Granulocytes % 0.8 %; Lymphocytes # 3.6 10*3/uL (1.4-4.0); Lymphocytes % 27.3 % (21.2-54.2); Mean Corpuscular HGB Conc 33.2 GM/DL (32-36); Mean Corpuscular Hemoglobin 30 PG (27-34); Mean Corpuscular Volume 91.6 FL (87-102); Mean Platelet Volume 9.4 FL (9.6-12.0); Monocytes # 1.5 10*3/uL (0.11-0.8); Monocytes % 11.3 % (1.7-12.7); NRBC # 0.18 10*3/uL; Neutrophils # 7.5 10*3/uL (1.4-7.4); Neutrophils % 57.1 % (38.7-73.9); Platelet Count 319 T/CUMM (130-400); Red Blood Count 2.86 MC/CUMM (3.8-5.5); Red Cell Distribution Width 15.2 % (9.3-17.3); White Blood Count 13.1 T/CUMM (4-12)
[2016-12-02 05:48] LABS: Calcium 7.6 MG/DL (8.5-10.1); Osmolality,Calculated 278.7 MOS/KG (273-304); Potassium 4.1 MMOL/L (3.5-5.1)
[2016-12-02] MEDS: CHLORHEXIDINE 0.12% ORAL RINSE 60 ML BOTTLE SWISH/SPIT SCH ×2 (10:00→21:01)
--- NOTE | 2016-12-02 12:38 | Physician Query Form ---
CLICK EDIT DOCUMENT TO SELECT QUERY ANSWER --> OK --> SIGN Jenni Baker RN, CCDS Certified Clinical Gyroscopic Instrument Mechanic W) [phone] (f) [phone] [email or web address]: Make your selection(s) from the choices in EACH section by typing an "x" and enter comments in the comment section. Please use your independent medical judgment in providing your response. This request does not imply that any particular answer is desired or expected. CLINICAL INDICATORS: (Providers should not edit this section) The medical record indicates that the patient was admitted for CAD, had surgery , later developed " Postoperative atrial fibrillation" and was placed on IV Cardizem. Based on the above, could you clarify the appropriate diagnosis, if significant , that supports the above abnormalities and additional evaluation, monitoring, and/or treatment rendered: ( ) Postoperative AF is not a complication ( ) Postoperative AF is a complication (x ) Other, please specify: ( ) Clinically unable to determine COMMENTS: Patient had paroxysmal AF PLEASE ALSO DOCUMENT RESPONSE IN PROGRESS NOTES AND/OR DISCHARGE SUMMARY Use of terms such as suspected, likely, or probable (associated with a specific diagnosis that is being evaluated, monitored, or treated as if it exists) are acceptable and can be restated in the discharge summary if not ruled out. MTDD
[2016-12-02] MEDS: FUROSEMIDE 40 MG TABLET PO SCH (14:35)
[2016-12-02] MEDS: ASPIRIN EC 325 MG TABLET PO SCH (14:35)
[2016-12-02] MEDS: LISINOPRIL 5 MG TABLET PO SCH (14:35)
[2016-12-02] MEDS: CARVEDILOL 25 MG TABLET PO SCH ×2 (14:36→20:58)
[2016-12-02] MEDS: CLOPIDOGREL 75 MG TABLET PO SCH (14:36)
[2016-12-02] MEDS: AMIODARONE 200 MG TABLET PO SCH ×2 (14:36→20:58)
[2016-12-02] MEDS: APIXABAN 5 MG TABLET PO SCH ×2 (14:36→20:58)
[2016-12-02] MEDS: CHOLECALCIFEROL 1,000 UNIT TABLET PO SCH (14:38)
--- NOTE | 2016-12-02 14:43 | Cardiology Progress Note ---
Assessment and Plan (1) Coronary arteriosclerosis Status: Chronic Assessment and plan: See plan of care listed below. Current Visit: Yes (2) Aortic stenosis, severe Status: Chronic Assessment and plan: See plan of care listed below. Current Visit: Yes (3) Hypertension Status: Chronic Assessment and plan: See plan of care listed below. Current Visit: Yes (4) JORDAN (obstructive sleep apnea) Status: Chronic Assessment and plan: See plan of care listed below. Current Visit: Yes (5) Diabetes Status: Chronic Assessment and plan: See plan of care listed below. Current Visit: Yes Qualifiers: Diabetes mellitus type: type 2 Diabetes mellitus complication status: with unspecified complications (6) Postoperative atrial fibrillation Status: Acute Assessment and plan: See plan of care listed below. Current Visit: Yes Cardiology - PN: Subj Interval history: Zoning Engineer: Dr. Dugan SUMMARY : Mr. Kam is a 76 year old male followed by Dr. Dugan at [facility] who is had severe aortic stenosis for some time. PMH includes JORDAN (wears CPAP nightly). He had a episode of chest "burning" while lying in bed last week. He reports this concerned Dr. Dugan so he brought him in for heart catheterization to better evaluate his aortic stenosis. He had 80% proximal LAD stenosis and his aortic stenosis was felt to be critical. He was transferred here for bypass and AVR. Patient is now status post AVR and CABG November 26, 2016 with HUERTAS to LAD and aortic valve replacement with size 23 mm bioprosthetic valve. DICK was performed post surgery and revealed left ventricular ejection fraction of 55-60%. Newly placed aortic valve was well seated and functioning appropriately. Trace MR. November - Patient was seen and examined on the telemetry unit. He is doing well postoperatively and has been without complications for the most part. Today is postop day #6. He developed atrial fibrillation with rapid ventricular response November 29, 2016. Patient remains in atrial fibrillation. Rate is generally well controlled, only having rapid ventricular response with activity. At this point, we will continue patient's current plan of care. Will discontinue Plavix and continue Eliquis and aspirin in order to provide adequate stroke prevention. Patient Corby chest pain, heaviness and tightness as well as shortness of breath. Midsternal chest incision healing well without dehiscence or drainage. Vital signs are stable. Labs were reviewed. Electrolytes are stable. Will anticipate discharge to swing bed tomorrow. Further plan and addendum to follow per Dr. Connor. ASSESSMENT/PLAN: 1. SEVERE AORTIC STENOSIS - Patient is now status post AVR with bioprosthetic valve. Doing well postoperatively without complications. Continue current plan of care. 2. CORONARY ARTERIOSCLEROSIS - Clinically stable at present. Status post CABG with HUERTAS to LAD. Continue current plan of care. 3. HYPERTENSION - This is well controlled. Continue current plan of care. 4. JORDAN - CPAP nightly. 5. DIABETES - Continue current plan of care with sliding scale insulin. 6. ATRIAL FIBRILLATION WITH RAPID VENTRICULAR RESPONSE - New onset. At this point, we will continue to rate control with p.o. amiodarone, beta-demian and p.o. Cardizem. Case was discussed this with Dr. Connor and Dr. Rice. We will discontinue Plavix and continue aspirin and Eliquis. Further plan and addendum to follow per Dr. Connor. Exam (Progress Note) - Constitutional Vitals: Period Temp Pulse Resp BP Sys/Brock Pulse Ox Last 24 Hr 97.4 F-98.7 F 63-116 18-20 98-143/47-75 90-99 Exam: General: Appears well with no apparent distress. Pleasant and cooperative. Appears comfortable. HEENT: PERRL, normocephalic, atraumatic. Mucous membranes moist. No jaundice noted. Conjunctiva moist and clear, sclerae anicteric Neck: No JVD/HJR, no thyromegaly or lymphadenopathy noted. No carotid bruit appreciated Cardiac: Irregular rhythm. Tachycardia. Lungs: Clear to auscultation without accessory muscle use to assist the respiratory pattern. Abdomen: Soft, bowel sounds normoactive. Nontender and nondistended. No abdominal bruit or thrill noted. No masses noted. Extremities: No clubbing, cyanosis noted. No edema noted. Upper extremity pulses 2+. Lower extremity pulses 2+. Capillary refill less than 3 seconds. Skin: No unusual lesions or rashes. No skin breakdown appreciated. Midsternal chest incision healing well without any suture drainage. Neuro: Awake, alert and oriented 3. Moves all extremities well without hemiparesis or paralysis. No essential tremor is appreciated. Result/EKG - Labs CBC & BMP: 12/02/16 04:14 06/05/17 04:14 Lab Results: I have reviewed the past 24 hour labs Labs: Laboratory Results - last 24 hr 12/01/16 12/01/16 12/01/16 16:18 19:53 23:55 WBC RBC Hgb Hct MCV MCH MCHC RDW Plt Count MPV Neut % (Auto) Lymph % (Auto) [place] % (Auto) Eos % (Auto) Baso % (Auto) Neut # (Auto) Lymph # (Auto) [place] # (Auto) Eos # (Auto) Baso # (Auto) Immature Gran % Nucleated RBC % Immature Gran # Nucleated RBCs # Sodium Potassium Chloride Carbon Dioxide Anion Gap BUN Creatinine GFR Calculation BUN/Creatinine Ratio Glucose POC Glucose 128 H 119 H 134 H Calculated Osmolality Calcium Magnesium 12/02/16 12/02/16 12/02/16 04:02 04:14 04:14 WBC 13.1 H RBC 2.86 L Hgb 8.7 L Hct 26.2 L MCV 91.6 MCH 30 MCHC 33.2 RDW 15.2 Plt Count 319 MPV 9.4 L Neut % (Auto) 57.1 Lymph % (Auto) 27.3 [place] % (Auto) 11.3 Eos % (Auto) 3.3 Baso % (Auto) 0.2 Neut # (Auto) 7.5 H Lymph # (Auto) 3.6 [place] # (Auto) 1.5 H Eos # (Auto) 0.4 Baso # (Auto) 0.0 Immature Gran % 0.8 Nucleated RBC % 1.4 Immature Gran # 0.10 Nucleated RBCs # 0.18 Sodium 138 Potassium 4.1 Chloride 103 Carbon Dioxide 24 Anion Gap 15.1 H BUN 20 H Creatinine 0.80 GFR Calculation 120 BUN/Creatinine Ratio 25.00 H Glucose 109 H POC Glucose 117 H Calculated Osmolality 278.7 Calcium 7.6 L Magnesium 2.0 12/02/16 12/02/16 07:50 11:49 WBC RBC Hgb Hct MCV MCH MCHC RDW Plt Count MPV Neut % (Auto) Lymph % (Auto) [place] % (Auto) Eos % (Auto) Baso % (Auto) Neut # (Auto) Lymph # (Auto) [place] # (Auto) Eos # (Auto) Baso # (Auto) Immature Gran % Nucleated RBC % Immature Gran # Nucleated RBCs # Sodium Potassium Chloride Carbon Dioxide Anion Gap BUN Creatinine GFR Calculation BUN/Creatinine Ratio Glucose POC Glucose 112 H 120 H Calculated Osmolality Calcium Magnesium Quality Measures - VTE Contraindication to Pharmacological VTE Prophylaxis: Active Bleeding - Stroke Symptom Onset Unknown: No Specialty Discharge - Follow Up or Referrals
[2016-12-02] MEDS: DILTIAZEM INJ 100 MG in SODIUM CHLORIDE 0.9% 100 ML IV SCH ×2 (15:44→23:14)
[2016-12-02] MEDS: AMIODARONE INJ 450 MG in DEXTROSE 5% 241 ML IV SCH ×2 (15:45→21:11)
[2016-12-02] MEDS: ATORVASTATIN 40 MG TABLET PO SCH (20:57)
[2016-12-02] MEDS: DILTIAZEM CD 240 MG CAPSULE PO SCH (20:57)
[2016-12-02] MEDS: BISOPROLOL 5 MG TABLET PO SCH (23:22)
[2016-12-03] MEDS: ALBUTEROL/IPRATROPIUM 3 ML NEB RESP TX SCH ×3 (02:54→10:27)
[2016-12-03] MEDS: INSULIN REGULAR 100 UNIT/ML SUBCUT SCH ×4 (04:45→12:32)
[2016-12-03 05:37] LABS: Basophils % 0.1 % (0.0-0.8); Eosinophils # 0.4 10*3/uL (0.0-0.87); Eosinophils % 2.7 % (0.00-10.9); Hematocrit 26.2 VOL% (42.0-52.0); Hemoglobin 8.8 GM/DL (14.0-18.0); Immature Granulocytes % 0.8 %; Immature Granulocytes Absolute 0.11 #; Lymphocytes % 22.5 % (21.2-54.2); Mean Corpuscular HGB Conc 33.6 GM/DL (32-36); Mean Corpuscular Hemoglobin 31 PG (27-34); Mean Platelet Volume 8.9 FL (9.6-12.0); Monocytes # 1.6 10*3/uL (0.11-0.8); Monocytes % 11.8 % (1.7-12.7); NRBC # 0.14 10*3/uL; Neutrophils # 8.3 10*3/uL (1.4-7.4); Neutrophils % 62.1 % (38.7-73.9); Platelet Count 348 T/CUMM (130-400); Red Blood Count 2.88 MC/CUMM (3.8-5.5); Red Cell Distribution Width 15.5 % (9.3-17.3); White Blood Count 13.4 T/CUMM (4-12)
[2016-12-03 06:14] LABS: Calcium 8.2 MG/DL (8.5-10.1); Osmolality,Calculated 280.5 MOS/KG (273-304)
--- NOTE | 2016-12-03 08:02 | Discharge Summary ---
Hospital Course - Hospital Course Hospital Course: The patient was transferred from [place] after he had a cardiac cath showing severe proximal stenosis of the LAD as well as severe aortic stenosis. The patient was kept under observation here as he had a history of unstable angina and he was on Plavix. I decided to keep him under observation for 5 days for the Plavix effect to wean. On hospital day 5 I took him to surgery and CABG AVR was performed without any problems. The patient was then admitted to the ICU and he was kept intubated until the following day at which point he was extubated. Initially he had some confusion however he eventually on that day became alert oriented 3. Postoperative day 2 he was transferred to telemetry and he started taking diet. His pain was well-controlled. Chest tubes were removed. He started working with physical therapy and occupational therapy. It was initially difficult for him due to his body habitus. Postoperative day 4 and 5 he was noted to be in a fib with RVR initially. He was placed on amiodarone drip and he was given amiodarone boluses. Still did not respond so we started him on Cardizem drip. Eventually his rate was well controlled on postoperative day 5. Postoperative day 6 he was rate controlled and he converted back to sinus rhythm. Postoperative day 7 he was ready for discharge. Diagnosis - Discharge Diagnosis (1) Coronary arteriosclerosis Status: Chronic Specialty Discharge - Follow Up or Referrals Follow up with: Anselmo Ruiz [Physician] - Discharge Plan - Discharge Data Disposition: Disch/Xfer to Snf Condition at Discharge: Stable Discharge Diet: advance to your usual diet, diabetic diet, heart healthy, low fat, low cholesterol Activity: resume usual activities as tolerated Weight Bearing at Discharge: full weight bearing Driving: no restrictions Contact your physician if you experience:: fever over 101, Difficulty voiding, Nausea/Vomiting, Shortness of breath, Bleeding - Discharge Medications New Albuterol/Ipratropium Neb [Duoneb] 3 ml RESP TX RT Q4H Lisinopril [Prinivil] 5 mg PO DAILY tablet Amiodarone Tab [Cordarone Tab] 200 mg PO BID #90 tablet Amiodarone Tab [Cordarone Tab] 200 mg PO BID tablet Apixaban [Eliquis] 5 mg PO BID tablet Aspirin EC Tab 325 mg PO DAILY tablet Atorvastatin [Lipitor] 40 mg PO BEDTIME tablet Colchicine 0.6 mg PO DAILY #60 tablet Diltiazem Cd Cap [Cardizem CD] 240 mg PO BEDTIME capsule Furosemide Tab [Lasix Tab] 40 mg PO DAILY tablet HYDROcodone/ACETAMIN 5-325 [[place] 5-325] 1 tablet PO Q4H PRN tablet PRN Reason: Pain Moderate (4-7) Continue Krill Oil 2,500 mg PO BEDTIME Aspirin [Aspirin EC] 81 mg PO DAILY Cinnamon Bark [Cinnamon] 2,000 mg PO DAILY metFORMIN [Glucophage] 1,000 mg PO BID W/MEALS Cholecalciferol (Vitamin D3) [Vitamin D3] 1 capsule PO DAILY Carvedilol 25 mg PO BID Discontinued Minocycline [Minocin] 50 mg PO BID Clopidogrel Bisulfate [Clopidogrel] 75 mg PO DAILY Azithromycin [Azithromycin] 500 mg PO DAILY - Follow Up or Referral - Forms/Instructions Instructions: Aortic Valve Replacement (DC), How to Stop Smoking (GEN), Heart Healthy Diet (GEN), Cigarette Smoking and Your Health, Clinical Geneticist (GEN), Coronary Artery Bypass Graft, Clinical Geneticist (GEN), Sternal Precautions (GEN) Exam - Constitutional Vitals: Period Temp Pulse Resp BP Sys/Brock Pulse Ox Last 24 Hr 97.4 F-98.9 F 63-119 18-20 113-137/56-70 94-99 Discharge Results Procedures and tests throughout hospitalization: Pending Orders 12/04/16 04:00 BMP w/ Mg [Basic Metabolic Panel w/Mg] IN AM CBC [Comp Blood Count Auto Diff] IN AM 12/05/16 04:00 BMP w/ Mg [Basic Metabolic Panel w/Mg] IN AM CBC [Comp Blood Count Auto Diff] IN AM 12/06/16 04:00 BMP w/ Mg [Basic Metabolic Panel w/Mg] IN AM CBC [Comp Blood Count Auto Diff] IN AM Labs on day of discharge: Labs from last 24 hours 12/03/16 12/03/16 12/03/16 05:33 05:33 04:23 WBC 13.4 H RBC 2.88 L Hgb 8.8 L Hct 26.2 L MCV 91.0 MCH 31 MCHC 33.6 RDW 15.5 Plt Count 348 MPV 8.9 L Neut % (Auto) 62.1 Lymph % (Auto) 22.5 [place] % (Auto) 11.8 Eos % (Auto) 2.7 Baso % (Auto) 0.1 Neut # (Auto) 8.3 H Lymph # (Auto) 3.0 [place] # (Auto) 1.6 H Eos # (Auto) 0.4 Baso # (Auto) 0.0 Immature Gran % 0.8 Nucleated RBC % 1.0 Immature Gran # 0.11 Nucleated RBCs # 0.14 Sodium 139 Potassium 4.0 Chloride 104 Carbon Dioxide 24 Anion Gap 15.0 BUN 18 Creatinine 0.80 GFR Calculation 119 BUN/Creatinine Ratio 22.00 H Glucose 126 H POC Glucose 139 H Calculated Osmolality 280.5 Calcium 8.2 L Magnesium 2.0 12/02/16 12/02/16 12/02/16 23:40 19:38 15:07 WBC RBC Hgb Hct MCV MCH MCHC RDW Plt Count MPV Neut % (Auto) Lymph % (Auto) [place] % (Auto) Eos % (Auto) Baso % (Auto) Neut # (Auto) Lymph # (Auto) [place] # (Auto) Eos # (Auto) Baso # (Auto) Immature Gran % Nucleated RBC % Immature Gran # Nucleated RBCs # Sodium Potassium Chloride Carbon Dioxide Anion Gap BUN Creatinine GFR Calculation BUN/Creatinine Ratio Glucose POC Glucose 134 H 200 H 109 H Calculated Osmolality Calcium Magnesium 12/02/16 12/02/16 11:49 07:50 WBC RBC Hgb Hct MCV MCH MCHC RDW Plt Count MPV Neut % (Auto) Lymph % (Auto) [place] % (Auto) Eos % (Auto) Baso % (Auto) Neut # (Auto) Lymph # (Auto) [place] # (Auto) Eos # (Auto) Baso # (Auto) Immature Gran % Nucleated RBC % Immature Gran # Nucleated RBCs # Sodium Potassium Chloride Carbon Dioxide Anion Gap BUN Creatinine GFR Calculation BUN/Creatinine Ratio Glucose POC Glucose 120 H 112 H Calculated Osmolality Calcium Magnesium DS: Provider Date of admission: 11/21/16 17:57 Primary care physician: Ayesha Mckeon Attending physician on admission: Anselmo Ruiz Consults: 11/21/16 18:22 Consult to Dietitian [CONS] Routine Reason for Dietitian: Other Consult Comment: low salt, low cholesterol, diet 11/26/16 13:31 Consult to Occupational Therapy [CONS] Routine Reason for Occupational Therapy: Evaluate and Treat Start Therapy: Tomorrow Consult to Physical Therapy [CONS] Routine Reason for Physical Therapy: Evaluate and Treat Start Therapy: Tomorrow 11/26/16 21:09 Consult to Sleep Center [CONS] Routine Reason for Sleep Center: Other Consult Comment: sleep apnea score 7 11/27/16 15:18 Consult to Sleep Center [CONS] Routine Reason for Sleep Center: Sleep Center Physician Consult Comment: pt has CPAP machine 11/29/16 09:54 Consult to Case Mgmt/Social Srvs [CONS] Routine Reason for Case Mgmt/Social Srvs: Swingbed/SNF/Longterm 12/01/16 10:23 Consult to Physical Therapy [CONS] Routine Reason for Physical Therapy: Ambulation Consult Comment: DR RUIZ WANTS PATIENT TO BE WALKED TODAY AND UP TO CHAIR. Discharging clinician: Anselmo Ruiz Expected date of discharge: 12/03/16
[2016-12-03 08:16] VITALS: BP 158/69
--- NOTE | 2016-12-03 08:31 | Cardiology Progress Note ---
Assessment and Plan (1) Postoperative atrial fibrillation Status: Acute Assessment and plan: His post operative atrial fibrillation converted to sinus rhythm with rate controlling medications and amiodarone Will reduce his amiodarone to 200 mg p.o. twice daily for 30 days and consider stopping it--per Dr. Ranjeet Dugan He is tolerating the medications for rate control in atrial fib fairly well He will be going to swing bed/rehab for further increase in activity to be able to transition to home I conferred care with his physician, Dr. Anselmo Crain He will follow-up with his primary or nurse manager, Dr. Ranjeet Dugan Current Visit: Yes (2) Aortic stenosis, severe Status: Chronic Current Visit: Yes (3) Coronary arteriosclerosis Status: Chronic Current Visit: Yes (4) Diabetes Status: Chronic Current Visit: Yes Qualifiers: Diabetes mellitus type: type 2 Diabetes mellitus complication status: with unspecified complications (5) Dyslipidemia Status: Chronic Current Visit: Yes (6) Hypertension Status: Chronic Current Visit: Yes (7) JORDAN (obstructive sleep apnea) Status: Chronic Current Visit: Yes (8) Obesity Status: Chronic Current Visit: Yes Qualifiers: Obesity severity: morbid Cardiology - PN: Subj Interval history: No chest pain or shortness of breath. He does not feel much different now that he is in sinus rhythm. He continues to complain of some pain in his chest when he takes a deep breath. Exam (Progress Note) - Constitutional Vitals: Period Temp Pulse Resp BP Sys/Brock Pulse Ox Last 24 Hr 97.4 F-98.9 F 63-119 18-20 113-158/56-70 91-99 Exam: HEENT: Pupils equal, reactive to light and accommodation Neck: NoJVD or bruit Lungs clear to auscultation Heart: Regular rhythm rate with normal S1 and S2. Apical S4 Abdomen: No hepatosplenomegaly Spine/extremities: No clubbing, cyanosis, or edema Neuro: Nonfocal Psych: No depression or anxiety He does have tenderness to his mid chest where his surgical site is noted Result/EKG - Labs CBC & BMP: 12/03/16 05:33 12/03/16 05:33 Labs: Laboratory Results - last 24 hr 12/02/16 12/02/16 12/02/16 11:49 15:07 19:38 WBC RBC Hgb Hct MCV MCH MCHC RDW Plt Count MPV Neut % (Auto) Lymph % (Auto) [place] % (Auto) Eos % (Auto) Baso % (Auto) Neut # (Auto) Lymph # (Auto) [place] # (Auto) Eos # (Auto) Baso # (Auto) Immature Gran % Nucleated RBC % Immature Gran # Nucleated RBCs # Sodium Potassium Chloride Carbon Dioxide Anion Gap BUN Creatinine GFR Calculation BUN/Creatinine Ratio Glucose POC Glucose 120 H 109 H 200 H Calculated Osmolality Calcium Magnesium 12/02/16 12/03/16 12/03/16 23:40 04:23 05:33 WBC 13.4 H RBC 2.88 L Hgb 8.8 L Hct 26.2 L MCV 91.0 MCH 31 MCHC 33.6 RDW 15.5 Plt Count 348 MPV 8.9 L Neut % (Auto) 62.1 Lymph % (Auto) 22.5 [place] % (Auto) 11.8 Eos % (Auto) 2.7 Baso % (Auto) 0.1 Neut # (Auto) 8.3 H Lymph # (Auto) 3.0 [place] # (Auto) 1.6 H Eos # (Auto) 0.4 Baso # (Auto) 0.0 Immature Gran % 0.8 Nucleated RBC % 1.0 Immature Gran # 0.11 Nucleated RBCs # 0.14 Sodium Potassium Chloride Carbon Dioxide Anion Gap BUN Creatinine GFR Calculation BUN/Creatinine Ratio Glucose POC Glucose 134 H 139 H Calculated Osmolality Calcium Magnesium 12/03/16 12/03/16 05:33 07:35 WBC RBC Hgb Hct MCV MCH MCHC RDW Plt Count MPV Neut % (Auto) Lymph % (Auto) [place] % (Auto) Eos % (Auto) Baso % (Auto) Neut # (Auto) Lymph # (Auto) [place] # (Auto) Eos # (Auto) Baso # (Auto) Immature Gran % Nucleated RBC % Immature Gran # Nucleated RBCs # Sodium 139 Potassium 4.0 Chloride 104 Carbon Dioxide 24 Anion Gap 15.0 BUN 18 Creatinine 0.80 GFR Calculation 119 BUN/Creatinine Ratio 22.00 H Glucose 126 H POC Glucose 117 H Calculated Osmolality 280.5 Calcium 8.2 L Magnesium 2.0 Quality Measures - VTE Contraindication to Pharmacological VTE Prophylaxis: Active Bleeding - Stroke Symptom Onset Unknown: No Specialty Discharge - Follow Up or Referrals Follow up with: Anselmo Rice [Physician] - Ranjeet Dugan Jr. [Physician] - (A few weeks after getting out of swing bed/rehab. You can probably set it up for about 4 weeks from now.)
[2016-12-03] MEDS: LISINOPRIL 5 MG TABLET PO SCH (09:29)
[2016-12-03] MEDS: APIXABAN 5 MG TABLET PO SCH (09:29)
[2016-12-03] MEDS: FUROSEMIDE 40 MG TABLET PO SCH (09:29)
[2016-12-03] MEDS: AMIODARONE 200 MG TABLET PO SCH (09:30)
[2016-12-03] MEDS: ASPIRIN EC 325 MG TABLET PO SCH (09:30)
[2016-12-03] MEDS: CHOLECALCIFEROL 1,000 UNIT TABLET PO SCH (09:31)
[2016-12-03] MEDS: BISOPROLOL 5 MG TABLET PO SCH (09:31)
[2016-12-03] MEDS: CHLORHEXIDINE 0.12% ORAL RINSE 60 ML BOTTLE SWISH/SPIT SCH (09:33)
[2016-12-03] MEDS ORDERED: LACTULOSE 20 GM/30 ML UDCUP PO ONE (10:47)
[2016-12-03] MEDS ORDERED: SODIUM PHOSPHATE ENEMA 133 ML BOTTLE RECTAL ONE (10:48)
[2016-12-03] MEDS: AMIODARONE INJ 450 MG in DEXTROSE 5% 241 ML IV SCH (11:13)
[2016-12-03] MEDS ORDERED: AMIODARONE 200 MG TABLET PO SCH (21:00)
== END 2016-12-03 14:00 | DRG 220 ==
LOC: N.TELEN 17:57 → N.CVR 11-26 13:19 → N.ICU 11-27 14:33 → N.TELES 11-28 13:09
PROVIDERS: ADMIT Thoracic Surgery (Cardiothoracic Vascular Surgery); ATTEND Thoracic Surgery (Cardiothoracic Vascular Surgery)
PROC: CABGAVR (ICD-10-PCS; 2016-11-26 06:48)

== ENCOUNTER 2016-12-19 04:41 | Inpatient (IN) ==
[2016-12-19] MEDS ORDERED: cefTRIAXone 1,000 MG in SODIUM CHLORIDE 0.9% 100 ML IV STA (05:04)
--- NOTE | 2016-12-19 05:04 | Emergency Department Note ---
Arrival - Arrival ED Nursing Triage Note: EMS reports that patient stated that he began coughing very forcefully and became short of breath. Patient is 3 weeks status post CABG by Dr. Malcolm. Temp 102.4 upon triage. Respirations 24 with accessory muscle use noted. Patient recieved two albuterol neb treatments and one atrovent. Patient report improved ease of breathing upon unit receptionist. Patient has a history of HTN, DM, CAD. Patient takes eloquis blood thinner. 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 Mode of Arrival: Stretcher <Catrachito Baker - Last Filed: 12/19/16 05:02> <Satya Nagel - Last Filed: 12/19/16 08:29> - Arrival Chief Complaint: Shortness of Breath Stated Complaint: sob Time Seen by Provider: 12/19/16 04:51 - History of Present Illness HPI Narrative: Patient is 3 weeks status post valve replacement by Dr. Darwin marinelli and was discharged home yesterday. He was home tonight going to the bathroom when he stood up he began to cough and immediately became short of breath. He denies any new chest pain but states that the chest pain does occur when he coughs. He has nonproductive sputum. He does have associated fever. The patient has no swelling of the legs with pain in his legs. When the patient lay down flat his cough and worsened and they called the EMS to transport him to the hospital for further evaluation. (Catrachito Baker) Allergies/Adverse Reactions: Allergies Allergy/AdvReac Type Severity Reaction Status Date / Time Horse/Equine Containing Allergy Intermediate RASH Verified 11/21/16 18:31 Products Tyigyev-Tmn-Kuj Reductase AdvReac Intermediate Cramping Verified 11/21/16 18:31 Inhibitor of the Muscles Home Medications: Home Medications Medication Instructions Recorded Confirmed Type Carvedilol 25 mg PO BID 11/21/16 12/19/16 History Cholecalciferol (Vitamin D3) 1 capsule PO DAILY 11/21/16 12/19/16 History [Vitamin D3] Cinnamon Bark [Cinnamon] 2,000 mg PO DAILY 11/21/16 12/19/16 History Krill Oil 2,500 mg PO BEDTIME 11/21/16 12/19/16 History Amiodarone Tab [Cordarone Tab] 200 mg PO BID #90 tablet 12/03/16 12/19/16 Rx Apixaban [Eliquis] 5 mg PO BID tablet 12/03/16 12/19/16 Rx Aspirin EC Tab 325 mg PO DAILY tablet 12/03/16 12/19/16 Rx Atorvastatin [Lipitor] 40 mg PO BEDTIME tablet 12/03/16 12/19/16 Rx Colchicine 0.6 mg PO DAILY #60 tablet 12/03/16 12/19/16 Rx Diltiazem Cd Cap [Cardizem CD] 240 mg PO BEDTIME capsule 12/03/16 12/19/16 Rx HYDROcodone/ACETAMIN 5-325 [[place] 1 tablet PO Q4H PRN tablet 12/03/16 12/19/16 Rx 5-325] Lisinopril [Prinivil] 5 mg PO DAILY tablet 12/03/16 12/19/16 Rx Ciprofloxacin/Dexameth Otic 4 drop BOTH EARS BID bottle 12/18/16 12/19/16 Rx [Ciprodex Otic Susp] metFORMIN [Glucophage] 1,000 mg PO BID W/MEALS tablet 12/18/16 12/19/16 Rx Review of System - Review of System 12 point system: reviewed and no additional remarkable complaints except as stated <Catrachito Baker - Last Filed: 12/19/16 05:02> Medical,Surgical,& Family Hx - Medical History Cardio: History of: Cardiac Dysrhythmia, CAD, Hypertension, Valvular Heart Disease (Aortic valve stenosis) Neurology: History of: Migraine No history of: Seizures Endocrine: History of: Diabetes Mellitus (NIDDM), Dyslipidemia Respiratory: History of: Asthma, Obstructive Sleep Apnea Genitourinary: History of: Kidney Stones, Prostate Problems Musculoskeletal: History of: Back/Neck Problems, Degenerative Disk Disease, Herniated Disk, Musculoskeletal Problems No history of: Amputation Hematology: No history of: Blood Transfusion Reaction - Surgical History Cardiac Surgeries: Sugical HX of: Cardiac Catheterization, Cardiac Surgery ( CABG 1 and aortic valve replacement) Thoracic Surgeries: Patient denies;: Organ Transplant, Lobectomy Neurologic Surgeries: Patient denies: Neurologic Surgery HEENT Surgeries: Patient denies: Tonsilectomy & Adenoidectomy Abdominal Surgeries: Surgical HX of: Abdominal Surgery (spleen) Reproductive Surgeries: Patient denies;: Genitourinary Surgery - Family History Family History: Reports;: Family Diabetes, Family Heart Disease (Father had CABG ), Family Hypertension - Social History Smoking Status: Former smoker Frequency of Alcohol Use: None Type of Drug Use: None <Catrachito Baker - Last Filed: 12/19/16 05:02> Exam <Catrachito Baker - Last Filed: 12/19/16 05:02> <Satya Nagel - Last Filed: 12/19/16 08:29> Physical Examination: General: Patient is well-developed and well-nourished with no acute distress noted. HEENT: The extraocular muscles are intact. Oropharynx is moist. There is no erythema or exudate. The tympanic membranes are shiny bilaterally. Neck: There is no adenopathy. Full range of motion is noted without pain. The trachea is midline. No JVD is present. Lungs: There is normal excursion of the chest with the lungs demonstrate wheezing bilaterally. No subcostal retractions are present. There is no point tenderness present. Midline incision appears well-healing Heart: The heart has a regular rate and rhythm with no gallops or murmurs. It is difficult to hear the click of the valves due to the patient's breathing Abdomen: The abdomen is nontender and nondistended with no rebound, guarding, or masses. Bowel sounds are normal. Back: The back demonstrates a normal appearance with no evidence of trauma. Genitourinary: Not examined. Extremities: The extremities demonstrate no clubbing, cyanosis, or edema. The visualized range of motion is normal. They appear atraumatic. Neuro: Cranial nerves II through XII are checked and intact. There is no focal motor or sensory deficit seen in the extremities. Skin: Skin is warm and dry with no evidence of rash. (Catrachito Baker) Vital Signs: Vital Signs Temperature 99.8 F H 12/19/16 07:31 Pulse Rate 82 12/19/16 07:31 Respiratory Rate 18 12/19/16 07:31 Blood Pressure 93/58 12/19/16 07:31 O2 Sat by Pulse Oximetry 99 12/19/16 07:29 Course <Catrachito Baker - Last Filed: 12/19/16 05:02> <Satya Nagel - Last Filed: 12/19/16 08:29> - Reevaluation(s) Reevaluation #1: Advised patient he would require admission for heart failure, pneumonia, cystitis, and hyponatremia. (Satya Nagel) - Consultations Consultation #1: Dr. Malcolm was contacted and was in surgery and will return our call after surgery (Satya Nagel) Consultation #2: Discussed with Dr. Malcolm who we agreed this was not a surgical patient at this time and the hospitalist service will be consulted. (Satya Nagel) Consultation #3: The hospitalist service was consulted and they will admit the patient for further evaluation treatment. (Satya Nagel) Results <Catrachito Bkaer - Last Filed: 12/19/16 05:02> - Labs CBC & BMP: 12/19/16 05:12 12/19/16 05:12 - Diagnostic Findings Procedure: Chest x-ray: image reviewed by me, report reviewed by me ( Cardiomegaly with recent median sternotomy noted as well as bilateral infiltrates/edema with left pleural effusion) <Satya Nagel - Last Filed: 12/19/16 08:29> - Labs Labs: I have reviewed the laboratory noted the significantly depressed sodium as well as a negative cardiac's. I have also noted the increased BNP and infected urine. (Satya Nagel) Disposition <Catrachito Baker - Last Filed: 12/19/16 05:02> Case discussed with: patient, patient's family Time of Disposition: 08:29 <Satya Nagel - Last Filed: 12/19/16 08:29> Clinical Impression: Pneumonia, Congestive failure, Cystitis, Recent aortic valve replacement, Recent CABG, Hyponatremia Disposition: Still a Patient Condition: Guarded
[2016-12-19] MEDS: ALBUTEROL 2.5 MG/3 ML NEB RESP TX SCH (05:21)
[2016-12-19] MEDS ORDERED: cefTRIAXone 1,000 MG VIAL ONE (05:22)
[2016-12-19 05:37] LABS: Allen Test Positive
[2016-12-19 05:37] LABS: Basophils % 0.4 % (0.0-0.8); Eosinophils # 0.1 10*3/uL (0.0-0.87); Eosinophils % 0.5 % (0.00-10.9); Hematocrit 31.7 VOL% (42.0-52.0); Immature Granulocytes % 0.3 %; Immature Granulocytes Absolute 0.03 #; Lymphocytes # 0.7 10*3/uL (1.4-4.0); Lymphocytes % 6.7 % (21.2-54.2); Mean Corpuscular HGB Conc 34.7 GM/DL (32-36); Mean Corpuscular Hemoglobin 29 PG (27-34); Mean Corpuscular Volume 83.6 FL (87-102); Mean Platelet Volume 8.9 FL (9.6-12.0); Monocytes # 0.7 10*3/uL (0.11-0.8); Monocytes % 6.4 % (1.7-12.7); Neutrophils # 9.2 10*3/uL (1.4-7.4); Neutrophils % 85.7 % (38.7-73.9); Platelet Count 668 T/CUMM (130-400); Red Blood Count 3.79 MC/CUMM (3.8-5.5); Red Cell Distribution Width 14.5 % (9.3-17.3); White Blood Count 10.8 T/CUMM (4-12)
[2016-12-19 05:38] LABS: ABG Base Excess 4.4 MMOL/L (-2.5-2.5); ABG Oxygen Saturation 94.5 % (95-100); ABG PCO2 33.1 MM HG (35-48); ABG PH 7.529 (7.35-7.45)
[2016-12-19] MEDS ORDERED: ACETAMINOPHEN 500 MG TABLET PO STA (05:51)
[2016-12-19] MEDS ORDERED: ACETAMINOPHEN 500 MG TABLET ONE (05:53)
[2016-12-19] MEDS ORDERED: FUROSEMIDE 40 MG/4 ML VIAL IV STA (06:37)
[2016-12-19] MEDS ORDERED: ALBUTEROL/IPRATROPIUM 3 ML NEB RESP TX STA (06:37)
[2016-12-19] MEDS ORDERED: KETOROLAC 30 MG/1 ML VIAL IV STA (06:37)
[2016-12-19] MEDS ORDERED: KETOROLAC 30 MG/1 ML VIAL ONE (06:58)
[2016-12-19] MEDS ORDERED: FUROSEMIDE 40 MG/4 ML VIAL ONE (06:58)
[2016-12-19 07:14] LABS: Albumin 3.1 G/DL (3.4-5.0); Bilirubin,Total 1.1 MG/DL (0.2-1.0); Calcium 7.6 MG/DL (8.5-10.1); Magnesium 1.1 MG/DL (1.8-2.4); Osmolality,Calculated 245.9 MOS/KG (273-304); Potassium 4.1 MMOL/L (3.5-5.1); Total Protein 6.8 G/DL (6.4-8.3)
[2016-12-19 07:39] LABS: Troponin I Only 0.022 NG/ML (0.00-0.045)
--- NOTE | 2016-12-19 07:54 | XRay Report ---
Portable chest Date: 12/19/2016 Clinical history: Shortness of breath Comparison: 12/01/2016 Technique: Portable AP sitting chest Findings: Stable cardiomegaly with prior median sternotomy. Persistent diffuse parenchymal findings at the lung bases with small left pleural effusion. Stable mediastinum and osseous structures. Impression: Status post median sternotomy with stable atelectasis/infiltration/edema at the lung bases with small left pleural effusion. PROCEDURE INTERPRETED AT [facility] DEPARTMENT OF RADIOLOGY Final Report Signed by: Dr. Veriot Bedolla
[2016-12-19 07:58] LABS: Apearance,Urine CLOUDY (Clear); Bacteria,Urine Moderate /HPF (Few); Bilirubin,Urine Negative (Negative); Blood, Urine Large mg/dL (Negative); Glucose,Urine (UA) Negative (Negative); Hyaline Casts,Urine 2 /LPF (0-3); Ketones,Urine 20 mg/dL (Negative); Mucus,Urine Occasional /LPF (Occasional); Nitrite,Urine Negative (Negative); Protein,Urine 30 MG/DL; RBC,Urine 184 /HPF (0-4); Urine Color Yellow (Yellow); Urine Specific Gravity 1.012 (1.001-1.035); Urine Urobilinogen < 2.0 EU/DL (0.2-1.0); WBC,Urine 4 /HPF (0-6)
[2016-12-19] MEDS ORDERED: AZITHROMYCIN INJ 500 MG in SODIUM CHLORIDE 0.9% 250 ML IV STA (08:07)
[2016-12-19] MEDS ORDERED: AZITHROMYCIN 500 MG VIAL IV ONE (08:22)
--- NOTE | 2016-12-19 08:26 | EKG Report ---
Stationary ECG Study [facility] ER Test Date: 12/19/2016 8:16:45 AM Pat Name: ADRI TORRE Department: 2 Room: ER Gender: Male [employer] Manager: : 1940 Requested by: Order Number: [id number] Reading MD: MERCY FRANCO Intervals [place] Rate: 77 P: 55 [place]: 181 QRS: 38 QRSD: 133 T: 89 QT: 434 QTc: 466 Interpretive Statements SINUS RHYTHM INTRAVENTRICULAR CONDUCTION DELAY POOR R-WAVE PROGRESSION Electronically Signed On 12-19-16 15:41:21 CDT by MERCY FRANCO [email or web address]
--- NOTE | 2016-12-19 09:21 | Hospitalist History & Physical ---
<Anurag Coto - Last Filed: 12/19/16 09:18> Assessment and Plan (1) Dyspnea Status: Acute Assessment and plan: Supplemental O2 as needed. Chest XR showed 'stable atelectasis/infiltration/ edema in the lung bases with small left pleural effusion'. Diurese patient. Consult cardiology/cardiothoracic surgery Current Visit: Yes (2) Status post aortic valve replacement Status: Acute Assessment and plan: Status post aortic valve replacement on 11/26. Current Visit: No (3) Status post coronary artery bypass graft Status: Acute Assessment and plan: s/p coronary artery bypass graft on 11/26. Current Visit: No (4) Diabetes Status: Chronic Assessment and plan: Accu-Cheks before meals at bedtime. Sliding scale insulin initiated. Hemoglobin A1c ordered. Will monitor. Current Visit: No (5) Dyslipidemia Status: Chronic Assessment and plan: Lipid panel in the am. Current Visit: No (6) Hypertension Status: Chronic Assessment and plan: Resume medications. Current Visit: No (7) JORDAN (obstructive sleep apnea) Status: Chronic Current Visit: No (8) Obesity Status: Chronic Current Visit: No (9) Hypomagnesemia Status: Acute Assessment and plan: Replace magnesium. Current Visit: Yes History of Present Illness Chief complaint: Shortness of breath History of present illness: Mr. Kam is a 76 year old obese white male status post aortic valve replacement and coronary artery bypass graft on 11/26 with a history of hypertension, diabetes, dyslipidemia, atrial fibrillation, coronary artery disease, and aortic stenosis. He presents to the ED today with complaints of shortness of breath. The patient is accompanied by his son who is present at the bedside. Mr. Kam was just discharged on 12/18 from the [facility]. Patient's son states that last night around 9, the patient became very nauseous and began to vomit. This issue resolved later around 3 AM the patient woke up and began to cough and became short of breath. This episode lasted 30-45 minutes before they alerted EMS. When the EMT arrived at their home, the patient's saturations were noted a 86-88% on room air. Patient was placed on supplemental O2 and sats increased to 96%. The patient was brought in for further evaluation. In the ED patient was noted to have a temperature of 102.4. Chest x-ray revealed small pleural effusion. Other labs revealed to note were BNP of 189, NA 122, K 4.1, chloride 80, BUN 13 , creatinine 1.6, calcium 7.6, magnesium 1.1. Patient will be admitted to the hospitalist service for further evaluation and treatment. Home Medications Medication Instructions Recorded Confirmed Type Carvedilol 25 mg PO BID 11/21/16 12/19/16 History Cholecalciferol (Vitamin D3) 1 capsule PO DAILY 11/21/16 12/19/16 History [Vitamin D3] Cinnamon Bark [Cinnamon] 2,000 mg PO DAILY 11/21/16 12/19/16 History Krill Oil 1,250 mg PO BEDTIME 11/21/16 12/19/16 History Amiodarone Tab [Cordarone Tab] 200 mg PO BID #90 tablet 12/03/16 12/19/16 Rx Apixaban [Eliquis] 5 mg PO BID tablet 12/03/16 12/19/16 Rx Atorvastatin [Lipitor] 40 mg PO BEDTIME tablet 12/03/16 12/19/16 Rx Colchicine 0.6 mg PO DAILY #60 tablet 12/03/16 12/19/16 Rx HYDROcodone/ACETAMIN 5-325 [[facility] 1 tablet PO Q4H PRN tablet 12/03/16 12/19/16 Rx 5-325] Lisinopril [Prinivil] 5 mg PO DAILY tablet 12/03/16 12/19/16 Rx Ciprofloxacin/Dexameth Otic 4 drop BOTH EARS BID bottle 12/18/16 12/19/16 Rx [Ciprodex Otic Susp] metFORMIN [Glucophage] 1,000 mg PO BID W/MEALS tablet 12/18/16 12/19/16 Rx Aspirin [Ecotrin] 81 mg PO DAILY 12/19/16 12/19/16 History Clopidogrel [Plavix] 75 mg PO DAILY 12/19/16 12/19/16 History Minocycline [Minocin] 50 mg PO DAILY 12/19/16 12/19/16 History dilTIAZem HCl [Cartia XT] 240 mg PO BEDTIME 12/19/16 12/19/16 History Allergies Allergy/AdvReac Type Severity Reaction Status Date / Time Horse/Equine Containing Allergy Intermediate RASH Verified 11/21/16 18:31 Products Laaodwk-Bin-Pxd Reductase AdvReac Intermediate Cramping Verified 11/21/16 18:31 Inhibitor of the Muscles Medical,Surgical,& Family Hx - Medical History Cardio: History of: Cardiac Dysrhythmia, CAD, Hypertension, Valvular Heart Disease (Aortic valve stenosis) Neurology: History of: Migraine No history of: Seizures Endocrine: History of: Diabetes Mellitus (NIDDM), Dyslipidemia Respiratory: History of: Asthma, Obstructive Sleep Apnea Genitourinary: History of: Kidney Stones, Prostate Problems Musculoskeletal: History of: Back/Neck Problems, Degenerative Disk Disease, Herniated Disk, Musculoskeletal Problems No history of: Amputation Hematology: No history of: Blood Transfusion Reaction - Surgical History Cardiac Surgeries: Sugical HX of: Cardiac Catheterization, Cardiac Surgery ( CABG 1 and aortic valve replacement) Thoracic Surgeries: Patient denies;: Organ Transplant, Lobectomy Neurologic Surgeries: Patient denies: Neurologic Surgery HEENT Surgeries: Patient denies: Tonsilectomy & Adenoidectomy Abdominal Surgeries: Surgical HX of: Abdominal Surgery (spleen) Reproductive Surgeries: Patient denies;: Genitourinary Surgery - Family History Family History: Reports;: Family Diabetes, Family Heart Disease (Father had CABG ), Family Hypertension - Social History Smoking Status: Former smoker Frequency of Alcohol Use: None Type of Drug Use: None Marital Status: Single Lives With:: Alone Functional capacity: uses cane/walker - Constitutional Constitutional: Present: fever(s), weakness - EENT Eyes: Present: loss of vision, requires corrective lense. Absent: blurry vision Ears: Present: decreased hearing (deaf in left ear). Absent: ear discharge Nose, mouth and throat: Absent: epistaxis, headache(s) - Cardiovascular Cardiovascular: Present: dyspnea, dyspnea on exertion, edema. Absent: chest pain at rest - Gastrointestinal Gastrointestinal: Present: nausea, vomiting. Absent: abdominal pain - Genitourinary Genitourinary: Present: other (decrease in urine output overnight). Absent: difficulty urinating - Musculoskeletal Musculoskeletal: Absent: back pain - Neurological Neurological: Absent: confusion, dizziness - Psychiatric Psychiatric: Absent: anxiety, depression - Endocrine Endocrine: Present: fatigue, heat intolerance - Hematologic/Lymphatic Hematologic/Lymphatic: Absent: easy bleeding Exam - Constitutional Vitals: Period Temp Pulse Resp BP Sys/Brock Pulse Ox Last 24 Hr 99.8 F-102.4 F 79-91 18-26 93-154/49-66 94-100 General appearance: no acute distress, over weight - Head Head exam: Present: normal inspection, normocephalic - Eye Eye exam: Present: EOMI. Absent: scleral icterus Pupils: Present: [place]. Absent: fixed - ENT ENT exam: Present: normal exam - Neck Neck exam: Present: normal inspection. Absent: thyromegaly - Respiratory Respiratory exam: Present: wheezes (audible) - Cardiovascular Cardiovascular exam: Present: regular rate and rhythm - GI/Abdominal GI/Abdominal exam: Present: normal bowel sounds, soft. Absent: tenderness - Extremities Exam Extremities exam: Present: normal capillary refill, full ROM, edema (trace edema noted to ankles.) - Neurological Exam Neurological exam: Present: alert, oriented X3 - Psychiatric Psychiatric exam: Present: normal affect, normal mood - Skin Skin exam: Present: normal color, warm Results - Labs CBC & BMP: 12/19/16 05:12 12/19/16 05:12 Lab Results: I have reviewed the past 24 hour labs - Diagnostic Findings Procedure: Chest x-ray: report reviewed by me (Stable atelectasis/infiltration/ edema in lung bases with mild left pleural effusion) <Loulou Kessler - Last Filed: 12/19/16 11:19> Assessment and Plan (1) Hypotension Status: Acute Assessment and plan: Patient on admission was 84 systolic while I was at bedside. We will continue him a return but hold all other blood pressure medicine Current Visit: Yes (2) COPD exacerbation Status: Acute Assessment and plan: duonebs, low dose steroids Current Visit: Yes (3) JORDAN (obstructive sleep apnea) Status: Chronic Assessment and plan: cpap at night Current Visit: No (4) Diabetes Status: Chronic Assessment and plan: isc Current Visit: No (5) Obesity Status: Chronic Current Visit: No (6) Postoperative atrial fibrillation Status: Acute Assessment and plan: Continue amiodarone and Eliquis Current Visit: No (7) Status post coronary artery bypass graft Status: Acute Assessment and plan: Will get echocardiogram looking for pericardial effusion. Dr. Rice will follow Current Visit: No (8) Hypomagnesemia Status: Acute Assessment and plan: will need 4 gram IV mag Current Visit: Yes (9) Hyponatremia Status: Acute Assessment and plan: due to severe dehydration, NS bolus and ns at 110 Current Visit: Yes (10) Acute renal failure Status: Acute Assessment and plan: due to dehydration. Current Visit: Yes History of Present Illness History of present illness: Mr. Kam is a 76 year old male seen and examined. Patient history and physical reviewed and edited. Patient looks very dehydrated. Hold blood pressure meds except amiodarone. Plavix was discontinued after surgery. Will get echo looking for pericardial effusion. Patient has not been wearing his CPAP during his admission or during rehab. I asked the son to bring it in so he can wear it while he is here. cardiology does not need to see this patient. - Musculoskeletal Musculoskeletal: Absent: joint swelling - Hematologic/Lymphatic Hematologic/Lymphatic: Absent: easy bruising Exam - Constitutional Vitals: Period Temp Pulse Resp BP Sys/Brock Pulse Ox Last 24 Hr 98.1 F-102.4 F 76-91 18-26 86-154/43-66 94-100 - Respiratory Respiratory exam: Present: decreased breath sounds - Neurological Exam Neurological exam: Present: CN II-XII intact, reflexes normal. Absent: motor sensory deficit Results - Labs CBC & BMP: 12/19/16 05:12 12/19/16 05:12
--- NOTE | 2016-12-19 09:28 | EKG Report ---
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
[2016-12-19] MEDS ORDERED: MAGNESIUM SULF RIDER 4 GM in PREMIX 1 EACH IV PRN (10:02)
[2016-12-19] MEDS ORDERED: GLUCAGON 1 MG VIAL IM PRN (10:02)
[2016-12-19] MEDS ORDERED: MAGNESIUM SULF RIDER 2 GM in PREMIX 1 EACH IV PRN (10:02)
[2016-12-19] MEDS ORDERED: ACETAMINOPHEN 325 MG TABLET PO PRN (10:02)
[2016-12-19] MEDS ORDERED: DEXTROSE 50% 25 GM/50 ML VIAL IV PRN (10:02)
[2016-12-19] MEDS ORDERED: ONDANSETRON 4 MG/2 ML VIAL IV PRN (10:02)
[2016-12-19] MEDS ORDERED: COLCHICINE 0.6 MG TABLET PO SCH (10:02)
[2016-12-19] MEDS ORDERED: SODIUM CHLORIDE 0.9% 500 ML IV ONE (10:43)
[2016-12-19] MEDS ORDERED: CLOPIDOGREL 75 MG TABLET PO SCH (11:00)
[2016-12-19] MEDS: APIXABAN 5 MG TABLET PO SCH ×2 (11:01→21:15)
[2016-12-19] MEDS: ASPIRIN EC 81 MG TABLET PO SCH (11:01)
[2016-12-19] MEDS: SODIUM CHLORIDE 0.9% 1,000 ML IV SCH ×2 (11:02→21:14)
--- NOTE | 2016-12-19 11:03 | Cardiology Consult Note ---
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 Kam is a 76 year old male followed by Dr. Dugan at [facility] who is had severe aortic stenosis for some time. PMH includes JORDAN (wears CPAP nightly). He had a episode of chest "burning" while lying in bed last week. He reports this concerned Dr. Dugan so he brought him in for heart catheterization to better evaluate his aortic stenosis. He had 80% proximal LAD stenosis and his aortic stenosis was felt to be critical. He was transferred here for bypass and AVR. Patient is now status post AVR and CABG November 26, 2016 with HUERTAS to LAD and aortic valve replacement with size 23 mm bioprosthetic valve. DICK was performed post surgery and revealed left ventricular ejection fraction of 55-60% . Newly placed aortic valve was well seated and functioning appropriately. Trace MR. Mr. Kam is a 76 year old male ASSESSMENT/PLAN: 1. SEVERE AORTIC STENOSIS - Patient is now status post AVR with bioprosthetic valve. Doing well postoperatively without complications. Continue current plan of care. 2. CORONARY ARTERIOSCLEROSIS - Clinically stable at present. Status post CABG with HUERTAS to LAD. Continue current plan of care. 3. HYPERTENSION - This is well controlled. Continue current plan of care. 4. JORDAN - CPAP nightly. 5. DIABETES - Continue current plan of care with sliding scale insulin. 6. ATRIAL FIBRILLATION WITH RAPID VENTRICULAR RESPONSE - New onset. At this point, we will continue to rate control with p.o. amiodarone, beta-demian and p.o. Cardizem. Case was discussed this with Dr. Connor and Dr. Rice. We will discontinue Plavix and continue aspirin and Eliquis. Further plan and addendum to follow per Dr. Cnonor. CC: Loulou Kessler MD - Home Medications and Allergies Home Medications: Home Medications Medication Instructions Recorded Confirmed Type Carvedilol 25 mg PO BID 11/21/16 12/19/16 History Cholecalciferol (Vitamin D3) 1 capsule PO DAILY 11/21/16 12/19/16 History [Vitamin D3] Cinnamon Bark [Cinnamon] 2,000 mg PO DAILY 11/21/16 12/19/16 History Krill Oil 1,250 mg PO BEDTIME 11/21/16 12/19/16 History Amiodarone Tab [Cordarone Tab] 200 mg PO BID #90 tablet 12/03/16 12/19/16 Rx Apixaban [Eliquis] 5 mg PO BID tablet 12/03/16 12/19/16 Rx Atorvastatin [Lipitor] 40 mg PO BEDTIME tablet 12/03/16 12/19/16 Rx Colchicine 0.6 mg PO DAILY #60 tablet 12/03/16 12/19/16 Rx HYDROcodone/ACETAMIN 5-325 [[facility] 1 tablet PO Q4H PRN tablet 12/03/16 12/19/16 Rx 5-325] Lisinopril [Prinivil] 5 mg PO DAILY tablet 12/03/16 12/19/16 Rx Ciprofloxacin/Dexameth Otic 4 drop BOTH EARS BID bottle 12/18/16 12/19/16 Rx [Ciprodex Otic Susp] metFORMIN [Glucophage] 1,000 mg PO BID W/MEALS tablet 12/18/16 12/19/16 Rx Aspirin [Ecotrin] 81 mg PO DAILY 12/19/16 12/19/16 History Clopidogrel [Plavix] 75 mg PO DAILY 12/19/16 12/19/16 History Minocycline [Minocin] 50 mg PO DAILY 12/19/16 12/19/16 History dilTIAZem HCl [Cartia XT] 240 mg PO BEDTIME 12/19/16 12/19/16 History Allergies/Adverse Reactions: Allergies Allergy/AdvReac Type Severity Reaction Status Date / Time Horse/Equine Containing Allergy Intermediate RASH Verified 11/21/16 18:31 Products Senmcrg-Vid-Mrz Reductase AdvReac Intermediate Cramping Verified 11/21/16 18:31 Inhibitor of the Muscles Medical,Surgical,& Family Hx - Medical History Cardio: History of: Cardiac Dysrhythmia, CAD, Hypertension, Valvular Heart Disease (Aortic valve stenosis) Neurology: History of: Migraine No history of: Seizures Endocrine: History of: Diabetes Mellitus (NIDDM), Dyslipidemia Respiratory: History of: Asthma, Obstructive Sleep Apnea Genitourinary: History of: Kidney Stones, Prostate Problems Musculoskeletal: History of: Back/Neck Problems, Degenerative Disk Disease, Herniated Disk, Musculoskeletal Problems No history of: Amputation Hematology: No history of: Blood Transfusion Reaction - Surgical History Cardiac Surgeries: Sugical HX of: Cardiac Catheterization, Cardiac Surgery ( CABG 1 and aortic valve replacement) Thoracic Surgeries: Patient denies;: Organ Transplant, Lobectomy Neurologic Surgeries: Patient denies: Neurologic Surgery HEENT Surgeries: Patient denies: Tonsilectomy & Adenoidectomy Abdominal Surgeries: Surgical HX of: Abdominal Surgery (spleen) Reproductive Surgeries: Patient denies;: Genitourinary Surgery - Family History Family History: Reports;: Family Diabetes, Family Heart Disease (Father had CABG ), Family Hypertension - Social History Smoking Status: Former smoker Frequency of Alcohol Use: None Type of Drug Use: None Physical Examination Vital Signs Temp Pulse Resp BP Pulse Ox 102.4 F H 84 24 154/66 98 12/19/16 04:52 12/19/16 04:52 12/19/16 04:52 12/19/16 04:52 12/19/16 04:52 Result/EKG - Labs CBC & BMP: 12/19/16 05:12 12/19/16 05:12 Labs: Laboratory Results - last 24 hr 12/19/16 12/19/16 12/19/16 05:12 05:12 05:12 WBC 10.8 RBC 3.79 L Hgb 11.0 L Hct 31.7 L MCV 83.6 L MCH 29 MCHC 34.7 RDW 14.5 Plt Count 668 H MPV 8.9 L Neut % (Auto) 85.7 H Lymph % (Auto) 6.7 L [place] % (Auto) 6.4 Eos % (Auto) 0.5 Baso % (Auto) 0.4 Neut # (Auto) 9.2 H Lymph # (Auto) 0.7 L [place] # (Auto) 0.7 Eos # (Auto) 0.1 Baso # (Auto) 0.0 Immature Gran % 0.3 Nucleated RBC % 0.0 Immature Gran # 0.03 Nucleated RBCs # 0.00 ABG pH ABG pCO2 ABG pO2 ABG HCO3 ABG Total CO2 ABG O2 Saturation ABG Base Excess FiO2 Sodium 122 L Potassium 4.1 Chloride 80 L Carbon Dioxide 26 Anion Gap 20.1 H BUN 13 Creatinine 1.60 H GFR Calculation 57 BUN/Creatinine Ratio 8.00 Glucose 123 H Calculated Osmolality 245.9 L Lactic Acid Calcium 7.6 L Magnesium 1.1 L Total Bilirubin 1.10 H AST 76 H ALT 47 Alkaline Phosphatase 199 H Total Creatine Kinase CK-MB (CK-2) Troponin I B-Natriuretic Peptide Total Protein 6.8 Albumin 3.1 L Globulin 3.7 H Albumin/Globulin Ratio 0.8 L Urine Color Yellow Urine Appearance Cloudy Urine pH 5.0 Ur Specific [place] 1.012 Urine Protein 30 Urine Glucose (UA) Negative Urine Ketones 20 Urine Blood Large Urine Nitrate Negative Urine Bilirubin Negative Urine Urobilinogen < 2.0 H Urine Leukocytes Negative Urine RBC 184 Urine WBC 4 Urine Bacteria Moderate Hyaline Casts 2 Urine Mucus Occasional Ur Culture Indicated? Not indicated 12/19/16 12/19/16 12/19/16 05:12 05:12 05:12 WBC RBC Hgb Hct MCV MCH MCHC RDW Plt Count MPV Neut % (Auto) Lymph % (Auto) [place] % (Auto) Eos % (Auto) Baso % (Auto) Neut # (Auto) Lymph # (Auto) [place] # (Auto) Eos # (Auto) Baso # (Auto) Immature Gran % Nucleated RBC % Immature Gran # Nucleated RBCs # ABG pH ABG pCO2 ABG pO2 ABG HCO3 ABG Total CO2 ABG O2 Saturation ABG Base Excess FiO2 Sodium Potassium Chloride Carbon Dioxide Anion Gap BUN Creatinine GFR Calculation BUN/Creatinine Ratio Glucose Calculated Osmolality Lactic Acid 1.7 Calcium Magnesium Total Bilirubin AST ALT Alkaline Phosphatase Total Creatine Kinase 147 CK-MB (CK-2) 1.8 Troponin I 0.022 B-Natriuretic Peptide 189 H Total Protein Albumin Globulin Albumin/Globulin Ratio Urine Color Urine Appearance Urine pH Ur Specific [place] Urine Protein Urine Glucose (UA) Urine Ketones Urine Blood Urine Nitrate Urine Bilirubin Urine Urobilinogen Urine Leukocytes Urine RBC Urine WBC Urine Bacteria Hyaline Casts Urine Mucus Ur Culture Indicated? 12/19/16 05:20 WBC RBC Hgb Hct MCV MCH MCHC RDW Plt Count MPV Neut % (Auto) Lymph % (Auto) [place] % (Auto) Eos % (Auto) Baso % (Auto) Neut # (Auto) Lymph # (Auto) [place] # (Auto) Eos # (Auto) Baso # (Auto) Immature Gran % Nucleated RBC % Immature Gran # Nucleated RBCs # ABG pH 7.529 H ABG pCO2 33.1 L ABG pO2 63.0 L ABG HCO3 27.0 H ABG Total CO2 28.0 H ABG O2 Saturation 94.5 L ABG Base Excess 4.4 H FiO2 28.00 Sodium Potassium Chloride Carbon Dioxide Anion Gap BUN Creatinine GFR Calculation BUN/Creatinine Ratio Glucose Calculated Osmolality Lactic Acid Calcium Magnesium Total Bilirubin AST ALT Alkaline Phosphatase Total Creatine Kinase CK-MB (CK-2) Troponin I B-Natriuretic Peptide Total Protein Albumin Globulin Albumin/Globulin Ratio Urine Color Urine Appearance Urine pH Ur Specific [place] Urine Protein Urine Glucose (UA) Urine Ketones Urine Blood Urine Nitrate Urine Bilirubin Urine Urobilinogen Urine Leukocytes Urine RBC Urine WBC Urine Bacteria Hyaline Casts Urine Mucus Ur Culture Indicated?
[2016-12-19] MEDS: CHOLECALCIFEROL 1,000 UNIT TABLET PO SCH (11:43)
[2016-12-19] MEDS: methylPREDNISolone SOD SUC 40 MG/1 ML VIAL IV SCH ×2 (11:43→23:51)
[2016-12-19] MEDS: INSULIN LISPRO 100 UNIT/ML SUBCUT SCH ×3 (13:02→21:16)
[2016-12-19] MEDS: ALBUTEROL/IPRATROPIUM 3 ML NEB RESP TX SCH ×2 (14:23→20:09)
[2016-12-19] MEDS ORDERED: FUROSEMIDE 40 MG/4 ML VIAL IV SCH (16:00)
[2016-12-19] MEDS ORDERED: DILTIAZEM CD 240 MG CAPSULE PO SCH (21:00)
[2016-12-19] MEDS ORDERED: CARVEDILOL 25 MG TABLET PO SCH (21:00)
[2016-12-19] MEDS: AMIODARONE 200 MG TABLET PO SCH (21:16)
[2016-12-19] MEDS: CIPROFLOXACIN/DEXAMETHASONE OTIC SUSP 7.5 ML BOTTLE BOTH EARS SCH ×2 (21:16→21:23)
[2016-12-19] MEDS: ATORVASTATIN 40 MG TABLET PO SCH (21:16)
[2016-12-20] MEDS: ALBUTEROL/IPRATROPIUM 3 ML NEB RESP TX SCH ×4 (00:39→18:52)
[2016-12-20 07:28] LABS: Basophils % 0.1 % (0.0-0.8); Hematocrit 28.2 VOL% (42.0-52.0); Hemoglobin 9.7 GM/DL (14.0-18.0); Immature Granulocytes % 0.7 %; Immature Granulocytes Absolute 0.07 #; Lymphocytes # 0.5 10*3/uL (1.4-4.0); Lymphocytes % 4.8 % (21.2-54.2); Mean Corpuscular HGB Conc 34.4 GM/DL (32-36); Mean Corpuscular Hemoglobin 29 PG (27-34); Mean Corpuscular Volume 84.9 FL (87-102); Monocytes # 0.2 10*3/uL (0.11-0.8); Monocytes % 1.8 % (1.7-12.7); Neutrophils # 9.8 10*3/uL (1.4-7.4); Neutrophils % 92.6 % (38.7-73.9); Platelet Count 578 T/CUMM (130-400); Red Blood Count 3.32 MC/CUMM (3.8-5.5); Red Cell Distribution Width 14.8 % (9.3-17.3); White Blood Count 10.6 T/CUMM (4-12)
[2016-12-20] MEDS: SODIUM CHLORIDE 0.9% 1,000 ML IV SCH (07:43)
[2016-12-20 07:49] LABS: Band Neutrophils 5 % (0-10); Burr Cells Slight; Hypochromasia 1+; Lymphocytes 2 % (20-55); Microcytosis Slight; Segmented Neutrophils 90 % (50-85); Total Cells Counted 100
[2016-12-20 08:32] LABS: Albumin 2.5 G/DL (3.4-5.0); Bilirubin,Total 0.8 MG/DL (0.2-1.0); Calcium 7.3 MG/DL (8.5-10.1); Magnesium 1.3 MG/DL (1.8-2.4); Osmolality,Calculated 262.8 MOS/KG (273-304); Potassium 3.8 MMOL/L (3.5-5.1); Risk Ratio 3.25; Thyroid Stimulating Hormone 1.2 uIU/ml (0.358-3.74); Total Protein 5.7 G/DL (6.4-8.3)
[2016-12-20] MEDS ORDERED: LISINOPRIL 5 MG TABLET PO SCH (09:00)
--- NOTE | 2016-12-20 09:50 | Hospitalist Progress Note ---
Assessment and Plan (1) Hypotension Status: Acute Assessment and plan: resolve, want to give 500 ml of NS Current Visit: Yes (2) COPD exacerbation Status: Acute Assessment and plan: duonebs, low dose steroids Current Visit: Yes (3) JORDAN (obstructive sleep apnea) Status: Chronic Assessment and plan: cpap at night Current Visit: No (4) Diabetes Status: Chronic Assessment and plan: isc restart metformin Current Visit: No (5) Obesity Status: Chronic Current Visit: No (6) Postoperative atrial fibrillation Status: Acute Assessment and plan: Continue amiodarone and Eliquis Current Visit: No (7) Status post coronary artery bypass graft Status: Acute Assessment and plan: Will get echocardiogram looking for pericardial effusion. Dr. Rice will follow Current Visit: No (8) Hypomagnesemia Status: Acute Assessment and plan: not replaced yesterday as instructed, will replace today Current Visit: Yes (9) Hyponatremia Status: Acute Assessment and plan: due to severe dehydration improve tremedously with NS, need free water restriction, siadh pattern Current Visit: Yes (10) Acute renal failure Status: Acute Assessment and plan: improved with hydration Current Visit: Yes Hospitalist: Subjective Interval history: Patient needs free water restriction more than anything. But has improved with the normal saline. Dr. Rice is started salt tablets. I will still give 500 mL's more of fluid. Patient feels 100% better today because he is not so dehydrated. I reviewed the history of his sodiums and he did not use to be hyponatremic. Exam - Constitutional Vitals: Period Temp Pulse Resp BP Sys/Brock Pulse Ox Last 24 Hr 97.4 F-98.5 F 69-82 16-20 86-127/43-62 90-99 Exam: Heart Rate-[RRR] Lungs-[CTAB but diminished ] GI-[+bs soft, NT] Ext-[no edema] Neuro [Motor 5/5], [alert and oriented times 3] psych [normal mood and flat affect] General [no acute distress] Results - Labs CBC & BMP: 12/20/16 07:13 12/20/16 07:13 Lab Results: I have reviewed the past 24 hour labs Labs: blood cx times 2 negative
[2016-12-20] MEDS ORDERED: SODIUM CHLORIDE 0.9% 500 ML IV SCH ×2 (10:00)
[2016-12-20] MEDS ORDERED: MAGNESIUM SULF RIDER 4 GM in PREMIX 1 EACH IV ONE (10:00)
[2016-12-20] MEDS: ASPIRIN EC 81 MG TABLET PO SCH (10:24)
[2016-12-20] MEDS: SODIUM CHLORIDE 1 GM TABLET PO SCH ×4 (10:24→22:14)
[2016-12-20] MEDS: APIXABAN 5 MG TABLET PO SCH ×2 (10:24→21:58)
[2016-12-20] MEDS: AMIODARONE 200 MG TABLET PO SCH ×2 (10:24→21:58)
[2016-12-20] MEDS: CHOLECALCIFEROL 1,000 UNIT TABLET PO SCH (10:24)
[2016-12-20] MEDS: INSULIN LISPRO 100 UNIT/ML SUBCUT SCH ×4 (10:24→22:08)
[2016-12-20] MEDS: CIPROFLOXACIN/DEXAMETHASONE OTIC SUSP 7.5 ML BOTTLE BOTH EARS SCH ×2 (10:25→21:57)
[2016-12-20] MEDS: methylPREDNISolone SOD SUC 40 MG/1 ML VIAL IV SCH ×2 (12:42→23:30)
--- NOTE | 2016-12-20 12:55 | ECHO Report ---
Garett Kam Exam Date: 12/19/2016 14:17 Referring Physician: Technologist: toshia Carvalho ARDMS, RVT Age: 76 Ht (in): 69 Wt (lb): 252 Gender: M Exam Location: [facility] Echo Indications: Shortness of breath, Acute renal failure, AVR, COPD, HYpokalemia BP: 127 / 62 HR: 75 Rhythm: Sinus Technical Quality: IMPRESSIONS The overall left ventricular ejection fraction is estimated at 55 % with no regional wall motion abnormality. The patient has mild concentric left ventricular hypertrophy with the posterior wall measuring 1.36 cm and the septal wall measuring 1.27 cm. There is grade I diastolic dysfunction. Tricuspid regurgitation velocities suggest a RVSP of 25 mmHg plus the right atrial pressure. Small posterior pericardial effusion. Pleural effusion MEASUREMENTS (Male / Female) Normal Values 2D ECHO LV Diastolic Diameter PLAX 2.9 cm 4.2 - 5.9 / 3.9 - 5.3 cm LV Systolic Diameter PLAX 2.0 cm LV Fractional Shortening PLAX 31.9 % IVS Diastolic Thickness 3.1 cm 0.6 - 1.0 / 0.6 - 0.9 cm LVPW Diastolic Thickness 1.8 cm 0.6 - 1.0 / 0.6 - 0.9 cm RV Internal Dim ED PLAX 2.4 cm Aortic Root Diameter 2.1 cm LA Systolic Diameter LX 4.7 cm 3.0 - 4.0 / 2.7 - 3.8 cm DOPPLER TR Peak Velocity 251.0 cm/s TR Peak Gradient 25.2 mmHg FINDINGS Left Ventricle The patient has mild concentric left ventricular hypertrophy with the posterior wall measuring 1.36 cm and the septal wall measuring 1.27 cm. The above numbers at 1.8 and 3.1 are incorrect. The overall left ventricular ejection fraction is estimated at 55 % with no regional wall motion abnormality. There is grade I diastolic dysfunction. Right Ventricle Normal right ventricular size and systolic function. Right Atrium Normal right atrial size. Left Atrium Moderately increased left atrial diameter. Mitral Valve Mild mitral valve sclerosis. Mild mitral valve regurgitation. Aortic Valve Normal prosthetic aortic valve. Good position and stable with no demonstrable gradient. Tricuspid Valve Morphologically normal tricuspid valve. Mild tricuspid valve regurgitation. Tricuspid regurgitation velocities suggest a RVSP of 25 mmHg plus the right atrial pressure. Pulmonic Valve Morphologically normal pulmonic valve. Pericardium Small posterior pericardial effusion. Aorta Normal size aortic root and proximal ascending aorta. Azalea Bee (Electronically Signed) Final Date: 20 December 2016 12:55
[2016-12-20] MEDS: metFORMIN 500 MG TABLET PO SCH (17:00)
[2016-12-20] MEDS: ATORVASTATIN 40 MG TABLET PO SCH (22:09)
[2016-12-21] MEDS: ALBUTEROL/IPRATROPIUM 3 ML NEB RESP TX SCH ×3 (00:19→12:15)
[2016-12-21] MEDS: SODIUM CHLORIDE 1 GM TABLET PO SCH ×4 (03:36→11:02)
[2016-12-21 05:16] LABS: Basophils % 0.1 % (0.0-0.8); Hematocrit 27.2 VOL% (42.0-52.0); Hemoglobin 9.2 GM/DL (14.0-18.0); Immature Granulocytes % 0.9 %; Immature Granulocytes Absolute 0.11 #; Lymphocytes # 0.4 10*3/uL (1.4-4.0); Lymphocytes % 3.4 % (21.2-54.2); Mean Corpuscular HGB Conc 33.8 GM/DL (32-36); Mean Corpuscular Hemoglobin 29 PG (27-34); Mean Corpuscular Volume 85.8 FL (87-102); Monocytes # 0.5 10*3/uL (0.11-0.8); Monocytes % 3.8 % (1.7-12.7); Neutrophils % 91.8 % (38.7-73.9); Platelet Count 612 T/CUMM (130-400); Red Blood Count 3.17 MC/CUMM (3.8-5.5)
[2016-12-21 05:41] LABS: Albumin 2.6 G/DL (3.4-5.0); Bilirubin,Total 0.7 MG/DL (0.2-1.0); Calcium 7.8 MG/DL (8.5-10.1); Magnesium 2.2 MG/DL (1.8-2.4); Osmolality,Calculated 272.2 MOS/KG (273-304); Potassium 3.7 MMOL/L (3.5-5.1); Total Protein 5.8 G/DL (6.4-8.3)
[2016-12-21 05:52] LABS: Band Neutrophils 1 % (0-10); Lymphocytes 3 % (20-55); Segmented Neutrophils 91 % (50-85); Total Cells Counted 100
[2016-12-21 05:53] LABS: Burr Cells Slight; Hypochromasia 1+; Microcytosis Slight; Ovalocytes Slight; Platelet Estimate Increased
[2016-12-21] MEDS: INSULIN LISPRO 100 UNIT/ML SUBCUT SCH (08:05)
[2016-12-21] MEDS: AMIODARONE 200 MG TABLET PO SCH (08:06)
[2016-12-21] MEDS: metFORMIN 500 MG TABLET PO SCH (08:06)
[2016-12-21] MEDS: CHOLECALCIFEROL 1,000 UNIT TABLET PO SCH (08:07)
[2016-12-21] MEDS: ASPIRIN EC 81 MG TABLET PO SCH (08:07)
[2016-12-21] MEDS: APIXABAN 5 MG TABLET PO SCH (08:08)
--- NOTE | 2016-12-21 09:49 | Discharge Summary ---
<Abundio Lei - Last Filed: 12/21/16 09:40> Hospital Course - Hospital Course Hospital Course: Mr. Kam is a 76-year-old obese white male status post aortic valve replacement and coronary artery bypass graft on 11/26 with a history of hypertension, diabetes mellitus, dyslipidemia, atrial fibrillation, coronary artery disease, and aortic stenosis. He was admitted through the [facility] with complaints of shortness of breath on 12/19/2016 after a recent discharge from the [facility] the previous day. On this admission, he was found to be hypotensive, have COPD exacerbation, in acute renal failure with electrolyte imbalance. He was started on IV normal saline and improved tremendously with a sodium on admission of 122 to 134. Urine osmo suggestive of SIADH and he has been educated on free water restriction. He was started on duo nebs and low-dose steroids for the COPD exacerbation. Chest xray shows atelectasis. Patient was noted to have obstructive sleep apnea and instructed to wear his CPAP at night. The remainder of his hospitalization was uncomplicated highlighted by fluid replacement and electrolyte replacement. It appears that the patient requires free water restriction more than anything. At this time he is reached maximum benefit from this hospitalization and is stable for discharge. He is to follow-up with Dr. Rice as previously planned as well as with his PCP in 1-2 weeks. Patient seen and examined, hospital course reviewed and edited. Discharge Plan - Discharge Data Disposition: Home Health Service - Discharge Medications New methylPREDNISolone DOSEPAK [Medrol Dosepak] 4 mg PO DIRECTED #1 pack Magnesium Oxide [Magox 400] 400 mg PO BID #60 tablet Albuterol/Ipratropium Neb [Duoneb] 3 ml RESP TX TID #90 vial Continue Aspirin [Ecotrin] 81 mg PO DAILY metFORMIN [Glucophage] 500 mg PO BID W/MEALS #0 tablet Cholecalciferol (Vitamin D3) [Vitamin D3] 1 capsule PO DAILY Amiodarone Tab [Cordarone Tab] 200 mg PO BID #90 tablet Apixaban [Eliquis] 5 mg PO BID tablet Atorvastatin [Lipitor] 40 mg PO BEDTIME tablet HYDROcodone/ACETAMIN 5-325 [[place] 5-325] 1 tablet PO Q4H PRN tablet PRN Reason: Pain Moderate (4-7) Ciprofloxacin/Dexameth Otic [Ciprodex Otic Susp] 4 drop BOTH EARS BID bottle Discontinued Krill Oil 1,250 mg PO BEDTIME Cinnamon Bark [Cinnamon] 2,000 mg PO DAILY Lisinopril [Prinivil] 5 mg PO DAILY tablet Clopidogrel [Plavix] 75 mg PO DAILY Minocycline [Minocin] 50 mg PO DAILY dilTIAZem HCl [Cartia XT] 240 mg PO BEDTIME Carvedilol 25 mg PO BID Colchicine 0.6 mg PO DAILY #60 tablet - Follow Up or Referral Follow Up: Dr Dejah [Other] - 2 Weeks Anselmo Rice [Physician] - (as scheduled ) - Forms/Instructions Exam - Constitutional Vitals: Period Temp Pulse Resp BP Sys/Brock Pulse Ox Last 24 Hr 97.6 F-98.3 F 80-84 17-20 117-125/57-72 95-98 Discharge Results Procedures and tests throughout hospitalization: Pending Orders 12/19/16 06:10 Blood Culture Stat 12/22/16 04:00 Comp Blood Count Auto Diff IN AM Comprehensive Metabolic Panel IN AM Magnesium IN AM Labs on day of discharge: Labs from last 24 hours 12/21/16 12/21/16 12/20/16 04:56 04:56 21:55 WBC 12.0 RBC 3.17 L Hgb 9.2 L Hct 27.2 L MCV 85.8 L MCH 29 MCHC 33.8 RDW 15.0 Plt Count 612 H MPV 9.0 L Neut % (Auto) 91.8 H Lymph % (Auto) 3.4 L [place] % (Auto) 3.8 Eos % (Auto) 0.0 Baso % (Auto) 0.1 Neut # (Auto) 11.0 H Lymph # (Auto) 0.4 L [place] # (Auto) 0.5 Eos # (Auto) 0.0 Baso # (Auto) 0.0 Total Counted 100 Immature Gran % 0.9 Nucleated RBC % 0.0 Immature Gran # 0.11 Segmented Neutrophils 91 H Band Neutrophils 1 Lymphocytes 3 L Monocytes 5 Nucleated RBCs # 0.00 Platelet Estimate Increased Hypochromasia 1+ Microcytosis Slight Ovalocytes Slight Caesar Cells Slight Sodium 134 L Potassium 3.7 Chloride 95 L Carbon Dioxide 28 Anion Gap 14.7 BUN 15 Creatinine 1.00 GFR Calculation 98 BUN/Creatinine Ratio 15.00 Glucose 162 H POC Glucose 162 H Calculated Osmolality 272.2 L Calcium 7.8 L Magnesium 2.2 Total Bilirubin 0.70 AST 56 H ALT 45 Alkaline Phosphatase 151 H Total Protein 5.8 L Albumin 2.6 L Globulin 3.2 Albumin/Globulin Ratio 0.8 L 12/20/16 12/20/16 16:38 11:22 WBC RBC Hgb Hct MCV MCH MCHC RDW Plt Count MPV Neut % (Auto) Lymph % (Auto) [place] % (Auto) Eos % (Auto) Baso % (Auto) Neut # (Auto) Lymph # (Auto) [place] # (Auto) Eos # (Auto) Baso # (Auto) Total Counted Immature Gran % Nucleated RBC % Immature Gran # Segmented Neutrophils Band Neutrophils Lymphocytes Monocytes Nucleated RBCs # Platelet Estimate Hypochromasia Microcytosis Ovalocytes [place] Cells Sodium Potassium Chloride Carbon Dioxide Anion Gap BUN Creatinine GFR Calculation BUN/Creatinine Ratio Glucose POC Glucose 193 H 177 H Calculated Osmolality Calcium Magnesium Total Bilirubin AST ALT Alkaline Phosphatase Total Protein Albumin Globulin Albumin/Globulin Ratio Preliminary micro results at discharge 12/19/16 06:10 Blood Culture - Preliminary Blood No growth at 1 day 12/19/16 05:30 Blood Culture - Preliminary Blood No growth at 1 day DS: Provider Date of admission: 12/19/16 08:27 Primary care physician: Ayesha Mckeon Attending physician on admission: Loulou Kessler MD Consults: 12/19/16 10:02 Consult to Physician [CONS] Routine Comment: Consulting Provider: Anselmo Rice 12/19/16 10:28 Consult to Dietitian [CONS] Routine Reason for Dietitian: Other Consult Comment: poor shruti, weight loss 12/20/16 14:34 Consult to Case Mgmt/Social Srvs [CONS] Routine Reason for Case Mgmt/Social Srvs: Home Health Consult Comment: nebulizer, pt, 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 Discharging clinician: Abundio ORONA Expected date of discharge: 12/21/16 <Loulou Kessler - Last Filed: 12/21/16 11:20> Hospital Course - Time spent with patient Time with patient DS: Greater than 30 minutes (40 min) Diagnosis - Discharge Diagnosis (1) Hypotension Status: Acute (2) COPD exacerbation Status: Acute (3) JORDAN (obstructive sleep apnea) Status: Chronic (4) Diabetes Status: Chronic (5) Obesity Status: Chronic (6) Postoperative atrial fibrillation Status: Acute (7) Status post coronary artery bypass graft Status: Acute (8) Hypomagnesemia Status: Acute (9) Hyponatremia Status: Acute (10) Acute renal failure Status: Acute Discharge Plan - Discharge Data Condition at Discharge: Stable Discharge Diet: diabetic diet Activity: resume usual activities as tolerated Hygiene: no restrictions Weight Bearing at Discharge: full weight bearing Driving: not until seen by doctor - Forms/Instructions Additional Discharge Instructions: nebulizer machine for home and home oxygen. free water restrict 2000 ml daily. portable oxygen tank, incentive spirometry for home 5 times an hour. Exam - Constitutional General appearance: no acute distress, over weight - Respiratory Respiratory exam: Present: clear to auscultation bilaterally, decreased breath sounds - Cardiovascular Cardiovascular exam: Present: regular rate and rhythm - GI/Abdominal GI/Abdominal exam: Present: normal bowel sounds, soft. Absent: tenderness - Extremities Exam Extremities exam: Present: normal inspection, normal capillary refill
[2016-12-21] MEDS: CIPROFLOXACIN/DEXAMETHASONE OTIC SUSP 7.5 ML BOTTLE BOTH EARS SCH (10:07)
[2016-12-21 11:39] VITALS: BP 127/61
== END 2016-12-21 14:55 | disposition home health service (06) | DRG 191 ==
LOC: EDUNIT# → EDBD → N.ED 04:41 → N.EDINP 08:27 → N.TELEN 09:37
PROVIDERS: ADMIT Internal Medicine; ATTEND Internal Medicine

== ENCOUNTER 2017-11-03 06:57 | Inpatient (IN) ==
[2017-10-30 09:27] LABS: Basophils # 0.1 10*3/uL (0.0-0.2); Basophils % 1.2 % (0.0-0.8); Eosinophils # 0.1 10*3/uL (0.0-0.87); Eosinophils % 1.8 % (0.00-10.9); Hematocrit 41.8 VOL% (42.0-52.0); Hemoglobin 13.5 GM/DL (14.0-18.0); Immature Granulocytes % 0.1 %; Immature Granulocytes Absolute 0.01 #; Lymphocytes # 2.8 10*3/uL (1.4-4.0); Lymphocytes % 41.3 % (21.2-54.2); Mean Corpuscular HGB Conc 32.3 GM/DL (32-36); Mean Corpuscular Hemoglobin 29 PG (27-34); Mean Corpuscular Volume 89.5 FL (87-102); Mean Platelet Volume 8.8 FL (9.6-12.0); Monocytes % 14.9 % (1.7-12.7); Neutrophils # 2.8 10*3/uL (1.4-7.4); Neutrophils % 40.7 % (38.7-73.9); Platelet Count 446 T/CUMM (130-400); Red Blood Count 4.67 MC/CUMM (3.8-5.5); Red Cell Distribution Width 16.9 % (9.3-17.3); White Blood Count 6.8 T/CUMM (4-12)
[2017-10-30 09:56] LABS: Albumin 3.4 G/DL (3.4-5.0); Bilirubin,Total 0.8 MG/DL (0.2-1.0); Calcium 8.8 MG/DL (8.5-10.1); Osmolality,Calculated 278.5 MOS/KG (273-304); Potassium 4.5 MMOL/L (3.5-5.1); Total Protein 6.8 G/DL (6.4-8.3)
[~2017-11-03 06:57] MED LIST: FAMOTIDINE 20 MG TABLET PO ONE; HEPARIN/NACL 0.9% 2 UNITS/ML 500 ML IV ONE; LORazepam 1 MG TABLET PO ONE; NITROGLYCERIN DRIP 50 MG/250 ML BOTTLE IV ONE; PHENYLEPHRINE 10 MG/1 ML VIAL IV ONE; ceFAZolin 1,000 MG in SYRINGE 1 EACH IV ONE
[2017-11-03] MEDS ORDERED: LORazepam 1 MG TABLET ONE (08:31)
[2017-11-03] MEDS ORDERED: FAMOTIDINE 20 MG TABLET ONE (08:31)
[2017-11-03] MEDS ORDERED: ceFAZolin 1,000 MG VIAL ONE (08:31)
[2017-11-03] MEDS ORDERED: LIDOCAINE 1% 50 ML VIAL ONE (10:49)
[2017-11-03] MEDS ORDERED: HEPARIN 5,000 UNIT/1 ML VIAL ONE (10:49)
[2017-11-03] MEDS ORDERED: HYDROmorphone 2 MG/1 ML VIAL IV PRN ×2 (12:47)
[2017-11-03] MEDS ORDERED: oxyCODONE/ACETAMINOPHEN 5-325 MG TABLET PO PRN ×2 (12:47)
[2017-11-03] MEDS ORDERED: DEXTROSE 50% 25 GM/50 ML VIAL IV PRN (12:47)
[2017-11-03] MEDS ORDERED: ONDANSETRON 4 MG/2 ML VIAL IV PRN (12:47)
[2017-11-03] MEDS ORDERED: NALOXONE 0.4 MG/ML VIAL IV PRN (12:47)
[2017-11-03] MEDS ORDERED: GLUCAGON 1 MG VIAL IM PRN (12:47)
[2017-11-03] MEDS ORDERED: PROMETHAZINE 25 MG/1 ML VIAL IM PRN (12:47)
[2017-11-03] MEDS ORDERED: IBUPROFEN 200 MG TABLET PO PRN (12:49)
[2017-11-03] MEDS ORDERED: MUPIROCIN 2% OINT 22 GM TUBE TOP PRN (13:00)
[2017-11-03] MEDS ORDERED: SUFentanil 50 MCG/ML AMP ONE (13:07)
[2017-11-03] MEDS ORDERED: HEPARIN 10,000 UNIT/10 ML VIAL ONE (13:07)
[2017-11-03] MEDS ORDERED: PROPOFOL 200 MG/20 ML VIAL IV ONE (13:07)
[2017-11-03] MEDS ORDERED: SEVOFLURANE 1 UNIT/15 MINUTE INH ONE (13:07)
[2017-11-03] MEDS ORDERED: ACETAMINOPHEN 1,000 MG/100 ML VIAL IV ONE (13:08)
[2017-11-03] MEDS ORDERED: PROTAMINE SULFATE 50 MG/5 ML VIAL IV ONE (13:08)
[2017-11-03] MEDS ORDERED: hydrALAZINE 20 MG/1 ML VIAL ONE (13:08)
[2017-11-03] MEDS ORDERED: GLYCOPYRROLATE 0.4 MG/2 ML VIAL ONE (13:08)
[2017-11-03] MEDS ORDERED: ONDANSETRON 4 MG/2 ML VIAL ONE (13:08)
[2017-11-03] MEDS ORDERED: SUCCINYLCHOLINE 200 MG/10 ML VIAL ONE (13:08)
[2017-11-03] MEDS ORDERED: DEXAMETHASONE 10 MG/1 ML VIAL ONE (13:08)
[2017-11-03] MEDS ORDERED: NEOSTIGMINE 10 MG/10 ML VIAL ONE (13:09)
[2017-11-03] MEDS ORDERED: ROCURONIUM 100 MG/10 ML VIAL IV ONE (13:09)
[2017-11-03] MEDS: LACTATED RINGERS 1,000 ML IV SCH ×3 (14:05→21:08)
[2017-11-03] MEDS: PHENYLEPHRINE DRIP 40 MG/250 ML PREMIX IV SCH ×2 (14:10→16:30)
[2017-11-03 17:21] LABS: Apearance,Urine CLEAR (Clear); Bilirubin,Urine Negative (Negative); Blood, Urine Negative (Negative); Glucose,Urine (UA) Negative (Negative); Ketones,Urine Negative (Negative); Nitrite,Urine Negative (Negative); Protein,Urine Negative; RBC,Urine 1 /HPF (0-4); Urine Color Straw (Yellow); Urine Specific Gravity 1.009 (1.001-1.035); Urine Urobilinogen < 2.0 EU/DL (0.2-1.0); WBC,Urine 1 /HPF (0-6)
[2017-11-03] MEDS: NITROPRUSSIDE 100 MG in DEXTROSE 5% 250 ML IV SCH (18:27)
[2017-11-03] MEDS ORDERED: CARVEDILOL 25 MG TABLET PO SCH (21:00)
[2017-11-03] MEDS ORDERED: VALSARTAN 80 MG TABLET PO SCH (21:00)
[2017-11-03] MEDS ORDERED: diphenhydrAMINE CAP 50 MG CAPSULE PO ONE (21:00)
[2017-11-03] MEDS: SULFAMETHOX/TRIMETHOPRIM 800-160 MG TABLET PO SCH (21:14)
[2017-11-03] MEDS: PITAVASTATIN 2 MG TABLET PO SCH (21:15)
[2017-11-03] MEDS: APIXABAN 5 MG TABLET PO SCH (21:15)
[2017-11-03] MEDS: AMIODARONE 200 MG TABLET PO SCH (21:15)
[2017-11-04] MEDS: LACTATED RINGERS 1,000 ML IV SCH ×4 (05:18→20:15)
[2017-11-04] MEDS ORDERED: TAMSULOSIN 0.4 MG CAPSULE PO SCH (09:00)
[2017-11-04] MEDS ORDERED: ASPIRIN EC 81 MG TABLET PO SCH (09:00)
[2017-11-04] MEDS: ASPIRIN EC 81 MG TABLET PO SCH (09:10)
[2017-11-04] MEDS: SULFAMETHOX/TRIMETHOPRIM 800-160 MG TABLET PO SCH ×2 (09:11→21:48)
[2017-11-04] MEDS: CYANOCOBALAMIN 500 MCG TABLET PO SCH (09:11)
[2017-11-04] MEDS: APIXABAN 5 MG TABLET PO SCH ×2 (09:11→21:49)
[2017-11-04] MEDS: CHOLECALCIFEROL 5,000 UNIT TABLET PO SCH (09:12)
[2017-11-04] MEDS: ACETAMINOPHEN 500 MG TABLET PO PRN (09:22)
[2017-11-04] MEDS: NITROPRUSSIDE 100 MG in DEXTROSE 5% 250 ML IV SCH (13:00)
[2017-11-04] MEDS: PHENYLEPHRINE DRIP 40 MG/250 ML PREMIX IV SCH (13:00)
[2017-11-04] MEDS ORDERED: diphenhydrAMINE CAP 50 MG CAPSULE PO PRN (13:56)
[2017-11-04] MEDS: PITAVASTATIN 2 MG TABLET PO SCH (21:47)
[2017-11-04] MEDS: TAMSULOSIN 0.4 MG CAPSULE PO SCH (21:48)
[2017-11-04] MEDS: AMIODARONE 200 MG TABLET PO SCH (21:49)
[2017-11-05] MEDS: ACETAMINOPHEN 500 MG TABLET PO PRN (00:39)
[2017-11-05] MEDS: LACTATED RINGERS 1,000 ML IV SCH ×3 (02:37→16:45)
[2017-11-05] MEDS ORDERED: diphenhydrAMINE CAP 25 MG CAPSULE ONE (08:34)
[2017-11-05] MEDS: SULFAMETHOX/TRIMETHOPRIM 800-160 MG TABLET PO SCH ×2 (08:45→20:44)
[2017-11-05] MEDS: CYANOCOBALAMIN 500 MCG TABLET PO SCH (08:45)
[2017-11-05] MEDS: diphenhydrAMINE CAP 25 MG CAPSULE PO PRN (08:45)
[2017-11-05] MEDS: CHOLECALCIFEROL 5,000 UNIT TABLET PO SCH (08:45)
[2017-11-05] MEDS: APIXABAN 5 MG TABLET PO SCH ×2 (08:46→20:45)
[2017-11-05] MEDS: ASPIRIN EC 81 MG TABLET PO SCH (08:46)
[2017-11-05] MEDS ORDERED: NITROPRUSSIDE 100 MG in DEXTROSE 5% 250 ML IV PRN (09:30)
[2017-11-05] MEDS: PHENYLEPHRINE DRIP 40 MG/250 ML PREMIX IV SCH (16:43)
[2017-11-05] MEDS: metFORMIN 500 MG TABLET PO SCH (16:44)
[2017-11-05 16:46] LABS: Calcium 7.9 MG/DL (8.5-10.1); Osmolality,Calculated 288.1 MOS/KG (273-304); Potassium 4.4 MMOL/L (3.5-5.1)
[2017-11-05] MEDS: PITAVASTATIN 2 MG TABLET PO SCH (20:44)
[2017-11-05] MEDS: TAMSULOSIN 0.4 MG CAPSULE PO SCH (20:44)
[2017-11-05] MEDS: AMIODARONE 200 MG TABLET PO SCH (20:44)
[2017-11-06] MEDS: diphenhydrAMINE CAP 25 MG CAPSULE PO PRN ×2 (00:15→20:49)
[2017-11-06] MEDS: ACETAMINOPHEN 500 MG TABLET PO PRN (05:10)
[2017-11-06 06:00] LABS: Calcium 8.1 MG/DL (8.5-10.1); Osmolality,Calculated 284.3 MOS/KG (273-304); Potassium 4.8 MMOL/L (3.5-5.1)
[2017-11-06] MEDS: LACTATED RINGERS 1,000 ML IV SCH (06:06)
[2017-11-06] MEDS: metFORMIN 500 MG TABLET PO SCH ×2 (08:47→16:40)
[2017-11-06] MEDS: CHOLECALCIFEROL 5,000 UNIT TABLET PO SCH (09:15)
[2017-11-06] MEDS: APIXABAN 5 MG TABLET PO SCH ×2 (09:15→20:46)
[2017-11-06] MEDS: CYANOCOBALAMIN 500 MCG TABLET PO SCH (09:15)
[2017-11-06] MEDS: SULFAMETHOX/TRIMETHOPRIM 800-160 MG TABLET PO SCH ×2 (09:15→20:46)
[2017-11-06] MEDS: ASPIRIN EC 81 MG TABLET PO SCH (09:16)
[2017-11-06] MEDS: PHENYLEPHRINE DRIP 40 MG/250 ML PREMIX IV SCH (16:40)
[2017-11-06] MEDS ORDERED: metFORMIN 500 MG TABLET PO SCH (17:29)
[2017-11-06] MEDS: AMIODARONE 200 MG TABLET PO SCH (20:46)
[2017-11-06] MEDS: TAMSULOSIN 0.4 MG CAPSULE PO SCH (20:47)
[2017-11-06] MEDS: PITAVASTATIN 2 MG TABLET PO SCH (21:51)
[2017-11-07] MEDS: ACETAMINOPHEN 500 MG TABLET PO PRN (05:05)
[2017-11-07 07:30] VITALS: BP 133/66
[2017-11-07] MEDS: CYANOCOBALAMIN 500 MCG TABLET PO SCH (09:15)
[2017-11-07] MEDS: metFORMIN 500 MG TABLET PO SCH (09:15)
[2017-11-07] MEDS: ASPIRIN EC 81 MG TABLET PO SCH (09:15)
[2017-11-07] MEDS: SULFAMETHOX/TRIMETHOPRIM 800-160 MG TABLET PO SCH (09:16)
[2017-11-07] MEDS: APIXABAN 5 MG TABLET PO SCH (09:16)
[2017-11-07] MEDS: CHOLECALCIFEROL 5,000 UNIT TABLET PO SCH (09:16)
== END 2017-11-07 12:37 | disposition home or self-care (01) | DRG 39 ==
LOC: N.SDSINP 06:57 → N.CC 14:03 → N.4E 11-06 23:47
PROVIDERS: ADMIT Surgery; ATTEND Surgery